=== PATIENT | female | born 1935 | race Two or more races ===

== ENCOUNTER 2016-05-14 | Inpatient (IN) | END 2017-05-13 23:59 | disposition other institution (70) | DRG 189 | DX: J96.10 Chronic respiratory failure, unspecified whether with hypoxia or hypercapnia (principal); I63.412 Cerebral infarction due to embolism of left middle cerebral artery; G93.1 Anoxic brain damage, not elsewhere classified; Z95.1 Presence of aortocoronary bypass graft; I48.2 Chronic atrial fibrillation; G20 Parkinson's disease; Z86.74 Personal history of sudden cardiac arrest; I25.10 Atherosclerotic heart disease of native coronary artery without angina pectoris; I12.9 Hypertensive chronic kidney disease with stage 1 through stage 4 chronic kidney disease, or unspecified chronic kidney disease; N18.9 Chronic kidney disease, unspecified; E78.5 Hyperlipidemia, unspecified ==

== ENCOUNTER 2016-09-16 20:59 | Inpatient (IN) | payer MEDICARE, MEDICAID ==
[~2016-09-16] VITALS: Ht 152.4 cm; Wt 59.0 kg
[~2016-09-16 20:59] MED LIST: ACET160S2 GT; ACID1TAB4 GT; ATOR10TA GT; BIOTENE ORALBAL42 GM MM; BISA10SU12 RC; BLOO-360 IN; CARB-93 GT; CHLO473M3 PO; DOCU100C36 GT; DOCU50LI GT; ENTA200T GT; GLUC10007 MM; HYDR118S4 TP; INSU100V10 SQ; LEVE100S GT; LEVO75TA7 GT; LORA10TA7 GT; MAGN400O6 GT; MODA100T14 GT; MULT240L GT; NA P133E RC; NYST15CR TP; OMEP20TA5 GT; POLY17PO4 GT; RIVA10TA GT; RIVA1PAT3 TD; SIME80TA15 PO; THIA100T8 GT; TRIA15CR2 TP; VITAMIN E OIL; ZINC57OI3 TP; [UNRECOGNIZED DRUG - OTHER]
[2016-09-16] MEDS ORDERED: IV NORMAL SALINE 500 ML BAG IV ONE (21:15)
[2016-09-16 21:34] LABS: BASOPHILS % (AUTO) 0.6 % (0.0-2.0); EOSINOPHILS # (AUTO) 0.3 K/uL (0.0-0.7); EOSINOPHILS % (AUTO) 4.6 % (0.0-7.0); HEMOGLOBIN 11.9 G/DL (12.0-16.0); LYMPHOCYTES # (AUTO) 2.2 K/uL (20.0-40.0); LYMPHOCYTES % (AUTO) 33.3 % (20.5-51.5); MEAN CORPUSCULAR HEMOGLOBIN 29.9 UUG (27.0-31.0); MEAN CORPUSCULAR HGB CONC 34 g/dL (32.0-37.0); MEAN CORPUSCULAR VOLUME 87.9 FL (81.0-99.0); MONOCYTES # (AUTO) 0.8 K/uL (2.0-10.0); MONOCYTES % (AUTO) 12.6 % (0.0-11.0); NEUTROPHILS # (AUTO) 3.2 K/uL (1.8-8.9); NEUTROPHILS % (AUTO) 48.9 % (38.5-71.5); PLATELET COUNT (AUTO) 219 K/UL (150-450); RED BLOOD CELL COUNT(AUTO) 3.98 MIL/UL (4.2-5.4); WHITE BLOOD COUNT (AUTO) 6.5 K/UL (4.0-11.2)
[2016-09-16 21:36] LABS: CREATININE 0.8 mg/dL (0.6-1.3); POTASSIUM 4.2 mmol/L (3.5-5.1)
[2016-09-16 21:49] LABS: BILIRUBIN,DIRECT 0.1 mg/dL (0.0-0.2); BILIRUBIN,TOTAL 0.4 mg/dL (0.2-1.0); TOTAL PROTEIN, SERUM 7.3 g/dL (6.4-8.2)
[2016-09-16] MEDS ORDERED: FAMO-132 GT (22:28)
[2016-09-16] MEDS ORDERED: SODI100010 PO (22:28)
[2016-09-16] MEDS ORDERED: DULO60CA45 PO (22:28)
[2016-09-16] MEDS ORDERED: DEXT50DI8 IV (22:28)
[2016-09-16] MEDS ORDERED: METO25TA6 GT (22:28)
[2016-09-16] MEDS ORDERED: RIVA1PAT2 TD (22:28)
[2016-09-16] MEDS ORDERED: RASA1TAB GT (22:28)
[2016-09-16] MEDS ORDERED: MEMA10TA GT (22:28)
[2016-09-16] MEDS ORDERED: CYAN10006 IM (22:28)
--- NOTE | 2016-09-16 22:51 | NUR ---
Call placed to [facility] for Panel call. Call back pending.
--- NOTE | 2016-09-16 23:08 | NUR ---
Pt. admitted to Telemetry , under care of Dr. Mendoza. Dx: Atrial Fibrilation with RVR. Belongs List completed
[2016-09-16] MEDS ORDERED: DIGOXIN 250 MCG TABLET PO ONE (23:30)
[2016-09-16] MEDS ORDERED: ACETAMINOPHEN 650 MG/20.3 ML LIQUID UDC GT PRN (23:30)
--- NOTE | 2016-09-16 23:30 | NUR ---
Patient arrived from ER via gurney, accompanied by son Toni. Patient is alert, non verbal, responds to name and touch, in no acute distress. Patient is placed on tele under the care of Dr. Mendoza. Dx: Afib w/ rapid ventricular response. Routine admission plan of care done, belonging list done. Will continue to monitor. Addendum: 09/17/16 at 0458 by BAUTISTA SNOWDEN RN Routine admission care done, plan of care initiated.
[2016-09-16] MEDS ORDERED: ONDANSETRON 4 MG/2 ML VIAL IV PRN (23:45)
[2016-09-16] MEDS ORDERED: DEXTROSE 50% 50 ML DISP.SYRIN IV PRN (23:45)
[2016-09-16] MEDS ORDERED: DIGOXIN 125 MCG TABLET ONE (23:56)
[2016-09-17 00:15] VITALS: BP 106/72
[2016-09-17 04:00] VITALS: BP 125/68
[2016-09-17] MEDS: BLOOD SUGAR DIAGNOSTIC 1 EACH STRIP VI SCH ×4 (06:38→20:46)
--- NOTE | 2016-09-17 06:45 | NUR ---
Patient slept intermittently, in no acute distress. All trach/respiratory supplies available at bedside. Patient on tele Afib
[2016-09-17] MEDS ORDERED: DIGOXIN 500 MCG/2 ML AMP IV ONE (07:30)
[2016-09-17 07:57] LABS: BILIRUBIN,TOTAL 0.2 mg/dL (0.2-1.0); CREATININE 0.8 mg/dL (0.6-1.3); MAGNESIUM 1.7 mg/dL (1.8-2.4); PHOSPHOROUS 4.1 mg/dL (2.5-4.9); POTASSIUM 4.1 mmol/L (3.5-5.1); TOTAL PROTEIN, SERUM 7.1 g/dL (6.4-8.2)
[2016-09-17] MEDS: PANTOPRAZOLE ORAL SUSPENSION 40 MG SUSPDR.PKT GT SCH (08:02)
[2016-09-17 08:03] LABS: EOSINOPHILS # (AUTO) 0.3 K/uL (0.0-0.7); EOSINOPHILS % (AUTO) 4.2 % (0.0-7.0); HEMATOCRIT 34.1 % (37-47); HEMOGLOBIN 11.6 G/DL (12.0-16.0); LYMPHOCYTES # (AUTO) 2.3 K/uL (20.0-40.0); LYMPHOCYTES % (AUTO) 31.4 % (20.5-51.5); MEAN CORPUSCULAR HEMOGLOBIN 30.2 UUG (27.0-31.0); MEAN CORPUSCULAR HGB CONC 34 g/dL (32.0-37.0); MONOCYTES # (AUTO) 0.9 K/uL (2.0-10.0); MONOCYTES % (AUTO) 12.7 % (0.0-11.0); NEUTROPHILS # (AUTO) 3.8 K/uL (1.8-8.9); NEUTROPHILS % (AUTO) 51.7 % (38.5-71.5); PLATELET COUNT (AUTO) 216 K/UL (150-450); RED BLOOD CELL COUNT(AUTO) 3.83 MIL/UL (4.2-5.4); WHITE BLOOD COUNT (AUTO) 7.3 K/UL (4.0-11.2)
[2016-09-17] MEDS ORDERED: BETH25TA PO (09:20)
[2016-09-17] MEDS ORDERED: BACL10TA PO (09:20)
[2016-09-17] MEDS ORDERED: BISA10SU8 RC (09:21)
[2016-09-17] MEDS ORDERED: CARB-94 GT (09:22)
[2016-09-17] MEDS ORDERED: LEVO75TA7 GT (09:25)
[2016-09-17] MEDS ORDERED: MODA200T22 PO (09:26)
[2016-09-17] MEDS ORDERED: CRAN500C3 GT (09:27)
[2016-09-17] MEDS ORDERED: HYDR118S4 TP (09:30)
[2016-09-17] MEDS ORDERED: INSU100V28 SQ (09:35)
[2016-09-17] MEDS ORDERED: RIVASTIGMINE 4.6 MG PATCH TD SCH (10:00)
[2016-09-17] MEDS ORDERED: MULTIVITAMINS THERAPEUTIC GT SCH (10:00)
[2016-09-17] MEDS ORDERED: MODAFINIL 200 MG PO SCH (10:00)
[2016-09-17] MEDS ORDERED: BISACODYL 10 MG SUPP.RECT RC PRN (10:00)
[2016-09-17] MEDS ORDERED: SIMETHICONE 80 MG TAB.CHEW GT PRN (10:00)
[2016-09-17] MEDS: MAGNESIUM SULFATE/D5W 100 ML IV SCH ×2 (10:52→11:47)
[2016-09-17] MEDS: LEVETIRACETAM 500 MG/5 ML LIQUID UDC GT SCH ×2 (11:12→20:06)
[2016-09-17] MEDS: MIRALAX 17 GM POWD.PACK GT SCH (11:12)
[2016-09-17] MEDS: MODAFINIL 100 MG TABLET GT SCH (11:13)
[2016-09-17] MEDS: ACIDOPHILUS/BULGARICUS CHEW TAB GT SCH ×2 (11:13→20:06)
[2016-09-17] MEDS: MEMANTINE HCL 10 MG TABLET GT SCH ×2 (11:13→16:50)
[2016-09-17] MEDS: DOCUSATE SODIUM 100 MG/10 ML LIQUID UDC GT SCH ×2 (11:13→20:06)
[2016-09-17] MEDS: BETHANECHOL CHLORIDE 25 MG TABLET GT SCH ×3 (11:13→16:50)
[2016-09-17] MEDS: RIVASTIGMINE 13.3 MG TOP SCH (11:15)
[2016-09-17 11:56] VITALS: BP 132/94
[2016-09-17] MEDS ORDERED: METOPROLOL TARTRATE 5 MG/5 ML VIAL IVP PRN (12:00)
--- NOTE | 2016-09-17 12:00 | NUR ---
HEART RATE SUSTAINING ON 127-130 AFIB LAND ACQUISITION ANALYST NOTIFIED WITH ORDERS. STATUS CHANGE TO JOSE
[2016-09-17] MEDS: CARBIDOPA/LEVODOPA 25-250MG TABLET GT SCH ×3 (13:07→20:06)
[2016-09-17] MEDS: ENTACAPONE 200 MG TABLET GT SCH ×3 (13:07→20:06)
[2016-09-17] MEDS: INSULIN REGULAR, HUMAN 300 UNIT/3 ML VIAL SQ PRN ×3 (13:17→20:49)
--- NOTE | 2016-09-17 14:30 | NUR ---
DR DILLARD CHANGED PATIENT STATUS TO JOSE, REMAINS AFIB, IN AND OUT CONTROLLED/UNCONTROLLED, NO SIGNS OF DISTRESS NOTED.
[2016-09-17 16:34] VITALS: BP 115/69
[2016-09-17] MEDS: METOPROLOL TARTRATE 25 MG TABLET GT SCH ×2 (16:50→21:53)
[2016-09-17 17:34] LABS: *BILIRUBIN,URIN NEGATIVE (NEGATIVE); *BLOOD, URINE Trace-intact (NEGATIVE); *CLARITY,URINE SLIGHTLY CLOUDY (CLEAR); *COLOR,URINE YELLOW (YELLOW); *KETONES,URINE NEGATIVE (NEGATIVE); *PROTEIN,URINE NEGATIVE (NEGATIVE); *UROBILINOGEN,URINE 0.2 E.U./dl (NORMAL); LEUKOCYTE ESTERASE ,URINE 2+ (NEGATIVE); NITRITE, URINE NEGATIVE (NEGATIVE); PH,URINE 5.5 (5.0-8.0); UGLUCOSE NEGATIVE (NEGATIVE)
[2016-09-17 18:00] LABS: BACTERIA,URINE MANY /HPF (NONE SEEN); SQUAMOUS EPITHELIAL CELL,UR FEW /HPF (NONE SEEN); WBC,URINE 50-80 /HPF (0-3)
[2016-09-17 20:00] VITALS: BP 112/82
--- NOTE | 2016-09-17 20:00 | NUR ---
PT RECEIVED IN BED RESTING COMFORTABLY, SON AT BEDSIDE. IV HEP LOCK IN LEFT FOREARM #20 INTACT AND FLUSHED WITH SALINE. PT HAS G-TUBE INTACT AND CHECKED FOR PLACEMENT, RESIDUAL 5CC. BLOOD PRESSURE WNL, SPO2 AT 95%, TRACH COLLAR INTACT AT 6L. PATIENT REMAINS ON TELE MONITOR, A-FIB CONTROLLED/UNCONTROLLED, PT ASYMPTOMATIC. NO ACUTE DISTRESS NOTED. BED IN LOW AND LOCKED POSITION. SAFETY MEASURES MAINTAINED.
[2016-09-17] MEDS ORDERED: METOPROLOL TARTRATE 25 MG TABLET GT SCH (21:00)
[2016-09-17] MEDS ORDERED: DULOXETINE 60 MG CAPSULE.DR PO SCH (21:00)
[2016-09-17] MEDS ORDERED: BACLOFEN 10 MG TABLET GT SCH (21:00)
[2016-09-17] MEDS ORDERED: RIVAROXABAN 15 MG TABLET GT SCH (21:00)
[2016-09-17] MEDS ORDERED: INSULIN DETEMIR 300 UNIT/3 ML CARTRIDGE SQ SCH (21:00)
[2016-09-17] MEDS ORDERED: THIAMINE HCL 100 MG TABLET GT SCH (21:00)
[2016-09-17] MEDS ORDERED: RIVAROXABAN 10 MG TABLET GT SCH (21:00)
[2016-09-17] MEDS ORDERED: RASAGILINE 1 MG GT SCH (21:00)
[2016-09-17] MEDS ORDERED: ATORVASTATIN 10 MG TABLET GT SCH (21:00)
[2016-09-17] MEDS ORDERED: MULTIVITS W-FE,OTHER MIN 15 ML UDC GT SCH (21:00)
[2016-09-17] MEDS ORDERED: CEFTRIAXONE 1 G in IV DEXTROSE 5% 50 ML IV SCH (21:00)
[2016-09-17] MEDS ORDERED: ATORVASTATIN 40 MG TABLET GT SCH (21:00)
--- NOTE | 2016-09-17 22:00 | NUR ---
PT TOLERATED MEDICATIONS AT BEDTIME. BLOOD SUGAR 170MG/DL NO SIGNS AND SYMPTOMS HYPO/HYPERGLYCEMIA. PT GIVEN BOOST VIA G-TUBE, TOLERATED WELL, RESIDUAL 5CC. NO ACUTE DISTRESS NOTED. WILL CONTINUE TO MONITOR FOR SAFETY.
[2016-09-17] MEDS ORDERED: CEFTRIAXONE 500 MG VIAL ONE (22:17)
[2016-09-17 23:25] VITALS: BP 103/65
--- NOTE | 2016-09-17 23:30 | NUR ---
PATIENT REMAINS ON TELE MONITOR, SHOWING SINUS ANISHA BUT UNSUSTAINABLE AND RETURNING TO 70/S, MD ON UNIT AND MADE AWARE, NO INTERVENTIONS ORDERED. WILL CONTINUE TO MONITOR FOR SAFETY.
[2016-09-18] VITALS: BP 106/66
[2016-09-18] MEDS: ENTACAPONE 200 MG TABLET GT SCH ×4 (00:28→12:27)
[2016-09-18] MEDS: CARBIDOPA/LEVODOPA 25-250MG TABLET GT SCH ×4 (00:28→12:27)
--- NOTE | 2016-09-18 03:19 | NUR ---
PATIENT RESTING COMFORTABLY IN BED AT THIS TIME. PT ON TELE MONITOR IN THE 80'S. NO ACUTE DISTRESS NOTED. WILL CONTINUE TO MONITOR FOR SAFETY.
[2016-09-18 04:00] VITALS: BP 123/86
[2016-09-18] MEDS: METOPROLOL TARTRATE 25 MG TABLET GT SCH ×2 (05:28→14:00)
[2016-09-18] MEDS: PANTOPRAZOLE ORAL SUSPENSION 40 MG SUSPDR.PKT GT SCH (05:28)
--- NOTE | 2016-09-18 05:37 | NUR ---
patient tolerated medications well via g-tube, residual 5cc. Pt suctioned prn as ordered. No acute distress noted. safety measures maintained.
[2016-09-18] MEDS ORDERED: LEVOTHYROXINE SODIUM 75 MCG TABLET GT SCH (06:00)
--- NOTE | 2016-09-18 06:21 | NUR ---
PATIENT BLOOD SUGAR THIS AM 130MG/DL, NO S/S HYPO/HYPERGLYCEMIA. PT ASSISTED WITH DIAPER CHANGE BY STAFF. PT SUCTIONED NEEDED. HEP LOCK INTACT. TRACH AT 6L SPO2 AT 95%. NO ACUTE DISTRESS NOTED. SAFETY MEASURES MAINTAINED.
[2016-09-18] MEDS: BLOOD SUGAR DIAGNOSTIC 1 EACH STRIP VI SCH ×2 (06:30→12:28)
[2016-09-18 07:06] LABS: THYROID STIMULATING HORMONE 2.884 mIU/mL (0.358-3.740)
[2016-09-18 07:17] LABS: BASOPHILS % (AUTO) 0.3 % (0.0-2.0); EOSINOPHILS # (AUTO) 0.4 K/uL (0.0-0.7); EOSINOPHILS % (AUTO) 5.4 % (0.0-7.0); HEMATOCRIT 36.3 % (37-47); LYMPHOCYTES # (AUTO) 2.1 K/uL (20.0-40.0); MEAN CORPUSCULAR HEMOGLOBIN 29.4 UUG (27.0-31.0); MEAN CORPUSCULAR HGB CONC 33 g/dL (32.0-37.0); MEAN CORPUSCULAR VOLUME 88.7 FL (81.0-99.0); MONOCYTES # (AUTO) 0.8 K/uL (2.0-10.0); MONOCYTES % (AUTO) 10.8 % (0.0-11.0); NEUTROPHILS # (AUTO) 4.5 K/uL (1.8-8.9); NEUTROPHILS % (AUTO) 56.5 % (38.5-71.5); PLATELET COUNT (AUTO) 231 K/UL (150-450); WHITE BLOOD COUNT (AUTO) 7.8 K/UL (4.0-11.2)
[2016-09-18 07:57] LABS: BILIRUBIN,TOTAL 0.5 mg/dL (0.2-1.0); CREATININE 0.6 mg/dL (0.6-1.3); MAGNESIUM 2.3 mg/dL (1.8-2.4); PHOSPHOROUS 3.5 mg/dL (2.5-4.9); POTASSIUM 4.2 mmol/L (3.5-5.1); TOTAL PROTEIN, SERUM 7.3 g/dL (6.4-8.2)
--- NOTE | 2016-09-18 08:00 | NUR ---
RECEIVED IN BED AWAKE CONFUSED AND DISORIENTED BUT WITH [employer] CONTACT ALL NEEDS ANTICIPATED AND SATISFIED.MAX ASSIST FOR ALL ADL.ORAL FOOD GIVEN HER GT REMAINS INTACT BUT NOT IN USE AT THIS TIME.TRACH INTACT WITH O2 WITH NO SHORTNESS OF BREATH NOT IN DISTRESS NOTED.
[2016-09-18] MEDS: MIRALAX 17 GM POWD.PACK GT SCH (08:49)
[2016-09-18] MEDS: DOCUSATE SODIUM 100 MG/10 ML LIQUID UDC GT SCH (08:49)
[2016-09-18] MEDS: LEVETIRACETAM 500 MG/5 ML LIQUID UDC GT SCH (08:49)
[2016-09-18] MEDS: MEMANTINE HCL 10 MG TABLET GT SCH (08:50)
[2016-09-18] MEDS: BETHANECHOL CHLORIDE 25 MG TABLET GT SCH ×2 (08:50→12:27)
[2016-09-18] MEDS: MODAFINIL 100 MG TABLET GT SCH (08:50)
[2016-09-18] MEDS: RIVASTIGMINE 13.3 MG TOP SCH (08:50)
[2016-09-18] MEDS: ACIDOPHILUS/BULGARICUS CHEW TAB GT SCH (08:50)
[2016-09-18] MEDS ORDERED: DULOXETINE 20 MG CAPSULE.DR PO SCH (09:00)
--- NOTE | 2016-09-18 10:00 | NUR ---
PHYSICAL SCIENCE AIDE AT THE BEDSIDE AND REQUESTING FOR HER DIET TO BE CHANGED TO REGULAR CONSISITENCY DIET SHAHZAD TERRY NOTIFIED WITH NO NEW ORDER AT THIS TIME.
[2016-09-18] MEDS ORDERED: INSU100I19 SQ (11:49)
[2016-09-18] MEDS ORDERED: THIA100T13 GT (11:49)
[2016-09-18] MEDS ORDERED: INSU100V28 SQ (11:49)
[2016-09-18] MEDS ORDERED: DOCU50LI GT (11:49)
[2016-09-18] MEDS ORDERED: ACID1TAB4 GT (11:49)
[2016-09-18] MEDS ORDERED: RIVA15TA GT (11:49)
[2016-09-18] MEDS ORDERED: BISA10SU12 RC (11:49)
[2016-09-18] MEDS ORDERED: LEVO75TA7 GT (11:49)
[2016-09-18] MEDS ORDERED: Patient's Own Med TOP (11:49)
[2016-09-18] MEDS ORDERED: DULO20CA PO (11:49)
[2016-09-18] MEDS ORDERED: SIME80TA45 GT (11:49)
[2016-09-18] MEDS ORDERED: Patient's Own Med GT (11:49)
[2016-09-18] MEDS ORDERED: ATOR40TA GT (11:49)
[2016-09-18] MEDS ORDERED: Blood Sugar Diagnostic VI (11:49)
[2016-09-18] MEDS ORDERED: LEVE100S GT (11:49)
[2016-09-18] MEDS ORDERED: PANT40SU2 GT (11:49)
[2016-09-18] MEDS ORDERED: POLY17PO4 GT (11:49)
[2016-09-18] MEDS ORDERED: MODA100T14 GT (11:49)
[2016-09-18] MEDS ORDERED: Ondansetron Hcl/Pf IV (11:49)
[2016-09-18] MEDS ORDERED: ACET650S26 GT (11:49)
[2016-09-18] MEDS ORDERED: MEMA10TA GT (11:49)
[2016-09-18] MEDS ORDERED: Baclofen GT (11:49)
[2016-09-18] MEDS ORDERED: ENTA200T GT (11:49)
[2016-09-18] MEDS ORDERED: CEFT1PIG2 IV (11:49)
[2016-09-18] MEDS ORDERED: BETH25TA9 GT (11:49)
[2016-09-18] MEDS ORDERED: DEXT50DI8 IV (11:49)
[2016-09-18] MEDS ORDERED: Metoprolol Tartrate GT (11:49)
[2016-09-18] MEDS ORDERED: MULT240L3 GT (11:49)
[2016-09-18] MEDS ORDERED: CARB1TAB24 GT (11:49)
[2016-09-18 11:57] VITALS: BP 130/80
[2016-09-18] MEDS: INSULIN REGULAR, HUMAN 300 UNIT/3 ML VIAL SQ PRN (12:30)
[2016-09-18 14:00] VITALS: BP 129/79
--- NOTE | 2016-09-18 14:10 | NUR ---
PATIENT DISCHARGED BY BED PICKED TO SUB ACUTE 4TH FLOOR ORDERED AND REPORT GIVEN TO THE RN FOR CONTINUING CARE HEPLOCK LEFT FOREARM REMAINS INTACT AT THIS TIME.
== END 2016-09-18 14:10 | DRG 309 ==
LOC: ER 21:01 → TELE 23:12 → TELE-TD 09-17 12:01 → TELE 09-17 16:10
PROVIDERS: ADMIT Internal Medicine; ATTEND Nurse Practitioner Acute Care
PROC: 5A1935Z Respiratory Ventilation, Less than 24 Consecutive Hours (ICD-10-PCS; principal; 2016-09-17)
DX: I48.91 Unspecified atrial fibrillation (principal); G93.1 Anoxic brain damage, not elsewhere classified; E44.0 Moderate protein-calorie malnutrition; J96.10 Chronic respiratory failure, unspecified whether with hypoxia or hypercapnia; N39.0 Urinary tract infection, site not specified; I69.354 Hemiplegia and hemiparesis following cerebral infarction affecting left non-dominant side; I48.92 Unspecified atrial flutter; D64.9 Anemia, unspecified; I25.10 Atherosclerotic heart disease of native coronary artery without angina pectoris; Z95.1 Presence of aortocoronary bypass graft; Z93.0 Tracheostomy status; Z93.1 Gastrostomy status; E03.9 Hypothyroidism, unspecified; R13.10 Dysphagia, unspecified; Z88.8 Allergy status to other drugs, medicaments and biological substances; Z74.01 Bed confinement status; Z86.74 Personal history of sudden cardiac arrest; G20 Parkinson's disease; I50.9 Heart failure, unspecified; E11.65 Type 2 diabetes mellitus with hyperglycemia; E83.42 Hypomagnesemia; E78.5 Hyperlipidemia, unspecified; Z87.01 Personal history of pneumonia (recurrent); Z86.718 Personal history of other venous thrombosis and embolism; G40.909 Epilepsy, unspecified, not intractable, without status epilepticus; I12.9 Hypertensive chronic kidney disease with stage 1 through stage 4 chronic kidney disease, or unspecified chronic kidney disease; E11.22 Type 2 diabetes mellitus with diabetic chronic kidney disease; N18.9 Chronic kidney disease, unspecified
CPT/HCPCS: 36415; 70030-TC; 71010; 83735; 84100; 84443; 85025; 85730; 87077; 87086; 93005; 93307; A4217; A4663; C1758; J0696; J1160; J1815; J3475; J3490; J7040; J7050; J7060

== ENCOUNTER 2017-05-14 | Inpatient (IN) | END 2018-05-13 11:59 | disposition other institution (70) | DRG 189 | DX: J96.11 Chronic respiratory failure with hypoxia (principal); I50.33 Acute on chronic diastolic (congestive) heart failure; J69.0 Pneumonitis due to inhalation of food and vomit; N17.0 Acute kidney failure with tubular necrosis; R53.2 Functional quadriplegia; G93.1 Anoxic brain damage, not elsewhere classified; D68.59 Other primary thrombophilia; I13.0 Hypertensive heart and chronic kidney disease with heart failure and stage 1 through stage 4 chronic kidney disease, or unspecified chronic kidney disease; I48.92 Unspecified atrial flutter; I69.351 Hemiplegia and hemiparesis following cerebral infarction affecting right dominant side; M48.56XA Collapsed vertebra, not elsewhere classified, lumbar region, initial encounter for fracture; N39.0 Urinary tract infection, site not specified; D50.9 Iron deficiency anemia, unspecified; Z95.1 Presence of aortocoronary bypass graft; I48.2 Chronic atrial fibrillation; G20 Parkinson's disease; Z86.74 Personal history of sudden cardiac arrest; I25.10 Atherosclerotic heart disease of native coronary artery without angina pectoris; I12.9 Hypertensive chronic kidney disease with stage 1 through stage 4 chronic kidney disease, or unspecified chronic kidney disease; N18.9 Chronic kidney disease, unspecified; E78.5 Hyperlipidemia, unspecified; B96.1 Klebsiella pneumoniae [K. pneumoniae] as the cause of diseases classified elsewhere; B96.20 Unspecified Escherichia coli [E. coli] as the cause of diseases classified elsewhere; E03.9 Hypothyroidism, unspecified; I69.398 Other sequelae of cerebral infarction; E11.22 Type 2 diabetes mellitus with diabetic chronic kidney disease; E11.649 Type 2 diabetes mellitus with hypoglycemia without coma; F02.80 Dementia in other diseases classified elsewhere, unspecified severity, without behavioral disturbance, psychotic disturbance, mood disturbance, and anxiety; G89.29 Other chronic pain; I48.0 Paroxysmal atrial fibrillation; T80.89XA Other complications following infusion, transfusion and therapeutic injection, initial encounter; Y84.8 Other medical procedures as the cause of abnormal reaction of the patient, or of later complication, without mention of misadventure at the time of the procedure; Y92.230 Patient room in hospital as the place of occurrence of the external cause; Z79.01 Long term (current) use of anticoagulants; I49.5 Sick sinus syndrome; I69.320 Aphasia following cerebral infarction; I70.0 Atherosclerosis of aorta; I70.8 Atherosclerosis of other arteries; J40 Bronchitis, not specified as acute or chronic; K40.90 Unilateral inguinal hernia, without obstruction or gangrene, not specified as recurrent; K59.00 Constipation, unspecified; K80.20 Calculus of gallbladder without cholecystitis without obstruction; K82.8 Other specified diseases of gallbladder; L30.9 Dermatitis, unspecified; M19.90 Unspecified osteoarthritis, unspecified site; M77.31 Calcaneal spur, right foot; N31.9 Neuromuscular dysfunction of bladder, unspecified; R13.10 Dysphagia, unspecified; Z93.0 Tracheostomy status; Z74.01 Bed confinement status; Z87.440 Personal history of urinary (tract) infections; Z93.1 Gastrostomy status ==

== ENCOUNTER 2017-08-15 22:19 | Inpatient (IN) | payer MEDICARE, MEDICAID ==
[~2017-08-15] VITALS: Ht 152.4 cm; Wt 62.7 kg
[~2017-08-15 22:19] MED LIST changes: -ACET160S2 GT; +ACET650S26 GT; -ATOR10TA GT; +ATOR40TA GT; +BETH25TA9 GT; -BLOO-360 IN; +Baclofen GT; +Blood Sugar Diagnostic VI; -CARB-93 GT; +CARB1TAB24 GT; +CEFT1PIG2 IV; -CHLO473M3 PO; +DEXT50DI8 IV; -DOCU100C36 GT; +DULO20CA PO; +INSU100I19 SQ; -INSU100V10 SQ; +INSU100V28 SQ; -LORA10TA7 GT; -MAGN400O6 GT; +MEMA10TA GT; -MULT240L GT; +MULT240L3 GT; +Metoprolol Tartrate GT; -NA P133E RC; -NYST15CR TP; -OMEP20TA5 GT; +Ondansetron Hcl/Pf IV; +PANT40SU2 GT; +Patient's Own Med GT; +Patient's Own Med TOP; -RIVA10TA GT; +RIVA15TA GT; -RIVA1PAT3 TD; -SIME80TA15 PO; +SIME80TA45 GT; +THIA100T13 GT; -THIA100T8 GT; -TRIA15CR2 TP; -VITAMIN E OIL; -[UNRECOGNIZED DRUG - OTHER]
--- NOTE | 2017-08-15 22:25 | NUR ---
PT BROUGHT DOWN FROM SUBACUTE FOR REPORTED BRADYCARDIA IN THE HIGH 30'S-40'S. PT PRESENTS W/ TRACH, FE, AND PRATIBHA. PT PLACED ON MONITOR AND PULSE OX. EKG COMPLETED.
--- NOTE | 2017-08-15 22:42 | NUR ---
DR GLEZ, MUKUND MD AT BEDSIDE FOR MSE.
--- NOTE | 2017-08-15 23:15 | NUR ---
LAB AT BLOOD SIDE FOR BLOOD DRAW. URINE SAMPLE FROM [place] PROVIDED.
[2017-08-15 23:17] LABS: *BILIRUBIN,URIN NEGATIVE (NEGATIVE); *BLOOD, URINE NEGATIVE (NEGATIVE); *CLARITY,URINE CLEAR (CLEAR); *COLOR,URINE YELLOW (YELLOW); *KETONES,URINE NEGATIVE (NEGATIVE); *PROTEIN,URINE NEGATIVE (NEGATIVE); *UROBILINOGEN,URINE 0.2 E.U./dl (NORMAL); LEUKOCYTE ESTERASE ,URINE 2+ (NEGATIVE); NITRITE, URINE NEGATIVE (NEGATIVE); PH,URINE 8.5 (5.0-8.0); UGLUCOSE NEGATIVE (NEGATIVE)
[2017-08-15 23:18] LABS: BASOPHILS % (AUTO) 0.4 % (0.0-2.0); EOSINOPHILS # (AUTO) 0.1 K/uL (0.0-0.7); EOSINOPHILS % (AUTO) 2.1 % (0.0-7.0); HEMATOCRIT 33.3 % (31.2-41.9); HEMOGLOBIN 11.3 g/dL (10.9-14.3); LYMPHOCYTES # (AUTO) 1.7 K/uL (20.0-40.0); LYMPHOCYTES % (AUTO) 24.9 % (20.5-51.5); MEAN CORPUSCULAR HGB CONC 34 g/dL (32.3-35.6); MEAN CORPUSCULAR VOLUME 90.9 fL (75.5-95.3); MONOCYTES % (AUTO) 14.9 % (0.0-11.0); NEUTROPHILS # (AUTO) 3.9 K/uL (1.8-8.9); NEUTROPHILS % (AUTO) 57.7 % (38.5-71.5); PLATELET COUNT (AUTO) 176 K/uL (179-408); RED BLOOD CELL COUNT(AUTO) 3.66 MIL/uL (3.63-4.92); WHITE BLOOD COUNT (AUTO) 6.8 K/uL (3.8-11.8)
[2017-08-15 23:27] LABS: CARBON DIOXIDE 28 mmol/L (21-32); CHLORIDE 102 mmol/L (98-107); CREATININE 0.7 mg/dL (0.6-1.3); GLUCOSE 147 mg/dL (74-106); UREA NITROGEN, BLOOD 23 mg/dL (7-18)
[2017-08-15 23:28] LABS: BACTERIA,URINE FEW /HPF (NONE SEEN); SQUAMOUS EPITHELIAL CELL,UR FEW /HPF (NONE SEEN); YEAST,URINE FEW /HPF (NONE SEEN)
[2017-08-15 23:29] LABS: RENAL EPITHELIAL CELLS,URINE FEW /LPF (NONE SEEN)
--- NOTE | 2017-08-15 23:30 | NUR ---
CALLED FOR BED ASSIGNMENT IN JOSE.
[2017-08-15 23:39] LABS: ALANINE AMINOTRANSFERASE 23 U/L (14-59); ALKALINE PHOSPHATASE 76 U/L (50-136); ASPARTATE AMINOTRANSFERASE 21 U/L (15-37); BILIRUBIN,DIRECT 0.1 mg/dL (0.0-0.2); BILIRUBIN,TOTAL 0.4 mg/dL (0.2-1.0); TOTAL PROTEIN, SERUM 7.9 g/dL (6.4-8.2)
--- NOTE | 2017-08-15 23:57 | NUR ---
Panel call placed for patient admission.
[2017-08-16] VITALS (7 sets, daily range): BP systolic 104–140; BP diastolic 35–74
--- NOTE | 2017-08-16 00:03 | NUR ---
XRAY AT PT BEDSIDE.
[2017-08-16] MEDS ORDERED: CEFTRIAXONE 1 G in IV DEXTROSE 5% 50 ML IV SCH (01:00)
[2017-08-16] MEDS ORDERED: ONDANSETRON 4 MG/2 ML VIAL IV PRN (01:00)
[2017-08-16] MEDS ORDERED: ACETAMINOPHEN 325 MG TABLET PO PRN (01:00)
[2017-08-16] MEDS ORDERED: MAGNESIUM HYDROXIDE 30 ML LIQUID UDC PO PRN (01:00)
[2017-08-16] MEDS ORDERED: DEXTROSE 50% 50 ML DISP.SYRIN IV PRN ×3 (01:15→14:15)
[2017-08-16] MEDS ORDERED: SIMETHICONE 80 MG TAB.CHEW GT PRN (01:15)
[2017-08-16] MEDS ORDERED: INSULIN REGULAR, HUMAN 300 UNIT/3 ML VIAL SQ PRN ×3 (01:15→08:45)
[2017-08-16] MEDS ORDERED: MULTIVITS W-FE,OTHER MIN 15 ML UDC GT SCH ×2 (01:15→07:30)
[2017-08-16] MEDS ORDERED: BISACODYL 10 MG SUPP.RECT RC PRN (01:15)
--- NOTE | 2017-08-16 01:48 | NUR ---
Pt. admitted to JOSE, under care of Dr. SIU Belongs List completed
[2017-08-16] MEDS ORDERED: CEFTRIAXONE 1 G VIAL ONE (01:49)
--- NOTE | 2017-08-16 01:50 | NUR ---
Ad[facility] this [facility] NSTEMI. Patient is non verbal, with trach Shiley #[address], O2Sat 100% in O2 6L/mask. Placed on cook pressure- shows sinus Bradycardia 43. Vital signs shows BP 140/35 HR 43 T= 98.6F/oral. No signs of distress noted. Lab shows patient has elevated WBC in urine. Rocephin 1 gm IVPB supposed to be given but it was D/Cd by MD & switched to Cefepime 1 gm. Family in room, very anxious & wants their mother to be moved to ICU & be seen by the Healthcare Management ADA. Paged MD telephone order supervisor.
--- NOTE | 2017-08-16 02:15 | NUR ---
Patient resting comfortably, sinus Morris on the monitor HR 43. But family remains anxious & now requesting for a hospital ([facility]) transfer. notified.
[2017-08-16] MEDS: CARBIDOPA/LEVODOPA 25-250MG TABLET GT SCH ×6 (02:39→23:21)
[2017-08-16] MEDS: ENTACAPONE 200 MG TABLET GT SCH ×6 (02:39→23:21)
[2017-08-16] MEDS ORDERED: CEFEPIME HCL 1 G VIAL ONE (05:43)
[2017-08-16] MEDS: CEFEPIME HCL 1 G in IV DEXTROSE 5% 50 ML IV SCH ×2 (05:49→14:08)
[2017-08-16] MEDS: LEVOTHYROXINE SODIUM 75 MCG TABLET GT SCH (05:51)
[2017-08-16] MEDS: ACETAMINOPHEN 650 MG/20.3 ML LIQUID UDC GT PRN (05:51)
[2017-08-16] MEDS ORDERED: PANTOPRAZOLE ORAL SUSPENSION 40 MG SUSPDR.PKT GT SCH (06:00)
--- NOTE | 2017-08-16 06:00 | NUR ---
Scheduled Cefepime IV antibiotic not administered. Family (Ali/son) refused. Tele sinus justina HR 44. No signs of distress noted.
--- NOTE | 2017-08-16 07:23 | NUR ---
Patient moved to CCU (bed 3) but JOSE status. Shift report given to KEVIN Moody.
[2017-08-16] MEDS: ACIDOPHILUS/BULGARICUS CHEW TAB GT SCH ×2 (08:58→21:02)
[2017-08-16] MEDS: DOCUSATE SODIUM 100 MG/10 ML LIQUID UDC GT SCH ×2 (08:58→21:01)
[2017-08-16] MEDS: MIRALAX 17 GM POWD.PACK GT SCH (08:58)
[2017-08-16] MEDS: MEMANTINE HCL 10 MG TABLET GT SCH ×2 (08:58→16:28)
[2017-08-16] MEDS ORDERED: [UNRECOGNIZED DRUG - OTHER] TOP SCH (09:00)
[2017-08-16] MEDS ORDERED: PATIENT MAY USE OWN MED- MD OK TOP SCH (09:00)
[2017-08-16] MEDS ORDERED: DULOXETINE 20 MG CAPSULE.DR PO SCH (09:00)
[2017-08-16] MEDS: LEVETIRACETAM 500 MG/5 ML LIQUID UDC GT SCH ×2 (09:15→21:01)
[2017-08-16] MEDS: BETHANECHOL CHLORIDE 25 MG TABLET GT SCH ×3 (09:15→16:28)
[2017-08-16] MEDS: MODAFINIL 100 MG TABLET GT SCH (09:24)
--- NOTE | 2017-08-16 10:27 | NUR ---
US tech here to see pt for 2D Echocardiogram.
[2017-08-16] MEDS ORDERED: FAMO20TA8 GT (12:22)
[2017-08-16] MEDS ORDERED: MAGN400T30 PO ×2 (12:22→12:24)
[2017-08-16] MEDS ORDERED: FAMO-130 GT (12:23)
[2017-08-16] MEDS ORDERED: AMAN100T GT (12:25)
[2017-08-16] MEDS ORDERED: CALC-245 PO (12:25)
[2017-08-16] MEDS ORDERED: CHOL10002 PO (12:25)
[2017-08-16] MEDS ORDERED: NUT.237L70 PO (12:26)
[2017-08-16] MEDS: [UNRECOGNIZED DRUG - OTHER] TOP SCH (13:19)
[2017-08-16] MEDS: RIVASTIGMINE TOP SCH (13:19)
[2017-08-16] MEDS ORDERED: METOPROLOL TARTRATE 25 MG TABLET GT SCH (14:00)
[2017-08-16] MEDS ORDERED: CRAN450T9 GT (14:50)
[2017-08-16] MEDS: BLOOD SUGAR DIAGNOSTIC 1 EACH STRIP VI SCH ×3 (15:08→23:26)
--- NOTE | 2017-08-16 15:34 | NUR ---
Dr. Briones here to see pt. Full report given. New orders received.
[2017-08-16] MEDS ORDERED: BLOOD SUGAR DIAGNOSTIC 1 EACH STRIP VI SCH (18:00)
--- NOTE | 2017-08-16 19:30 | NUR ---
mathew BROWNoptical engineering manager tel # [phone],transfer is denied not a candidate for transfer not a candidate for intervention .
--- NOTE | 2017-08-16 20:00 | NUR ---
patient in bed JOSE status . awake ,non verbal ,with trach Shiley #4 with oxygen at 4liters/ min hob up saturation 96 to 98 % rr 20 to 25.hob up ,Cortés catheter to bedside drain and peg clamp . patient now with diet mechanical soft . patient daughter and son at bedside ,spoked to patients son about patient condition and medications .continue nursing care .
--- NOTE | 2017-08-16 20:34 | NUR ---
dr:dolly ALVAREZ came and explained to patient, daughter and son at bedside not a candidate for pace maker at this time and will check TSH and T4 low . PER MD bp is wnl.HR 48 sinus bradycardia ,will continue to observed.
[2017-08-16] MEDS: AMOXICILLIN-CLAVUL 875-125MG TABLET GT SCH (21:00)
[2017-08-16] MEDS ORDERED: [UNRECOGNIZED DRUG - OTHER] GT SCH (21:00)
[2017-08-16] MEDS ORDERED: INSULIN DETEMIR 300 UNIT/3 ML CARTRIDGE SQ SCH (21:00)
[2017-08-16] MEDS: BACLOFEN 10 MG TABLET GT SCH (21:01)
[2017-08-16] MEDS: ATORVASTATIN 40 MG TABLET GT SCH (21:01)
[2017-08-16] MEDS: DULOXETINE 20 MG CAPSULE.DR PO SCH (21:02)
[2017-08-16] MEDS: THIAMINE HCL 100 MG TABLET GT SCH (21:02)
[2017-08-16] MEDS: RIVAROXABAN 15 MG TABLET GT SCH (21:03)
[2017-08-16] MEDS: [UNRECOGNIZED DRUG - OTHER] PO SCH (21:05)
[2017-08-16] MEDS: RASAGILINE PO SCH (21:05)
[2017-08-16] MEDS: INSULIN GLARGINE,HUM 300 UNITS/3 ML CARTRIDGE SQ SCH (21:47)
[2017-08-16] MEDS ORDERED: MISCELLANEOUS MED SQ SCH (22:45)
[2017-08-16] MEDS ORDERED: MISCELLANEOUS MED XX PRN (23:00)
--- NOTE | 2017-08-16 23:00 | NUR ---
domingoeo medication subcutaneous requested by son and claimed she gets every night new medication order ,provided by family not given after pharmacy hours . it has to be checked by a pharmacist called after hours pharmacy cannot be given needs pharmacist to checked on the medication . .
[2017-08-16] MEDS: BOOST GLUCOSE CONTROL 237 ML LIQUID (VANILLA) PO SCH (23:19)
--- NOTE | 2017-08-17 00:15 | NUR ---
noted patient moaning and very restless /agitated kicking/waving left leg all around and shaking/waving the left arm hand ,given prn Tylenol via the peg .
[2017-08-17] MEDS: ACETAMINOPHEN 650 MG/20.3 ML LIQUID UDC GT PRN ×2 (00:25→08:51)
[2017-08-17 01:40] VITALS: BP 93/65
[2017-08-17] MEDS: CEFEPIME HCL 1 G in IV DEXTROSE 5% 50 ML IV SCH ×2 (02:19→13:44)
[2017-08-17 03:16] VITALS: BP 159/57
[2017-08-17] MEDS: ENTACAPONE 200 MG TABLET GT SCH ×5 (03:25→20:28)
[2017-08-17] MEDS: CARBIDOPA/LEVODOPA 25-250MG TABLET GT SCH ×5 (03:25→20:28)
[2017-08-17] MEDS: LEVOTHYROXINE SODIUM 75 MCG TABLET GT SCH (05:05)
[2017-08-17] MEDS: BLOOD SUGAR DIAGNOSTIC 1 EACH STRIP VI SCH ×3 (05:42→17:38)
[2017-08-17 05:55] LABS: BASOPHILS % (AUTO) 0.6 % (0.0-2.0); EOSINOPHILS % (AUTO) 0.7 % (0.0-7.0); HEMOGLOBIN 11.1 g/dL (10.9-14.3); LYMPHOCYTES # (AUTO) 1.3 K/uL (20.0-40.0); LYMPHOCYTES % (AUTO) 17.9 % (20.5-51.5); MEAN CORPUSCULAR HGB CONC 34 g/dL (32.3-35.6); MEAN CORPUSCULAR VOLUME 91.8 fL (75.5-95.3); MONOCYTES # (AUTO) 0.9 K/uL (2.0-10.0); MONOCYTES % (AUTO) 12.2 % (0.0-11.0); NEUTROPHILS % (AUTO) 68.6 % (38.5-71.5); PLATELET COUNT (AUTO) 174 K/uL (179-408); RED BLOOD CELL COUNT(AUTO) 3.59 MIL/uL (3.63-4.92); WHITE BLOOD COUNT (AUTO) 7.3 K/uL (3.8-11.8)
[2017-08-17 06:36] LABS: THYROID STIMULATING HORMONE 1.665 mIU/mL (0.358-3.740)
[2017-08-17 06:40] LABS: ALANINE AMINOTRANSFERASE 17 U/L (14-59); ALKALINE PHOSPHATASE 77 U/L (50-136); ASPARTATE AMINOTRANSFERASE 18 U/L (15-37); BILIRUBIN,TOTAL 0.5 mg/dL (0.2-1.0); CARBON DIOXIDE 22 mmol/L (21-32); CHLORIDE 107 mmol/L (98-107); CHOLESTEROL 109 mg/dL (<200); CREATININE 0.8 mg/dL (0.6-1.3); GLUCOSE 140 mg/dL (74-106); HDL CHOLESTEROL 44 mg/dL (40-60); PHOSPHOROUS 4.2 mg/dL (2.5-4.9); POTASSIUM 4.1 mmol/L (3.5-5.1); TRIGLYCERIDES 90 MG/DL (30-150); UREA NITROGEN, BLOOD 27 mg/dL (7-18)
[2017-08-17] MEDS: MORPHINE SULFATE 2 MG/1 ML DISP.SYRIN IV PRN (07:00)
--- NOTE | 2017-08-17 07:04 | NUR ---
patient very restless and very agitated moans and groans ,kicking using left leg and hitting using the left hand given prn morphine continue to monitor levels of comfort .
[2017-08-17] MEDS ORDERED: PANTOPRAZOLE ORAL SUSPENSION 40 MG SUSPDR.PKT GT SCH (07:30)
[2017-08-17 08:00] VITALS: BP 127/86
[2017-08-17] MEDS: MODAFINIL 100 MG TABLET GT SCH (08:14)
[2017-08-17] MEDS: MIRALAX 17 GM POWD.PACK GT SCH (08:14)
[2017-08-17] MEDS: HYDROCODONE/APAP 5-325MG TABLET PO PRN (08:15)
[2017-08-17] MEDS: ACIDOPHILUS/BULGARICUS CHEW TAB GT SCH ×2 (08:15→20:39)
[2017-08-17] MEDS: DOCUSATE SODIUM 100 MG/10 ML LIQUID UDC GT SCH ×2 (08:15→20:38)
[2017-08-17] MEDS: LEVETIRACETAM 500 MG/5 ML LIQUID UDC GT SCH ×2 (08:15→20:30)
[2017-08-17] MEDS: MEMANTINE HCL 10 MG TABLET GT SCH ×2 (08:15→16:10)
[2017-08-17] MEDS: [UNRECOGNIZED DRUG - OTHER] TOP SCH (08:16)
[2017-08-17] MEDS: RIVASTIGMINE TOP SCH (08:16)
[2017-08-17] MEDS: AMOXICILLIN-CLAVUL 875-125MG TABLET GT SCH ×2 (08:16→20:29)
[2017-08-17] MEDS: BOOST GLUCOSE CONTROL 237 ML LIQUID (VANILLA) PO SCH ×3 (08:17→20:41)
[2017-08-17] MEDS: BETHANECHOL CHLORIDE 25 MG TABLET GT SCH ×3 (08:17→16:09)
--- NOTE | 2017-08-17 10:09 | NUR ---
Call made to imaging aide regarding elevated troponin levels. Awaiting return call.
[2017-08-17 12:00] VITALS: BP 143/68
[2017-08-17] MEDS: INSULIN REGULAR, HUMAN 300 UNIT/3 ML VIAL SQ PRN ×2 (12:34→17:41)
--- NOTE | 2017-08-17 15:34 | NUR ---
Dr. Briones here to see pt. Full report given. aware of pt's high blood pressure. New orders received.
[2017-08-17 16:00] VITALS: BP 118/61
[2017-08-17] MEDS: LOSARTAN POTASSIUM 25 MG TABLET PO SCH (16:05)
--- NOTE | 2017-08-17 16:20 | NUR ---
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 NO SIGNIFICANT WT CHANGES WITHIN 30, 90, AND 180 DAYS. Current Diet Order/Nutrition Support [facility] SOFT/CCHO 60 GM Patient /S.O Not Indicated Pertinent Medications MAGNESIUM OXIDE, VITAMIN D, CALCIUM CITRATE, PEPCID, SSI, MVI, MIRALAX, SYNTHROID, LOPRESSOR, FLORANEX, COLACE, LIPITOR, INSULIN, VITAMIN B1 DNI- SYNTHROID - ADMINISTER 1 HR BEFORE OR AFTER MEALS Pertinent Labs 07/31 poc 138(H) Height (Feet) 5 feet Patient Height 60 in Current Weight 139 lbs Body Mass Index (BMI) 27.2 Recent Weight Change Yes Weight Status Appropriate Gastrointestinal Symptoms None Difficult in: Chewing Swallowing Food Allergies No Cultural/Ethnic/Oriental Orthodox Belief MORMONISM Usual diet at home tf Skin Integrity/Comment: left groin excoriation Current %PO Good (75-100%) BEE in Kcals: Using Current wt Calories/Kcals/Kg 25-30 Kcals Calculated 0658-1827 Protein: Using Current wt: Protein g/k.9-1.1 Protein Calculated 50-62 Fluid: ml [id number] Nutrition Problem #1 ALTERED NUTRITION RELATED LABS Signs/Symptoms #1 REFER TO LAB Etiology #1 MODERATE TO POOR BLOOD GLUCOSE Comments TOLERATING DIET Expected Outcomes/Goals 1)MAINTAIN 75-100% OF PO INTAKE DURING HOSPITAL STAY 2)NO SIGNIFICANT WT CHANGES DURING HOSPITAL STAY 3)IMPROVED BG CONTROL Addendum: 08/17/17 at [address] Amended: Links added.
[2017-08-17 20:00] VITALS: BP 159/76
[2017-08-17] MEDS: BACLOFEN 10 MG TABLET GT SCH (20:33)
[2017-08-17] MEDS: RIVAROXABAN 15 MG TABLET GT SCH (20:34)
[2017-08-17] MEDS: [UNRECOGNIZED DRUG - OTHER] PO SCH (20:35)
[2017-08-17] MEDS: RASAGILINE PO SCH (20:35)
[2017-08-17] MEDS: ATORVASTATIN 40 MG TABLET GT SCH (20:39)
[2017-08-17] MEDS: THIAMINE HCL 100 MG TABLET GT SCH (20:39)
[2017-08-17] MEDS: DULOXETINE 20 MG CAPSULE.DR PO SCH (20:41)
[2017-08-17] MEDS: MULTIVIT, IRON, MIN NO. 8, FA TABLET PO SCH (20:42)
[2017-08-17] MEDS: FORTEO 20 MCG SQ SCH (20:42)
[2017-08-17] MEDS: INSULIN GLARGINE,HUM 300 UNITS/3 ML CARTRIDGE SQ SCH (20:43)
[2017-08-18 00:01] VITALS: BP 126/72
[2017-08-18] MEDS: BLOOD SUGAR DIAGNOSTIC 1 EACH STRIP VI SCH ×5 (00:20→23:35)
[2017-08-18] MEDS: INSULIN REGULAR, HUMAN 300 UNIT/3 ML VIAL SQ PRN ×5 (00:36→23:36)
[2017-08-18] MEDS: CARBIDOPA/LEVODOPA 25-250MG TABLET GT SCH ×7 (00:37→23:35)
[2017-08-18] MEDS: ENTACAPONE 200 MG TABLET GT SCH ×7 (00:37→23:35)
[2017-08-18] MEDS: CEFEPIME HCL 1 G in IV DEXTROSE 5% 50 ML IV SCH ×2 (01:53→14:40)
[2017-08-18 04:00] VITALS: BP 118/90
[2017-08-18] MEDS: LEVOTHYROXINE SODIUM 75 MCG TABLET GT SCH (05:09)
[2017-08-18 05:19] LABS: BASOPHILS % (AUTO) 0.4 % (0.0-2.0); EOSINOPHILS # (AUTO) 0.1 K/uL (0.0-0.7); EOSINOPHILS % (AUTO) 1.2 % (0.0-7.0); HEMATOCRIT 32.1 % (31.2-41.9); HEMOGLOBIN 10.7 g/dL (10.9-14.3); LYMPHOCYTES # (AUTO) 1.3 K/uL (20.0-40.0); LYMPHOCYTES % (AUTO) 15.9 % (20.5-51.5); MEAN CORPUSCULAR HEMOGLOBIN 30.4 uug (24.7-32.8); MEAN CORPUSCULAR HGB CONC 34 g/dL (32.3-35.6); MEAN CORPUSCULAR VOLUME 90.7 fL (75.5-95.3); MONOCYTES # (AUTO) 1.2 K/uL (2.0-10.0); MONOCYTES % (AUTO) 15.5 % (0.0-11.0); NEUTROPHILS # (AUTO) 5.3 K/uL (1.8-8.9); PLATELET COUNT (AUTO) 177 K/uL (179-408); RED BLOOD CELL COUNT(AUTO) 3.54 MIL/uL (3.63-4.92); WHITE BLOOD COUNT (AUTO) 7.9 K/uL (3.8-11.8)
[2017-08-18 05:38] LABS: ALANINE AMINOTRANSFERASE 17 U/L (14-59); ALKALINE PHOSPHATASE 72 U/L (50-136); ASPARTATE AMINOTRANSFERASE 18 U/L (15-37); BILIRUBIN,TOTAL 0.6 mg/dL (0.2-1.0); CARBON DIOXIDE 27 mmol/L (21-32); CHLORIDE 107 mmol/L (98-107); CREATININE 0.8 mg/dL (0.6-1.3); GLUCOSE 179 mg/dL (74-106); PHOSPHOROUS 3.4 mg/dL (2.5-4.9); POTASSIUM 4.2 mmol/L (3.5-5.1); TOTAL PROTEIN, SERUM 7.9 g/dL (6.4-8.2); UREA NITROGEN, BLOOD 33 mg/dL (7-18)
[2017-08-18 06:20] LABS: EOSINOPHILS % (MANUAL) 2 % (0-8); LYMPHOCYTES % (MANUAL) 17 % (20-40); MONOCYTES % (MANUAL) 11 % (2-10); NEUTROPHILS % (MANUAL) 70 % (42-75)
[2017-08-18] MEDS: HYDROCODONE/APAP 5-325MG TABLET PO PRN (07:48)
[2017-08-18] MEDS: Z GUARD REMEDY PASTE 57 GM TUBE TOP PRN (07:49)
[2017-08-18 08:00] VITALS: BP 90/52
--- NOTE | 2017-08-18 08:00 | NUR ---
Pt.in bed A/O none verbal,no s/s of distress or pain noted.
[2017-08-18] MEDS: DOCUSATE SODIUM 100 MG/10 ML LIQUID UDC GT SCH ×2 (08:04→20:36)
[2017-08-18] MEDS: MIRALAX 17 GM POWD.PACK GT SCH (08:04)
[2017-08-18] MEDS: AMOXICILLIN-CLAVUL 875-125MG TABLET GT SCH ×2 (08:05→20:36)
[2017-08-18] MEDS: BETHANECHOL CHLORIDE 25 MG TABLET GT SCH ×3 (08:05→16:40)
[2017-08-18] MEDS: LEVETIRACETAM 500 MG/5 ML LIQUID UDC GT SCH ×2 (08:05→20:36)
[2017-08-18] MEDS: MEMANTINE HCL 10 MG TABLET GT SCH ×2 (08:05→16:40)
[2017-08-18] MEDS: ACIDOPHILUS/BULGARICUS CHEW TAB GT SCH ×2 (08:05→20:37)
[2017-08-18] MEDS: MODAFINIL 100 MG TABLET GT SCH (08:05)
[2017-08-18] MEDS: RIVASTIGMINE TOP SCH (08:06)
[2017-08-18] MEDS: LOSARTAN POTASSIUM 25 MG TABLET PO SCH (08:06)
[2017-08-18] MEDS: [UNRECOGNIZED DRUG - OTHER] TOP SCH (08:06)
[2017-08-18] MEDS: BOOST GLUCOSE CONTROL 237 ML LIQUID (VANILLA) PO SCH ×3 (08:08→21:00)
--- NOTE | 2017-08-18 11:40 | NUR ---
Pt.son at bedside,updated with pt.condition and plan of care.
[2017-08-18 12:00] VITALS: BP 113/83
[2017-08-18] MEDS: ACETAMINOPHEN 650 MG/20.3 ML LIQUID UDC GT PRN (12:09)
[2017-08-18] MEDS: MORPHINE SULFATE 2 MG/1 ML DISP.SYRIN IV PRN (13:19)
--- NOTE | 2017-08-18 13:20 | NUR ---
Pt. very restless and kicking using left arm & leg and hitting prn morphine given continue to monitor levels of comfort .
--- NOTE | 2017-08-18 14:45 | NUR ---
Pt.was seen by JUAN DE LEON.
[2017-08-18 16:00] VITALS: BP 120/74
--- NOTE | 2017-08-18 17:40 | NUR ---
Pt.was seen by ,no orders .
--- NOTE | 2017-08-18 19:40 | NUR ---
PT TRANSFERRED WITH YESSY RN FROM CCU-3 TO ROOM 209 ON 6LPM VIA TRACH MASK, WITHOUT INCIDENT. PT O2 SAT 96%, NO RESP. DISTRESS NOTED. PT PLACED BACK ON COOL AEROSOL 6LPM 28% FIO2 VIA TRACH MASK.
[2017-08-18 20:00] VITALS: BP 128/53
[2017-08-18] MEDS: FORTEO 20 MCG SQ SCH (20:36)
[2017-08-18] MEDS: ATORVASTATIN 40 MG TABLET GT SCH (20:36)
[2017-08-18] MEDS: BACLOFEN 10 MG TABLET GT SCH (20:36)
[2017-08-18] MEDS: DULOXETINE 20 MG CAPSULE.DR PO SCH (20:37)
[2017-08-18] MEDS: THIAMINE HCL 100 MG TABLET GT SCH (20:37)
[2017-08-18] MEDS: INSULIN GLARGINE,HUM 300 UNITS/3 ML CARTRIDGE SQ SCH (20:58)
[2017-08-18] MEDS: [UNRECOGNIZED DRUG - OTHER] PO SCH (21:01)
[2017-08-18] MEDS: RASAGILINE PO SCH (21:01)
[2017-08-18] MEDS: RIVAROXABAN 15 MG TABLET GT SCH (21:02)
[2017-08-19] VITALS: BP 103/52
[2017-08-19] MEDS: CEFEPIME HCL 1 G in IV DEXTROSE 5% 50 ML IV SCH ×2 (02:00→14:00)
[2017-08-19] MEDS: CARBIDOPA/LEVODOPA 25-250MG TABLET GT SCH ×6 (03:36→23:34)
[2017-08-19] MEDS: ENTACAPONE 200 MG TABLET GT SCH ×6 (03:36→23:34)
[2017-08-19 04:00] VITALS: BP 151/61
[2017-08-19] MEDS: LEVOTHYROXINE SODIUM 75 MCG TABLET GT SCH (05:27)
[2017-08-19] MEDS: BLOOD SUGAR DIAGNOSTIC 1 EACH STRIP VI SCH ×4 (06:00→23:42)
[2017-08-19] MEDS: INSULIN REGULAR, HUMAN 300 UNIT/3 ML VIAL SQ PRN ×4 (06:07→23:43)
[2017-08-19 08:00] VITALS: BP 160/72
--- NOTE | 2017-08-19 08:00 | NUR ---
SR ON MONITOR, AWAKE ALERT AND FOLLOWS SIMPLE COMMAND, ON AEROSOL AT 6L NC SATURATING 97% NO SS OF DISTRESS. CONTINUE JOSE OBSERVATION
[2017-08-19] MEDS: BETHANECHOL CHLORIDE 25 MG TABLET GT SCH ×3 (08:06→16:20)
[2017-08-19] MEDS: DOCUSATE SODIUM 100 MG/10 ML LIQUID UDC GT SCH ×2 (08:07→20:34)
[2017-08-19] MEDS: LOSARTAN POTASSIUM 25 MG TABLET PO SCH (08:07)
[2017-08-19] MEDS: LEVETIRACETAM 500 MG/5 ML LIQUID UDC GT SCH ×2 (08:07→20:34)
[2017-08-19] MEDS: MEMANTINE HCL 10 MG TABLET GT SCH ×2 (08:07→16:20)
[2017-08-19] MEDS: MODAFINIL 100 MG TABLET GT SCH (08:07)
[2017-08-19] MEDS: ACIDOPHILUS/BULGARICUS CHEW TAB GT SCH ×2 (08:07→20:33)
[2017-08-19] MEDS: MIRALAX 17 GM POWD.PACK GT SCH (08:08)
[2017-08-19] MEDS: BOOST GLUCOSE CONTROL 237 ML LIQUID (VANILLA) PO SCH ×3 (08:08→21:15)
[2017-08-19] MEDS: ACETAMINOPHEN 650 MG/20.3 ML LIQUID UDC GT PRN (08:08)
[2017-08-19] MEDS: [UNRECOGNIZED DRUG - OTHER] TOP SCH (08:09)
[2017-08-19] MEDS: RIVASTIGMINE TOP SCH (08:09)
[2017-08-19] MEDS: Z GUARD REMEDY PASTE 57 GM TUBE TOP PRN (08:10)
--- NOTE | 2017-08-19 11:20 | NUR ---
SEEN BY ACNP SAID OK FOR DC BACK TO SA AND CONTINUE [facility] FOR FEW MORE DAYS. PATIENT AFEBRILE, NO SS OF DISTRESS OR SOB
[2017-08-19] MEDS ORDERED: MORPHINE SULFATE 4 MG/1 ML DISP.SYRIN IV PRN (11:45)
[2017-08-19 11:48] VITALS: BP 116/76
--- NOTE | 2017-08-19 13:30 | NUR ---
NO ACUTE CHANGE, SON AT BEDSIDE VERY SUPPORTIVE WITH CARE
[2017-08-19 15:21] VITALS: BP 103/47
--- NOTE | 2017-08-19 16:30 | NUR ---
SEEN BY DR SIU SPOKE WITH SON REGARDING DC PLANNING SEE NOTES
[2017-08-19 19:30] VITALS: BP 121/42
--- NOTE | 2017-08-19 19:30 | NUR ---
nsg: pt received awake, non verbal, trached. no acute distress noted. Tele, SB with HR of 55. GT clamped. f/c draining karina colored urine via gravity. dvt pumps in place. HOB elevated 35 degrees. son at the bedside.
[2017-08-19] MEDS: DULOXETINE 20 MG CAPSULE.DR PO SCH (20:32)
[2017-08-19] MEDS: ATORVASTATIN 40 MG TABLET GT SCH (20:32)
[2017-08-19] MEDS: MULTIVIT, IRON, MIN NO. 8, FA TABLET PO SCH (20:32)
[2017-08-19] MEDS: BACLOFEN 10 MG TABLET GT SCH (20:33)
[2017-08-19] MEDS: RIVAROXABAN 15 MG TABLET GT SCH (20:33)
[2017-08-19] MEDS: THIAMINE HCL 100 MG TABLET GT SCH (20:33)
[2017-08-19] MEDS: [UNRECOGNIZED DRUG - OTHER] PO SCH (20:34)
[2017-08-19] MEDS: RASAGILINE PO SCH (20:34)
[2017-08-19] MEDS: FORTEO 20 MCG SQ SCH (20:34)
[2017-08-19] MEDS: INSULIN GLARGINE,HUM 300 UNITS/3 ML CARTRIDGE SQ SCH (21:17)
[2017-08-20 00:35] VITALS: BP 130/40
[2017-08-20] MEDS: CEFEPIME HCL 1 G in IV DEXTROSE 5% 50 ML IV SCH ×2 (02:24→13:54)
[2017-08-20 04:00] VITALS: BP 134/52
[2017-08-20] MEDS: ENTACAPONE 200 MG TABLET GT SCH ×4 (05:23→16:19)
[2017-08-20] MEDS: LEVOTHYROXINE SODIUM 75 MCG TABLET GT SCH (05:24)
[2017-08-20] MEDS: CARBIDOPA/LEVODOPA 25-250MG TABLET GT SCH ×4 (05:24→16:19)
[2017-08-20] MEDS: INSULIN REGULAR, HUMAN 300 UNIT/3 ML VIAL SQ PRN ×2 (05:44→11:48)
[2017-08-20] MEDS: BLOOD SUGAR DIAGNOSTIC 1 EACH STRIP VI SCH ×2 (05:44→11:46)
--- NOTE | 2017-08-20 05:49 | NUR ---
nsg: all needs attended. no acute distress noted. tele, SB with hr
--- NOTE | 2017-08-20 05:50 | NUR ---
nsg: all needs attended. no acute distress noted. tele, SB with HR of 48. kept clean and dry. gave all meds via gtube. cont with treatment plan.
[2017-08-20 06:28] LABS: CARBON DIOXIDE 26 mmol/L (21-32); CHLORIDE 111 mmol/L (98-107); GLUCOSE 184 mg/dL (74-106); MAGNESIUM 2.1 mg/dL (1.8-2.4); PHOSPHOROUS 3.6 mg/dL (2.5-4.9); POTASSIUM 4.4 mmol/L (3.5-5.1); UREA NITROGEN, BLOOD 48 mg/dL (7-18)
[2017-08-20 06:46] LABS: BASOPHILS % (AUTO) 0.3 % (0.0-2.0); EOSINOPHILS # (AUTO) 0.1 K/uL (0.0-0.7); EOSINOPHILS % (AUTO) 1.8 % (0.0-7.0); LYMPHOCYTES # (AUTO) 1.8 K/uL (20.0-40.0); LYMPHOCYTES % (AUTO) 22.1 % (20.5-51.5); MEAN CORPUSCULAR HEMOGLOBIN 30.7 uug (24.7-32.8); MEAN CORPUSCULAR HGB CONC 33 g/dL (32.3-35.6); MEAN CORPUSCULAR VOLUME 91.8 fL (75.5-95.3); MONOCYTES # (AUTO) 1.1 K/uL (2.0-10.0); MONOCYTES % (AUTO) 13.8 % (0.0-11.0); PLATELET COUNT (AUTO) 194 K/uL (179-408); RED BLOOD CELL COUNT(AUTO) 3.59 MIL/uL (3.63-4.92)
[2017-08-20 07:57] VITALS: BP 112/53
--- NOTE | 2017-08-20 08:00 | NUR ---
PATIENT RESTLESS TRYING TO PULL OUT HEART MONITOR AND C/O PAIN GENERALIZED WILL MEDICATE WITH PRN MEDS
[2017-08-20] MEDS: MIRALAX 17 GM POWD.PACK GT SCH (08:15)
[2017-08-20] MEDS: LEVETIRACETAM 500 MG/5 ML LIQUID UDC GT SCH (08:16)
[2017-08-20] MEDS: LOSARTAN POTASSIUM 25 MG TABLET PO SCH (08:16)
[2017-08-20] MEDS: DOCUSATE SODIUM 100 MG/10 ML LIQUID UDC GT SCH (08:16)
[2017-08-20] MEDS: HYDROCODONE/APAP 5-325MG TABLET PO PRN (08:18)
[2017-08-20] MEDS: BETHANECHOL CHLORIDE 25 MG TABLET GT SCH ×3 (08:18→16:21)
[2017-08-20] MEDS: ACIDOPHILUS/BULGARICUS CHEW TAB GT SCH (08:19)
[2017-08-20] MEDS: MODAFINIL 100 MG TABLET GT SCH (08:19)
[2017-08-20] MEDS: MEMANTINE HCL 10 MG TABLET GT SCH ×2 (08:19→16:21)
[2017-08-20] MEDS: BOOST GLUCOSE CONTROL 237 ML LIQUID (VANILLA) PO SCH ×2 (08:20→16:22)
[2017-08-20] MEDS: RIVASTIGMINE TOP SCH (08:22)
[2017-08-20] MEDS: [UNRECOGNIZED DRUG - OTHER] TOP SCH (08:22)
[2017-08-20] MEDS: Z GUARD REMEDY PASTE 57 GM TUBE TOP PRN (08:23)
[2017-08-20] MEDS: AMANTADINE HCL 100 MG CAPSULE GT SCH ×2 (08:54→16:21)
[2017-08-20 11:50] VITALS: BP 136/56
--- NOTE | 2017-08-20 12:33 | NUR ---
CONTINUE JOSE OBSERVATION SB ON MONITOR, NO ACUTE CHANGE
--- NOTE | 2017-08-20 15:00 | NUR ---
SEEN BY DR SIU WITH ORDER FOR TRANSFER BACK TO SA UNIT, SET OFF BLOCKER AWARE AND NOTIFIED SON ALI
[2017-08-20] MEDS ORDERED: CEFE1FRO IV (15:08)
[2017-08-20 15:43] VITALS: BP 151/61
--- NOTE | 2017-08-20 17:10 | NUR ---
DISCHARGED TO SA UNIT VIA BED WITH RESPIRATORY STABLE.
== END 2017-08-20 17:00 | DRG 308 ==
LOC: ER 22:20 → TELE-TD 08-16 01:00 → CCU 08-16 06:55 → TELE-TD 08-18 19:45
PROVIDERS: ADMIT Internal Medicine; ATTEND Internal Medicine
DX: I49.5 Sick sinus syndrome (principal); I50.33 Acute on chronic diastolic (congestive) heart failure; G93.1 Anoxic brain damage, not elsewhere classified; Z93.0 Tracheostomy status; J96.11 Chronic respiratory failure with hypoxia; I69.351 Hemiplegia and hemiparesis following cerebral infarction affecting right dominant side; I48.92 Unspecified atrial flutter; D68.59 Other primary thrombophilia; N39.0 Urinary tract infection, site not specified; I13.0 Hypertensive heart and chronic kidney disease with heart failure and stage 1 through stage 4 chronic kidney disease, or unspecified chronic kidney disease; E11.22 Type 2 diabetes mellitus with diabetic chronic kidney disease; I48.0 Paroxysmal atrial fibrillation; N31.9 Neuromuscular dysfunction of bladder, unspecified; Z86.74 Personal history of sudden cardiac arrest; R00.1 Bradycardia, unspecified; I12.9 Hypertensive chronic kidney disease with stage 1 through stage 4 chronic kidney disease, or unspecified chronic kidney disease; Z74.01 Bed confinement status; Z79.01 Long term (current) use of anticoagulants; Z79.4 Long term (current) use of insulin; Z93.1 Gastrostomy status; I25.10 Atherosclerotic heart disease of native coronary artery without angina pectoris; Z95.1 Presence of aortocoronary bypass graft; Z86.718 Personal history of other venous thrombosis and embolism; L30.9 Dermatitis, unspecified; B96.5 Pseudomonas (aeruginosa) (mallei) (pseudomallei) as the cause of diseases classified elsewhere; Z16.24 Resistance to multiple antibiotics; Z22.39 Carrier of other specified bacterial diseases; M81.0 Age-related osteoporosis without current pathological fracture; I69.320 Aphasia following cerebral infarction; I69.919 Unspecified symptoms and signs involving cognitive functions following unspecified cerebrovascular disease; F01.50 Vascular dementia, unspecified severity, without behavioral disturbance, psychotic disturbance, mood disturbance, and anxiety; G31.83 Neurocognitive disorder with Lewy bodies; F02.80 Dementia in other diseases classified elsewhere, unspecified severity, without behavioral disturbance, psychotic disturbance, mood disturbance, and anxiety; N18.9 Chronic kidney disease, unspecified; G89.29 Other chronic pain; M84.68XS Pathological fracture in other disease, other site, sequela; I08.3 Combined rheumatic disorders of mitral, aortic and tricuspid valves; I27.20 Pulmonary hypertension, unspecified; M19.90 Unspecified osteoarthritis, unspecified site; R13.10 Dysphagia, unspecified; Z79.899 Other long term (current) drug therapy; Z87.01 Personal history of pneumonia (recurrent); Z87.440 Personal history of urinary (tract) infections; I25.2 Old myocardial infarction; E78.5 Hyperlipidemia, unspecified; E03.9 Hypothyroidism, unspecified; I45.10 Unspecified right bundle-branch block; I44.0 Atrioventricular block, first degree; I48.2 Chronic atrial fibrillation; R94.8 Abnormal results of function studies of other organs and systems
CPT/HCPCS: 36415; 70030-TC; 71045; 83605; 83735; 84100; 84443; 85025; 85730; 87040; 87077; 87086; 93005; 93307; A4217; A4663; J0692; J0696; J1815; J2270; J7050; J7060

== ENCOUNTER 2017-10-21 14:04 | Inpatient (IN) | payer MEDICARE, MEDICAID ==
[~2017-10-21] VITALS: Ht 152.4 cm; Wt 51.3 kg
[~2017-10-21 14:04] MED LIST changes: +AMAN100T GT; +CALC-245 PO; +CEFE1FRO IV; +CHOL10002 PO; +CRAN450T9 GT; +FAMO20TA8 GT; +MAGN400T30 PO; -Metoprolol Tartrate GT; +NUT.237L70 PO; -Ondansetron Hcl/Pf IV; -PANT40SU2 GT
--- NOTE | 2017-10-21 14:05 | NUR ---
Dr. Mandujano at bedside to examine patient. Pt's son at bedside.
--- NOTE | 2017-10-21 14:05 | NUR ---
Pt. received from [place] [facility]-acute, wilma #4 uncuff to SM. 7 liters. PEG clamped. vitals within normal limits. HR. sinus rhythm in the 90's. SBP 129/72 saturation of 97.99%. RR. 21. Addendum: 10/21/17 at 1546 by GMATEOS HL LFA G-20 as reported.
--- NOTE | 2017-10-21 14:10 | NUR ---
Patient on antibiotics already per md. pt. not a sepsis protocol candidate, patient fluid overload.
[2017-10-21] MEDS ORDERED: FUROSEMIDE 20 MG/2 ML VIAL IV ONE (14:45)
[2017-10-21] MEDS ORDERED: FUROSEMIDE 40 MG/4 ML VIAL ONE (14:49)
[2017-10-21] MEDS ORDERED: DULO20CA GT (15:21)
[2017-10-21] MEDS ORDERED: CHOL20004 GT (15:21)
[2017-10-21] MEDS ORDERED: NUT.237L30 GT (15:21)
[2017-10-21] MEDS ORDERED: IPRA0.2S6 NEB (15:21)
[2017-10-21] MEDS ORDERED: BISA10SU8 RC (15:21)
[2017-10-21] MEDS ORDERED: ACET160S2 GT ×2 (15:21)
[2017-10-21] MEDS ORDERED: ACID1TAB12 GT (15:21)
[2017-10-21] MEDS ORDERED: ENTA200T GT (15:21)
[2017-10-21] MEDS ORDERED: BETH25TA GT (15:21)
[2017-10-21] MEDS ORDERED: FAMO-132 GT (15:21)
[2017-10-21] MEDS ORDERED: INSU100V10 SQ (15:21)
[2017-10-21] MEDS ORDERED: CARB1TAB24 GT (15:21)
[2017-10-21] MEDS ORDERED: LEVE500S9 GT (15:21)
[2017-10-21] MEDS ORDERED: DOCU100C36 GT (15:21)
[2017-10-21] MEDS ORDERED: ALBU2.5V13 IH (15:21)
[2017-10-21] MEDS ORDERED: ASCO-375 GT (15:21)
[2017-10-21] MEDS ORDERED: BLOO-360 IN (15:21)
[2017-10-21] MEDS ORDERED: DEXT50DI8 IV (15:21)
[2017-10-21] MEDS ORDERED: ZINC57OI3 TP ×2 (15:21)
[2017-10-21] MEDS ORDERED: CALC-245 PO (15:21)
[2017-10-21] MEDS ORDERED: BACL10TA GT (15:21)
[2017-10-21] MEDS ORDERED: TERI2.4P SUBCUT (15:22)
[2017-10-21] MEDS ORDERED: POLY17PO4 GT (15:22)
[2017-10-21] MEDS ORDERED: BIOTINE MM ×2 (15:22)
[2017-10-21] MEDS ORDERED: LEVO75TA7 GT (15:22)
[2017-10-21] MEDS ORDERED: MEMA10TA GT (15:22)
[2017-10-21] MEDS ORDERED: CRAN450T3 GT (15:22)
[2017-10-21] MEDS ORDERED: SIME80TA45 GT (15:22)
[2017-10-21] MEDS ORDERED: VANC750P8 IV (15:22)
[2017-10-21] MEDS ORDERED: THIA100T13 GT (15:22)
[2017-10-21] MEDS ORDERED: RIVA15TA2 PO (15:22)
[2017-10-21] MEDS ORDERED: MERO1PIG IV (15:22)
[2017-10-21] MEDS ORDERED: RASA1TAB PO (15:22)
[2017-10-21] MEDS ORDERED: MODA200T22 GT (15:22)
[2017-10-21] MEDS ORDERED: MAGN250T37 GT (15:22)
[2017-10-21] MEDS ORDERED: MULT1TAB73 GT (15:22)
[2017-10-21] MEDS ORDERED: RIVA1PAT11 TD (15:22)
--- NOTE | 2017-10-21 15:51 | NUR ---
Patient resting comfortably, son at bedside. HR, of 104 A-fib, SBP 129/84, sat of 99% trache mask. 6 liters. Addendum: 10/21/17 at 1600 by RAJWINDER Remains afebrile.
--- NOTE | 2017-10-21 16:08 | NUR ---
Report given to Buddy Del Castillo. all systems covers. all questions answered. patient will be going via own bed. wilma [address] in [address] and clamped.
[2017-10-21 16:39] LABS: BASOPHILS % (AUTO) 0.3 % (0.0-2.0); EOSINOPHILS # (AUTO) 0.1 K/uL (0.0-0.7); EOSINOPHILS % (AUTO) 0.6 % (0.0-7.0); LYMPHOCYTES # (AUTO) 1.5 K/uL (20.0-40.0); LYMPHOCYTES % (AUTO) 18.8 % (20.5-51.5); MEAN CORPUSCULAR HEMOGLOBIN 30.7 uug (24.7-32.8); MEAN CORPUSCULAR HGB CONC 35 g/dL (32.3-35.6); MEAN CORPUSCULAR VOLUME 88.8 fL (75.5-95.3); MONOCYTES # (AUTO) 1.3 K/uL (2.0-10.0); MONOCYTES % (AUTO) 15.7 % (0.0-11.0); NEUTROPHILS # (AUTO) 5.2 K/uL (1.8-8.9); NEUTROPHILS % (AUTO) 64.6 % (38.5-71.5); PLATELET COUNT (AUTO) 278 K/uL (179-408); RED BLOOD CELL COUNT(AUTO) 3.27 MIL/uL (3.63-4.92)
[2017-10-21 16:44] LABS: CARBON DIOXIDE 29 mmol/L (21-32); CHLORIDE 103 mmol/L (98-107); CREATININE 0.7 mg/dL (0.6-1.3); GLUCOSE 123 mg/dL (74-106); POTASSIUM 3.7 mmol/L (3.5-5.1); UREA NITROGEN, BLOOD 20 mg/dL (7-18)
--- NOTE | 2017-10-21 16:45 | NUR ---
Received patient from ER. Patient is admitted to tele under the care of Dr. York. Dx: AFIB RVR, Pulmonary edema. Admission process and care plan initiated. Son at bedside. No belonging list to account for. MD notified for new admission orders.
[2017-10-21 16:53] LABS: ALANINE AMINOTRANSFERASE 24 U/L (14-59); ALKALINE PHOSPHATASE 208 U/L (50-136); ASPARTATE AMINOTRANSFERASE 36 U/L (15-37); BILIRUBIN,TOTAL 0.5 mg/dL (0.2-1.0); MAGNESIUM 2.2 mg/dL (1.8-2.4); PHOSPHOROUS 3.6 mg/dL (2.5-4.9); TOTAL PROTEIN, SERUM 7.8 g/dL (6.4-8.2)
[2017-10-21 16:59] VITALS: BP 142/85
[2017-10-21 17:34] LABS: LYMPHOCYTES % (MANUAL) 19 % (20-40); MONOCYTES % (MANUAL) 12 % (2-10); NEUTROPHILS % (MANUAL) 69 % (42-75)
[2017-10-21] MEDS ORDERED: IPRATROPIUM BROMIDE 0.5 MG/2.5 ML NEBU IH PRN (18:30)
[2017-10-21] MEDS ORDERED: DEXTROSE 50% 50 ML DISP.SYRIN IV PRN (18:30)
[2017-10-21] MEDS ORDERED: SIMETHICONE 80 MG TAB.CHEW GT PRN (18:30)
[2017-10-21] MEDS ORDERED: GLUCERNA SHAKE VANILLA 237 ML CAN GT SCH (18:30)
[2017-10-21] MEDS ORDERED: BISACODYL 10 MG SUPP.RECT RC PRN (18:30)
[2017-10-21] MEDS ORDERED: ALBUTEROL SULFATE 2.5 MG/ 0.5 ML NEBU IH PRN (18:30)
[2017-10-21] MEDS: MEROPENEM 1 G in IV NORMAL SALINE 100 ML IV SCH ×2 (18:40→21:24)
--- NOTE | 2017-10-21 18:55 | NUR ---
Meropenem IV running, no adverse reaction noted. Vanco IV scheduled for 1800 to be given, will endorse to oncoming shift RN.
--- NOTE | 2017-10-21 19:08 | NUR ---
PHARMACY NOTES (VANCOMYCIN DOSING) S: 82 yo female, resident of Sub-acute unit ; ID ordered Vancomycin and Merrem for pneumonia; meds were started in subacute yesterday and now to continue in acute care. O: BUN/SCR 20/0.7 (rounded to scr 1.0); WBC 8.0; TEMP 97.9; DOSING WT 49 .5 KG A/P:will continue vancomycin at 1gm ivpb q32 hr (starting now dose #1); estimated peak of 46 and trough of 17 plan to order level prior to 4th dose of vanco . RX will continue to monitor renal fxn and levels and adjust the dose as necessary.
[2017-10-21] MEDS: VANCOMYCIN IV 1 G in PREMIXED 0 EACH IV SCH (19:23)
--- NOTE | 2017-10-21 20:00 | NUR ---
Received patient awake, anxious, left hand tremors noted. No sign of resp distress, O2 Sat 100% via trach mask 6 L. Clamped G-tube noted, continuos feeding to start in AM per MD order. Son in room & made aware about the feeding schedule. Patient's vital signs WNL.
[2017-10-21 20:05] VITALS: BP 160/79
[2017-10-21] MEDS: ENTACAPONE 200 MG TABLET GT SCH (20:18)
[2017-10-21] MEDS: FUROSEMIDE 20 MG/2 ML VIAL IV SCH (20:18)
[2017-10-21] MEDS: DULOXETINE 20 MG CAPSULE.DR PO SCH (20:18)
[2017-10-21] MEDS: CARBIDOPA/LEVODOPA 25-250MG TABLET GT SCH (20:18)
[2017-10-21] MEDS: BACLOFEN 10 MG TABLET GT SCH (20:18)
[2017-10-21] MEDS: FAMOTIDINE 20 MG TABLET GT SCH (20:19)
[2017-10-21] MEDS: ASCORBIC ACID 500 MG TABLET GT SCH (20:19)
[2017-10-21] MEDS: RIVAROXABAN 15 MG TABLET GT SCH (20:20)
[2017-10-21] MEDS: THIAMINE HCL 100 MG TABLET GT SCH (20:23)
[2017-10-21] MEDS: HYDROGEN PEROXIDE 3% 118 ML BOTTLE TP SCH (20:27)
[2017-10-21] MEDS ORDERED: LEVETIRACETAM GT SCH (21:00)
[2017-10-21] MEDS: DOCUSATE SODIUM 100 MG/10 ML LIQUID UDC GT SCH (21:22)
[2017-10-21] MEDS: ACIDOPHILUS/BULGARICUS CHEW TAB GT SCH (21:22)
[2017-10-21] MEDS: LEVETIRACETAM 500 MG/5 ML LIQUID UDC GT SCH (21:23)
[2017-10-21] MEDS: AMANTADINE HCL 100 MG CAPSULE PO SCH (21:44)
[2017-10-21] MEDS ORDERED: AMANTADINE HCL 100 MG CAPSULE ONE (21:44)
[2017-10-22] VITALS (7 sets, daily range): BP systolic 90–155; BP diastolic 60–90
--- NOTE | 2017-10-22 | NUR ---
Excessive sweating noted, sponge bath & oral care provided. Turned & repositioned kept comfortable. Infiltrated IV noted. Inserted new IV line on her left hand w/ [id number]. Sinus rhythm but still w/ underlying A-fib on the monitor.
[2017-10-22] MEDS: CARBIDOPA/LEVODOPA 25-250MG TABLET GT SCH ×7 (00:36→23:42)
[2017-10-22] MEDS: ENTACAPONE 200 MG TABLET GT SCH ×7 (00:36→23:42)
[2017-10-22] MEDS: CALCIUM CITRA-VITAMIN D 315 MG-250 UNITS TABLET GT SCH ×2 (05:02→16:12)
[2017-10-22] MEDS: MEROPENEM 1 G in IV NORMAL SALINE 100 ML IV SCH ×3 (05:03→21:12)
--- NOTE | 2017-10-22 06:03 | NUR ---
No significant change. HR 89 bpm sinus rhythm on the monitor. Sensitive to touch easily get agitated. No acute resp. distress, kept comfortable.
[2017-10-22 06:21] LABS: BASOPHILS # (AUTO) 0.1 K/uL (0.0-8.0); BASOPHILS % (AUTO) 0.7 % (0.0-2.0); EOSINOPHILS # (AUTO) 0.1 K/uL (0.0-0.7); HEMATOCRIT 32.3 % (31.2-41.9); LYMPHOCYTES # (AUTO) 1.5 K/uL (20.0-40.0); LYMPHOCYTES % (AUTO) 19.5 % (20.5-51.5); MEAN CORPUSCULAR HEMOGLOBIN 30.7 uug (24.7-32.8); MEAN CORPUSCULAR HGB CONC 34 g/dL (32.3-35.6); MEAN CORPUSCULAR VOLUME 89.8 fL (75.5-95.3); MONOCYTES # (AUTO) 1.3 K/uL (2.0-10.0); MONOCYTES % (AUTO) 16.6 % (0.0-11.0); NEUTROPHILS # (AUTO) 4.9 K/uL (1.8-8.9); NEUTROPHILS % (AUTO) 62.2 % (38.5-71.5); PLATELET COUNT (AUTO) 292 K/uL (179-408); WHITE BLOOD COUNT (AUTO) 7.9 K/uL (3.8-11.8)
[2017-10-22] MEDS: GLUCERNA 1.2 1000ML LIQUID GT SCH ×2 (06:21→22:34)
[2017-10-22 06:35] LABS: ALANINE AMINOTRANSFERASE 12 U/L (14-59); ALKALINE PHOSPHATASE 200 U/L (50-136); ASPARTATE AMINOTRANSFERASE 36 U/L (15-37); BILIRUBIN,TOTAL 0.6 mg/dL (0.2-1.0); CARBON DIOXIDE 30 mmol/L (21-32); CHLORIDE 101 mmol/L (98-107); CREATININE 0.8 mg/dL (0.6-1.3); GLUCOSE 153 mg/dL (74-106); MAGNESIUM 1.8 mg/dL (1.8-2.4); PHOSPHOROUS 3.9 mg/dL (2.5-4.9); POTASSIUM 4.1 mmol/L (3.5-5.1); TOTAL PROTEIN, SERUM 8.6 g/dL (6.4-8.2); UREA NITROGEN, BLOOD 20 mg/dL (7-18)
--- NOTE | 2017-10-22 06:50 | NUR ---
Turned & repositioned. Oral care & linen change done. Patient very agitated Tachycardic at this time. Glucerna Tube feeding at 30 ml/hr started. Will continue to monitor.
--- NOTE | 2017-10-22 07:15 | NUR ---
Patient remains tachycardic 160s-[address] Mendoza notified for possible new orders.
--- NOTE | 2017-10-22 07:43 | NUR ---
Patient remains tachycardic HR 170- 180s. Current temp 101.0 F/rectally. Called rapid response for further evaluation. Received orders from Dr. Mendoza. STAT EKG, STAT blood culture was done & D-Dimer was ordered.
[2017-10-22] MEDS: METOPROLOL TARTRATE 5 MG/5 ML VIAL IVP PRN (07:52)
--- NOTE | 2017-10-22 08:00 | NUR ---
Tylenol 650 supp & ice pack applied. Patient calmer at this time. Report given to Mariah BROWN.
[2017-10-22 08:59] LABS: EOSINOPHILS % (MANUAL) 1 % (0-8); MONOCYTES % (MANUAL) 14 % (2-10); NEUTROPHILS % (MANUAL) 64 % (42-75)
[2017-10-22 09:00] LABS: LYMPHOCYTES % (MANUAL) 21 % (20-40)
[2017-10-22] MEDS ORDERED: MULTIVITAMINS 5 ML LIQUID UDC GT SCH (09:00)
[2017-10-22] MEDS ORDERED: Medication Not On Formulary EA (Cholecalciferol (Vitamin D3) (Vitamin D CAPSULE) 2,000 U GT SCH (09:00)
[2017-10-22] MEDS ORDERED: MODAFINIL 200 MG GT SCH (09:00)
[2017-10-22] MEDS ORDERED: DOCUSATE SODIUM 100 MG CAPSULE PO SCH (09:00)
[2017-10-22] MEDS ORDERED: Medication Not On Formulary EA (Acidophilus/Bulgaricus (Floranex Tablet) 1 EACH) GT SCH (09:00)
[2017-10-22] MEDS ORDERED: RIVASTIGMINE 4.6 MG PATCH TD SCH ×2 (09:00→09:21)
[2017-10-22] MEDS: MAGNESIUM OXIDE 250 MG TABLET GT SCH (09:10)
[2017-10-22] MEDS: AMANTADINE HCL 100 MG CAPSULE PO SCH ×2 (09:10→20:35)
[2017-10-22] MEDS: DOCUSATE SODIUM 100 MG/10 ML LIQUID UDC GT SCH ×2 (09:10→20:37)
[2017-10-22] MEDS: LEVETIRACETAM 500 MG/5 ML LIQUID UDC GT SCH ×2 (09:11→20:31)
[2017-10-22] MEDS: MODAFINIL 100 MG TABLET PO SCH (09:11)
[2017-10-22] MEDS: CHOLECALCIFEROL 1,000 UNIT TABLET GT SCH (09:12)
[2017-10-22] MEDS: BETHANECHOL CHLORIDE 25 MG TABLET GT SCH ×3 (09:12→16:09)
[2017-10-22] MEDS: MEMANTINE HCL 10 MG TABLET GT SCH ×2 (09:12→16:10)
[2017-10-22] MEDS: ACIDOPHILUS/BULGARICUS CHEW TAB GT SCH ×2 (09:12→20:37)
[2017-10-22] MEDS: FAMOTIDINE 20 MG TABLET GT SCH ×2 (09:12→20:31)
[2017-10-22] MEDS: MIRALAX 17 GM POWD.PACK GT SCH (09:13)
[2017-10-22] MEDS: FUROSEMIDE 20 MG/2 ML VIAL IV SCH (09:13)
[2017-10-22] MEDS: LEVOTHYROXINE SODIUM 75 MCG TABLET GT SCH (09:20)
[2017-10-22] MEDS: HYDROGEN PEROXIDE 3% 118 ML BOTTLE TP SCH ×2 (09:38→20:37)
--- NOTE | 2017-10-22 12:00 | NUR ---
NO SIGNS AND SYMPTOMS OF DISTRESS. TEMPERATURE 98.4 SEEN BY PROPOSAL ENGINEER. PATIENT TO START ON AMIODARONE VIA GT AND SEE NOTES.
[2017-10-22 12:13] LABS: *BILIRUBIN,URIN NEGATIVE (NEGATIVE); *BLOOD, URINE NEGATIVE (NEGATIVE); *CLARITY,URINE CLEAR (CLEAR); *COLOR,URINE YELLOW (YELLOW); *KETONES,URINE TRACE (NEGATIVE); *PROTEIN,URINE 1+ (NEGATIVE); *UROBILINOGEN,URINE 0.2 E.U./dl (NORMAL); LEUKOCYTE ESTERASE ,URINE NEGATIVE (NEGATIVE); NITRITE, URINE NEGATIVE (NEGATIVE); PH,URINE 6.5 (5.0-8.0); UGLUCOSE NEGATIVE (NEGATIVE)
[2017-10-22 12:20] LABS: BACTERIA,URINE FEW /HPF (NONE SEEN); RBC,URINE 0-3 /HPF (0-3); SQUAMOUS EPITHELIAL CELL,UR FEW /HPF (NONE SEEN)
[2017-10-22] MEDS: RIVASTIGMINE TOP SCH (12:28)
[2017-10-22] MEDS: AMIODARONE HCL 200 MG TABLET PO SCH ×2 (12:46→20:31)
[2017-10-22] MEDS ORDERED: IV NORMAL SALINE 100 ML ONE (12:51)
[2017-10-22] MEDS ORDERED: SWABABLE VALVE TRANSFER SET EA MC ONE (12:51)
[2017-10-22] MEDS ORDERED: BARIUM SULFATE 450 ML ORAL.SUSP ONE (12:51)
[2017-10-22] MEDS ORDERED: IOHEXOL 300MG/ML 100 ML INFUS..BTL ONE (12:51)
--- NOTE | 2017-10-22 14:44 | NUR ---
PHARMACY NOTES (VANCOMYCIN DOSING) S: 82 yo female, resident of Sub-acute unit ; ID ordered Vancomycin and Merrem for pneumonia and UTI; meds were started in subacute and now to continue in acute care. O: BUN/SCR 20/0.7 (rounded to scr 1.0); WBC 8.0; TEMP 97.9; DOSING WT 49 .5 KG A/P:will continue vancomycin at 1gm ivpb q32 hr (second dose tomorrow at 0200); estimated peak of 46 and trough of 17 plan to order level prior to 4th dose of vanco(not ordered yet) . RX will continue to monitor renal fxn and levels and adjust the dose as necessary.
--- NOTE | 2017-10-22 16:34 | NUR ---
PATIENT REMAINS AFEBRILE AND HR SUSTAINING IN AND OUT AFIB SINUS 80-95. SEEN BY ID SEE NOTES. CT ABDOMEN AND PELVIS WITH CONTRAST
[2017-10-22] MEDS ORDERED: LORAZEPAM 2 MG/1 ML VIAL IV STA (17:28)
--- NOTE | 2017-10-22 18:40 | NUR ---
IV LEFT FOREARM DISCONNECTED AND ROUTINE NS FLUSHING DONE FOR CT SCAN ABDOMEN/PELVIS WITH IV CONTRAST. HEPLOCK LEFT ARM PATENT WITH NO SIGNS OF INFILTRATE. TAKEN DOWN TO CT SCAN VIA BED.
--- NOTE | 2017-10-22 19:00 | NUR ---
1854 NOTED LEFT ARM IV SITE GOT INFILTRATED AFTER INFUSING IV CONTRAST IN NUCLEAR MED. LEFT FOREARM ELEVATED AND CLOSELY MONITORED. ENDORSED TO ASSEMBLY MEMBER.
--- NOTE | 2017-10-22 19:15 | NUR ---
SBAR REPORT FROM AM SHIFT,PT'S BACK FROM CT ABD/PELVIS W/CONTRAST IN THE EVENING TODAY,PER AM SHIFT'S REPORT THAT IV SITE'S INFILTRATION AT THAT TIME;ELEVATED LEFT HAND W/2 PILLOWS.NO IV ACCESS AT THIS TIME.STARTED THE NEW IV ACCESS AT LEFT FOREARM FOR IV ANTIBIOTIC MD'S ORDER. PER ASSESSMENT:LEFT ARM AND HAND WAS SWOLLEN,WARM TO TOUCH REDNESS , RADIAL PULSE PRESENT.CONTINUED ELEVATED LEFT ARM W/2 PILLOWS AND APPLIED WARM PACK TO THE SITE .CALLED TO NOTIFY HIM,MD'S AWARE.MARIAH/GRAPHICS INTERN AND PSYCHOLOGICAL EXAMINER ALSO WERE NOTIFIED . PT'S ON BED REST COMFORTABLY.ON O2 VIA COLLAR TRACH @ 9LPM.SUCTION VIA TRAC GOT SMALL AMOUNT OF PRODUCTIVE.MAINTAINED ADEQUATE O2 SATURATION.CLOSELY MONITORING TO PT. GTUBE FEED WAS HELD SINCE 18;00 AND WILL RESUME AT 22:00(PT'S ON FEEDING FOR 20 HOURS/DAY.
[2017-10-22] MEDS: ASCORBIC ACID 500 MG TABLET GT SCH (20:30)
[2017-10-22] MEDS: RIVAROXABAN 15 MG TABLET GT SCH (20:30)
[2017-10-22] MEDS: ACETAMINOPHEN 650 MG/20.3 ML LIQUID UDC GT PRN (20:30)
[2017-10-22] MEDS: AZILECT 1MG TABLET GT SCH (20:31)
[2017-10-22] MEDS: THIAMINE HCL 100 MG TABLET GT SCH (20:31)
[2017-10-22] MEDS: DULOXETINE 20 MG CAPSULE.DR PO SCH (20:31)
[2017-10-22] MEDS: BACLOFEN 10 MG TABLET GT SCH (20:31)
[2017-10-22] MEDS: COD LIVER OIL/ZINC OXIDE OINT 113 GM TUBE TOP SCH (20:37)
--- NOTE | 2017-10-22 22:00 | NUR ---
ASSISTED PT TO REPOSITION,F/C TO GRAVITY.RESUME GTUBE FEEDING AT THIS TIME,CLOSELY MONITORING TO PT.PER RECEPTION AGENT:TELEMETRY'S SR 98/MIN.
[2017-10-23] VITALS: BP 119/71
[2017-10-23] MEDS: VANCOMYCIN IV 1 G in PREMIXED 0 EACH IV SCH (01:54)
--- NOTE | 2017-10-23 02:00 | NUR ---
ASSISTED PT TO REPOSITION ON BED;ORAL CARE,SUCTION AT THIS TIME.VANCOMYCIN 1 GM IVPB TO PT ORDER;PT TOLERATED WELL.
[2017-10-23] MEDS: CARBIDOPA/LEVODOPA 25-250MG TABLET GT SCH ×5 (03:40→19:57)
[2017-10-23] MEDS: ENTACAPONE 200 MG TABLET GT SCH ×5 (03:40→19:55)
[2017-10-23 04:00] VITALS: BP 122/71
[2017-10-23] MEDS: MEROPENEM 1 G in IV NORMAL SALINE 100 ML IV SCH ×3 (05:14→21:53)
[2017-10-23] MEDS: CALCIUM CITRA-VITAMIN D 315 MG-250 UNITS TABLET GT SCH ×2 (05:14→17:04)
[2017-10-23] MEDS: LEVOTHYROXINE SODIUM 75 MCG TABLET GT SCH (05:14)
--- NOTE | 2017-10-23 06:00 | NUR ---
ASSISTED PT FOR ORAL AND AM CARE ON BED;PT'S NOT COOPERATIVE W/ASSISTANCE,MOVING HER LEFT ARM WHILE GETTING CARE.FOUND HAD SOME BLISTERS AT THE LEFT FOREARM;STILL ELEVATED LEFT ARM W/ 2 PILLOWS,SKIN'S WARM TO TOUCH,3+ EDEMA;RADIAL PULSE'S PRESENT.PT TOLERATED WELL WITH G-TUBE FEEDING;D/S CHANGE AT THIS TIME.TRACH CARE:CLEAN AND DRY AT THE SITE.F/C TO GRAVITY.
--- NOTE | 2017-10-23 07:30 | NUR ---
AWAKE FORGETFUL /CONFUSED ORTX1 NO ACUTE DISTRESS CONTINUEO2 VIA COLLAR TO TRACH P MIST 9L/MIN O2 SAT WNL 96% HOB UP AT ALL TIME AND CONTINUE GT FEEDING WITH 1.2 GLUCERNA AT 30ML/H KIM WELL NO N/V CHECK RESIDUAL Q4 HR ONLY 5ML THIS AM SUCTION PRN GIVEN SMALL AMT SECRETION OUT IV SITE LEFT AC INPLACE AND LEFT HAND/ARM STILL SWELLING WITH MULTIPLE BLISTER NOTED FROM IV INFILTRATE YESTERDAY KEEP UP ON PILLOW CLOSED OBSERVATION ON ASPIRATION AND FALL PRECAUTION BED ALARM ON
--- NOTE | 2017-10-23 08:00 | NUR ---
WOUND CARE CONSULT TO SEE PATIENT TODAY WAS ORDERED
[2017-10-23 08:24] LABS: BASOPHILS % (AUTO) 0.4 % (0.0-2.0); EOSINOPHILS # (AUTO) 0.2 K/uL (0.0-0.7); EOSINOPHILS % (AUTO) 2.9 % (0.0-7.0); HEMATOCRIT 30.9 % (31.2-41.9); HEMOGLOBIN 10.6 g/dL (10.9-14.3); LYMPHOCYTES # (AUTO) 1.6 K/uL (20.0-40.0); LYMPHOCYTES % (AUTO) 23.6 % (20.5-51.5); MEAN CORPUSCULAR HEMOGLOBIN 30.4 uug (24.7-32.8); MEAN CORPUSCULAR HGB CONC 34 g/dL (32.3-35.6); MEAN CORPUSCULAR VOLUME 88.5 fL (75.5-95.3); MONOCYTES # (AUTO) 1.1 K/uL (2.0-10.0); MONOCYTES % (AUTO) 16.5 % (0.0-11.0); NEUTROPHILS # (AUTO) 3.8 K/uL (1.8-8.9); NEUTROPHILS % (AUTO) 56.6 % (38.5-71.5); PLATELET COUNT (AUTO) 326 K/uL (179-408); RED BLOOD CELL COUNT(AUTO) 3.49 MIL/uL (3.63-4.92); WHITE BLOOD COUNT (AUTO) 6.7 K/uL (3.8-11.8)
[2017-10-23] MEDS: ACETAMINOPHEN 650 MG/20.3 ML LIQUID UDC GT PRN ×3 (08:26→21:50)
[2017-10-23] MEDS: BETHANECHOL CHLORIDE 25 MG TABLET GT SCH ×3 (08:26→16:27)
[2017-10-23] MEDS: MIRALAX 17 GM POWD.PACK GT SCH (08:26)
[2017-10-23] MEDS: DOCUSATE SODIUM 100 MG/10 ML LIQUID UDC GT SCH ×2 (08:26→19:53)
[2017-10-23] MEDS: ACIDOPHILUS/BULGARICUS CHEW TAB GT SCH ×2 (08:27→20:10)
[2017-10-23] MEDS: CHOLECALCIFEROL 1,000 UNIT TABLET GT SCH (08:27)
[2017-10-23] MEDS: AMIODARONE HCL 200 MG TABLET PO SCH ×2 (08:27→20:10)
[2017-10-23] MEDS: FAMOTIDINE 20 MG TABLET GT SCH ×2 (08:28→20:10)
[2017-10-23] MEDS: MEMANTINE HCL 10 MG TABLET GT SCH ×2 (08:28→16:27)
[2017-10-23] MEDS: MODAFINIL 100 MG TABLET PO SCH (08:28)
[2017-10-23] MEDS: MAGNESIUM OXIDE 250 MG TABLET GT SCH (08:31)
[2017-10-23] MEDS: AMANTADINE HCL 100 MG CAPSULE PO SCH ×2 (08:31→08:54)
[2017-10-23] MEDS: LEVETIRACETAM 500 MG/5 ML LIQUID UDC GT SCH ×2 (08:32→19:54)
[2017-10-23] MEDS: RIVASTIGMINE TOP SCH (08:34)
[2017-10-23] MEDS: COD LIVER OIL/ZINC OXIDE OINT 113 GM TUBE TOP SCH ×2 (08:34→20:11)
[2017-10-23] MEDS: HYDROGEN PEROXIDE 3% 118 ML BOTTLE TP SCH ×2 (08:35→20:11)
[2017-10-23 08:41] LABS: ALANINE AMINOTRANSFERASE 11 U/L (14-59); ALKALINE PHOSPHATASE 158 U/L (50-136); ASPARTATE AMINOTRANSFERASE 27 U/L (15-37); BILIRUBIN,TOTAL 0.4 mg/dL (0.2-1.0); CARBON DIOXIDE 32 mmol/L (21-32); CHLORIDE 101 mmol/L (98-107); CREATININE 0.8 mg/dL (0.6-1.3); GLUCOSE 200 mg/dL (74-106); MAGNESIUM 1.9 mg/dL (1.8-2.4); PHOSPHOROUS 2.8 mg/dL (2.5-4.9); POTASSIUM 3.5 mmol/L (3.5-5.1); TOTAL PROTEIN, SERUM 7.5 g/dL (6.4-8.2); UREA NITROGEN, BLOOD 24 mg/dL (7-18)
[2017-10-23] MEDS ORDERED: Medication Not On Formulary EA (Multivitamins (Multivitamin) 1 EACH) GT SCH (09:00)
[2017-10-23] MEDS ORDERED: MULTIVIT, IRON, MIN NO. 8, FA TABLET PO SCH (09:00)
[2017-10-23 09:55] LABS: NEUTROPHILS % (MANUAL) 61 % (42-75)
[2017-10-23 09:56] LABS: EOSINOPHILS % (MANUAL) 2 % (0-8); LYMPHOCYTES % (MANUAL) 26 % (20-40); MONOCYTES % (MANUAL) 11 % (2-10)
--- NOTE | 2017-10-23 10:30 | NUR ---
Jose Maria LICONA WAS INFORM OF BLISTER NOTED ON LEFT HAND PREVIOUS IV SITE AND DR ORTIZ WAS SEEN PATIENT TODAY ,ICEPK COMPRESS ORDER AND CONTINUE KEEP UP ON PILLOW
--- NOTE | 2017-10-23 11:00 | NUR ---
PATIENT SON ROSS REY WAS HERE AND ,INFORM OF PT HAVE BLISTER ON LEFT HAND ,SPEAK WITH MECHANICAL RELIABILITY ENGINEER Jose Maria PATTERSON , HE SEEM TO BE UN HAPPY /UPSET AND REQUEST TO SPEAK WITH MELLY /ZHANE BECKHAM WAS HERE AND SPEAK WITH HIM AT BEDSIDE,BUT HE WOULD LIKE TO SPEAK WITH ADM AND WENT TO SEE EM AT THIS TIME
[2017-10-23] MEDS: METOPROLOL TARTRATE 5 MG/5 ML VIAL IVP PRN (11:02)
[2017-10-23 11:35] VITALS: BP 141/116
--- NOTE | 2017-10-23 12:29 | NUR ---
WOUND CARE CONSULT: PT SEEN FOR LEFT HAND AND WRIST BLISTERS WHICH ARE INTACT. LEFT ARM NOTED TO BE EDEMATOUS. PER MILLICENT PATTERSON N.P. CONSULT WAS CALLED TO DR VASQUEZ. DEFER TO . CURRENT AIDA SCORE IS 12. PT ON FIRST STEP MATTRESS. ALL SKIN PROTECTION MEASURES IN PLACE AND DISCUSSED WITH NURSING STAFF. WILL SEE PRN. MD/EMPLOYEE WELFARE MANAGER IN AGREEMENT WITH PLAN OF CARE. Addendum: 10/23/17 at 1231 by JESSICA ULRICH RN Amended: Links added.
[2017-10-23] MEDS ORDERED: Z GUARD REMEDY PASTE 57 GM TUBE TOP PRN (12:30)
--- NOTE | 2017-10-23 13:30 | NUR ---
COMPOUNDING TECHNICIAN RAY SAMUEL FOR DR VASQUEZ PLASTIS SURGEON WAS HERE SEEN PATIENT THIS PM NO NEW ORDER
--- NOTE | 2017-10-23 13:37 | NUR ---
PHARMACY NOTES (VANCOMYCIN DOSING) S: 82 yo female, resident of Sub-acute unit ; ID ordered Vancomycin and Merrem for pneumonia and UTI; meds were started in subacute and now to continue in acute care. O: BUN/SCR 24/0.8 (rounded to scr 1.0); WBC 6.7; TEMP 98.6; DOSING WT 49 .5 KG A/P:will continue vancomycin at 1gm ivpb q32 hr (third dose tomorrow at 1000); estimated peak of 46 and trough of 17 plan to order level prior to 4th dose of vanco(not ordered yet) . RX will continue to monitor renal fxn and levels and adjust the dose as necessary.
--- NOTE | 2017-10-23 14:00 | NUR ---
REPOSITION Q2 HR KIM WELL DVT PUMP ON LEFT HAND BLISTER INTACT KEEP HAND UP ON 2 PILLOW AND ICE PK ON
[2017-10-23] MEDS: Z GUARD REMEDY PASTE 57 GM TUBE TOP SCH (14:29)
[2017-10-23 15:30] VITALS: BP 113/28
--- NOTE | 2017-10-23 16:00 | NUR ---
SWELLING SEEM TO BE A LITTLE DOWN BUT BLISTER STILL INTACT AND LARGE /MULTIPLE TAKE PICTURE THIS AFTERNOON
--- NOTE | 2017-10-23 17:30 | NUR ---
RESTING STABLE HEMODYNAMIC STATUS NO ACUTE DISTRESS AND PAIN UNDER CONTROL NO FEVER VS STABLE SAFETY MEASURE PROVIDED AND CALL LIGHT IN REACH FAMILY AT BEDSIDE
[2017-10-23] MEDS ORDERED: MISCELLANEOUS MED XX PRN (19:45)
[2017-10-23 20:00] VITALS: BP 110/71
--- NOTE | 2017-10-23 20:00 | NUR ---
Condition unchanged, remains confused no SOB noted O2Sat 99% on 6L trach collar in place. G-tube intact & patent no residual noted. Left forearm IV line intact. Left hand/arm swelling slightly subsided, blisters on hand is getting bigger. Seen & examined by Infectious Disease WIRING MECHANIC, Yesika Rosado. New orders received.
[2017-10-23] MEDS: DULOXETINE 20 MG CAPSULE.DR PO SCH (20:09)
[2017-10-23] MEDS: THIAMINE HCL 100 MG TABLET GT SCH (20:10)
[2017-10-23] MEDS: ASCORBIC ACID 500 MG TABLET GT SCH (20:10)
[2017-10-23] MEDS: BACLOFEN 10 MG TABLET GT SCH (20:10)
[2017-10-23] MEDS: AZILECT 1MG TABLET GT SCH (20:13)
[2017-10-23] MEDS: RIVAROXABAN 15 MG TABLET GT SCH (20:14)
[2017-10-23] MEDS ORDERED: TERIPARATIDE SQ SCH (21:00)
--- NOTE | 2017-10-23 21:00 | NUR ---
Son in room. Stated he will send a personal financial advisor for his mother in AM
[2017-10-24] VITALS: BP 151/80
[2017-10-24] MEDS: ENTACAPONE 200 MG TABLET GT SCH ×4 (00:20→12:16)
[2017-10-24] MEDS: CARBIDOPA/LEVODOPA 25-250MG TABLET GT SCH ×4 (00:20→12:16)
--- NOTE | 2017-10-24 01:00 | NUR ---
Suctioned trach & oral care provided. Tolerating g-tube feeding 30 ml/hr. G-tube site care done. Turned & repositioned.
[2017-10-24 04:00] VITALS: BP 157/71
[2017-10-24] MEDS: ACETAMINOPHEN 650 MG/20.3 ML LIQUID UDC GT PRN (04:22)
--- NOTE | 2017-10-24 05:00 | NUR ---
Had a small BM today. Incontinence care & sponge bath provided, kept trach site clean & dry. Complete linen change done. Left hand blister wound care/treatment started as ordered Xeroform gauze& dry gauze applied & wrapped with Kerlix. Kept comfortable. Sinus rhythm on the monitor.
[2017-10-24] MEDS: MEROPENEM 1 G in IV NORMAL SALINE 100 ML IV SCH ×2 (06:07→14:06)
[2017-10-24] MEDS: CALCIUM CITRA-VITAMIN D 315 MG-250 UNITS TABLET GT SCH (06:07)
[2017-10-24] MEDS: LEVOTHYROXINE SODIUM 75 MCG TABLET GT SCH (06:08)
[2017-10-24] MEDS: GLUCERNA 1.2 1000ML LIQUID GT SCH (06:51)
--- NOTE | 2017-10-24 07:00 | NUR ---
Glucerna 1.2 G-tube continuos feeding started. Aspiration precaution observed. No acute resp distress. Vital signs stable.
[2017-10-24 07:02] LABS: CARBON DIOXIDE 33 mmol/L (21-32); CHLORIDE 101 mmol/L (98-107); CREATININE 0.7 mg/dL (0.6-1.3); GLUCOSE 187 mg/dL (74-106); MAGNESIUM 1.9 mg/dL (1.8-2.4); PHOSPHOROUS 2.8 mg/dL (2.5-4.9); POTASSIUM 3.5 mmol/L (3.5-5.1); UREA NITROGEN, BLOOD 18 mg/dL (7-18)
[2017-10-24 07:04] LABS: BASOPHILS % (AUTO) 0.3 % (0.0-2.0); EOSINOPHILS # (AUTO) 0.2 K/uL (0.0-0.7); EOSINOPHILS % (AUTO) 2.4 % (0.0-7.0); HEMATOCRIT 31.7 % (31.2-41.9); HEMOGLOBIN 10.8 g/dL (10.9-14.3); LYMPHOCYTES # (AUTO) 1.4 K/uL (20.0-40.0); LYMPHOCYTES % (AUTO) 17.5 % (20.5-51.5); MEAN CORPUSCULAR HEMOGLOBIN 30.1 uug (24.7-32.8); MEAN CORPUSCULAR HGB CONC 34 g/dL (32.3-35.6); MEAN CORPUSCULAR VOLUME 88.8 fL (75.5-95.3); MONOCYTES # (AUTO) 0.9 K/uL (2.0-10.0); MONOCYTES % (AUTO) 11.5 % (0.0-11.0); NEUTROPHILS # (AUTO) 5.6 K/uL (1.8-8.9); NEUTROPHILS % (AUTO) 68.3 % (38.5-71.5); PLATELET COUNT (AUTO) 343 K/uL (179-408); RED BLOOD CELL COUNT(AUTO) 3.57 MIL/uL (3.63-4.92); WHITE BLOOD COUNT (AUTO) 8.2 K/uL (3.8-11.8)
--- NOTE | 2017-10-24 07:30 | NUR ---
SBAR REPORT RECEIVED ,NO S/S OF DISTRESS OR PAIN NOTED.
[2017-10-24] MEDS: MEMANTINE HCL 10 MG TABLET GT SCH (08:53)
[2017-10-24] MEDS: FAMOTIDINE 20 MG TABLET GT SCH (08:53)
[2017-10-24] MEDS: MODAFINIL 100 MG TABLET PO SCH (08:54)
[2017-10-24] MEDS: CHOLECALCIFEROL 1,000 UNIT TABLET GT SCH (08:54)
[2017-10-24] MEDS: ACIDOPHILUS/BULGARICUS CHEW TAB GT SCH (08:54)
[2017-10-24] MEDS: AMIODARONE HCL 200 MG TABLET PO SCH (08:54)
[2017-10-24] MEDS: DOCUSATE SODIUM 100 MG/10 ML LIQUID UDC GT SCH (08:54)
[2017-10-24] MEDS: MIRALAX 17 GM POWD.PACK GT SCH (08:54)
[2017-10-24] MEDS: COD LIVER OIL/ZINC OXIDE OINT 113 GM TUBE TOP SCH (08:56)
[2017-10-24] MEDS: HYDROGEN PEROXIDE 3% 118 ML BOTTLE TP SCH (08:56)
[2017-10-24] MEDS: Z GUARD REMEDY PASTE 57 GM TUBE TOP SCH (08:56)
[2017-10-24] MEDS: LEVETIRACETAM 500 MG/5 ML LIQUID UDC GT SCH (08:57)
[2017-10-24] MEDS: AMANTADINE HCL 100 MG CAPSULE PO SCH (08:58)
[2017-10-24] MEDS: RIVASTIGMINE TOP SCH (08:59)
[2017-10-24] MEDS: MAGNESIUM OXIDE 250 MG TABLET GT SCH (08:59)
[2017-10-24] MEDS: BETHANECHOL CHLORIDE 25 MG TABLET GT SCH ×2 (09:40→12:16)
[2017-10-24] MEDS: VANCOMYCIN IV 1 G in PREMIXED 0 EACH IV SCH (09:40)
--- NOTE | 2017-10-24 10:00 | NUR ---
CAREGIVER AT BEDSIDE,UPDATED WITH PT CONDITION AND PLAN OF CARE.
--- NOTE | 2017-10-24 10:31 | NUR ---
PHARMACY NOTES (VANCOMYCIN DOSING) S: 82 yo female, resident of Sub-acute unit ; ID ordered Vancomycin and Merrem for pneumonia and UTI; meds were started in subacute and now to continue in acute care. O: BUN/SCR 18/0.7 (rounded to scr 1.0); WBC 8.2; TEMP 97.9; DOSING WT 49.5 KG A/P:will continue vancomycin at 1gm ivpb q32 hr (third dose today at 1000); estimated peak of 46 and trough of 17 plan to order level prior to 4th dose of vanco(due tomorrow 10/25 @2130) . RX will continue to monitor renal fxn and levels and adjust the dose as necessary.
[2017-10-24] MEDS ORDERED: MERO1VIA IV (11:26)
[2017-10-24] MEDS ORDERED: AMIO200T6 PO (11:26)
[2017-10-24] MEDS ORDERED: ALBU2.5V13 NEB (11:26)
--- NOTE | 2017-10-24 11:30 | NUR ---
Pt.was seen by WASHHOUSE HANDEmmanuel with new orders.
[2017-10-24 11:36] VITALS: BP 142/38
--- NOTE | 2017-10-24 14:30 | NUR ---
WOUND PICTURE WAS TAKEN PRIOR D/C TO SUB.ACUTE.
--- NOTE | 2017-10-24 15:00 | NUR ---
PT.WILL BE TX BACK TO SUB.ACUTE,FAMILY AND CAREGIVER AWARE.
[2017-10-24 15:22] VITALS: BP 138/74
--- NOTE | 2017-10-24 15:55 | NUR ---
SBAR REPORT GIVEN TO CHARGE /RN SUB.ACUTE ZEN,PT.TX TO ROOM #422,NO S/S OF DISTRESS.
== END 2017-10-24 15:55 | DRG 871 ==
LOC: ER 14:09 → TELE 16:13
PROVIDERS: ADMIT Internal Medicine; ATTEND Internal Medicine
DX: A41.9 Sepsis, unspecified organism (principal); J15.1 Pneumonia due to Pseudomonas; I50.33 Acute on chronic diastolic (congestive) heart failure; R53.2 Functional quadriplegia; J96.11 Chronic respiratory failure with hypoxia; I48.92 Unspecified atrial flutter; I69.351 Hemiplegia and hemiparesis following cerebral infarction affecting right dominant side; I13.0 Hypertensive heart and chronic kidney disease with heart failure and stage 1 through stage 4 chronic kidney disease, or unspecified chronic kidney disease; D68.59 Other primary thrombophilia; G93.1 Anoxic brain damage, not elsewhere classified; N39.0 Urinary tract infection, site not specified; Z93.0 Tracheostomy status; Z93.1 Gastrostomy status; I25.10 Atherosclerotic heart disease of native coronary artery without angina pectoris; Z95.1 Presence of aortocoronary bypass graft; Y95 Nosocomial condition; Z74.01 Bed confinement status; I48.2 Chronic atrial fibrillation; Z86.74 Personal history of sudden cardiac arrest; Z86.718 Personal history of other venous thrombosis and embolism; Z87.440 Personal history of urinary (tract) infections; G31.83 Neurocognitive disorder with Lewy bodies; F02.80 Dementia in other diseases classified elsewhere, unspecified severity, without behavioral disturbance, psychotic disturbance, mood disturbance, and anxiety; I69.319 Unspecified symptoms and signs involving cognitive functions following cerebral infarction; F01.50 Vascular dementia, unspecified severity, without behavioral disturbance, psychotic disturbance, mood disturbance, and anxiety; I69.391 Dysphagia following cerebral infarction; I69.398 Other sequelae of cerebral infarction; R13.10 Dysphagia, unspecified; N31.9 Neuromuscular dysfunction of bladder, unspecified; Z79.01 Long term (current) use of anticoagulants; E11.22 Type 2 diabetes mellitus with diabetic chronic kidney disease; N18.2 Chronic kidney disease, stage 2 (mild); Z79.4 Long term (current) use of insulin; E03.9 Hypothyroidism, unspecified; G89.29 Other chronic pain; I49.5 Sick sinus syndrome; Z83.3 Family history of diabetes mellitus; L30.9 Dermatitis, unspecified; Z86.19 Personal history of other infectious and parasitic diseases; I48.0 Paroxysmal atrial fibrillation; I69.320 Aphasia following cerebral infarction; T80.89XA Other complications following infusion, transfusion and therapeutic injection, initial encounter; S60.522A Blister (nonthermal) of left hand, initial encounter; Y84.8 Other medical procedures as the cause of abnormal reaction of the patient, or of later complication, without mention of misadventure at the time of the procedure; Y78.0 Diagnostic and monitoring radiological devices associated with adverse incidents; Y92.238 Other place in hospital as the place of occurrence of the external cause; E78.5 Hyperlipidemia, unspecified; M81.0 Age-related osteoporosis without current pathological fracture; Z79.899 Other long term (current) drug therapy; D64.9 Anemia, unspecified; R74.8 Abnormal levels of other serum enzymes
CPT/HCPCS: 36415; 70030-TC; 71045; 73200; 83605; 83735; 84100; 85025; 87040; 87070; 87086; 93005; 94640; A4217; A4663; J1940; J2060; J2185; J3370; J3490; Q9951; Q9967

== ENCOUNTER 2018-05-14 | Inpatient (IN) | END 2019-05-13 23:59 | disposition still patient (30) | DRG 189 | DX: J96.11 Chronic respiratory failure with hypoxia (principal); R53.2 Functional quadriplegia; G93.1 Anoxic brain damage, not elsewhere classified; D68.59 Other primary thrombophilia; I13.0 Hypertensive heart and chronic kidney disease with heart failure and stage 1 through stage 4 chronic kidney disease, or unspecified chronic kidney disease; I48.92 Unspecified atrial flutter; I69.351 Hemiplegia and hemiparesis following cerebral infarction affecting right dominant side; N39.0 Urinary tract infection, site not specified; I48.20 Chronic atrial fibrillation, unspecified; Z86.74 Personal history of sudden cardiac arrest; Z95.1 Presence of aortocoronary bypass graft; G20 Parkinson's disease; I25.10 Atherosclerotic heart disease of native coronary artery without angina pectoris; I12.9 Hypertensive chronic kidney disease with stage 1 through stage 4 chronic kidney disease, or unspecified chronic kidney disease; N18.9 Chronic kidney disease, unspecified; E78.5 Hyperlipidemia, unspecified; E03.9 Hypothyroidism, unspecified; I69.398 Other sequelae of cerebral infarction; E11.22 Type 2 diabetes mellitus with diabetic chronic kidney disease; F02.80 Dementia in other diseases classified elsewhere, unspecified severity, without behavioral disturbance, psychotic disturbance, mood disturbance, and anxiety; G89.29 Other chronic pain; I48.0 Paroxysmal atrial fibrillation; Z79.01 Long term (current) use of anticoagulants; I49.5 Sick sinus syndrome; I69.320 Aphasia following cerebral infarction; I70.0 Atherosclerosis of aorta; I70.8 Atherosclerosis of other arteries; J40 Bronchitis, not specified as acute or chronic; K40.90 Unilateral inguinal hernia, without obstruction or gangrene, not specified as recurrent; M19.90 Unspecified osteoarthritis, unspecified site; M77.31 Calcaneal spur, right foot; N31.9 Neuromuscular dysfunction of bladder, unspecified; R13.10 Dysphagia, unspecified; Z93.0 Tracheostomy status; Z74.01 Bed confinement status; Z87.440 Personal history of urinary (tract) infections; Z93.1 Gastrostomy status; I25.2 Old myocardial infarction; B96.1 Klebsiella pneumoniae [K. pneumoniae] as the cause of diseases classified elsewhere; M79.18 Myalgia, other site; Z79.4 Long term (current) use of insulin; M48.56XD Collapsed vertebra, not elsewhere classified, lumbar region, subsequent encounter for fracture with routine healing ==

== ENCOUNTER 2019-05-14 | Inpatient (IN) | payer MEDICARE, MEDICAID ==
[~2019-05-14] VITALS: Ht 152.4 cm; Wt 54.9 kg
[2019-05-15] MEDS ORDERED: BISACODYL 10 MG SUPP.RECT RC PRN (12:30)
[2019-05-15] MEDS ORDERED: DEXTROSE 50% 50 ML DISP.SYRIN IV PRN (12:45)
[2019-05-15] MEDS ORDERED: VITAMINS A AND D OINT TP PRN (12:45)
[2019-05-15] MEDS ORDERED: DILTIAZEM HCL 30 MG TABLET GT PRN (12:45)
[2019-05-15] MEDS ORDERED: COD LIVER OIL/ZINC OXIDE OINT 113 GM TUBE TP PRN (12:45)
[2019-05-15] MEDS ORDERED: [UNRECOGNIZED DRUG - OTHER] XX PRN (12:45)
[2019-05-15] MEDS ORDERED: [UNRECOGNIZED DRUG - OTHER] XX PRN (12:45)
[2019-05-15] MEDS ORDERED: HYDROGEN PEROXIDE 3% 118 ML BOTTLE TP PRN (12:45)
[2019-05-15] MEDS: BLOOD SUGAR DIAGNOSTIC 1 EACH STRIP VI SCH (16:01)
[2019-05-15] MEDS: CARBIDOPA/LEVODOPA 25-250MG TABLET GT SCH ×3 (16:01→23:30)
[2019-05-15] MEDS: MEMANTINE HCL 10 MG TABLET GT SCH (16:02)
[2019-05-15] MEDS: GLUCERNA SHAKE 237 ML CAN GT SCH ×2 (17:22→21:51)
[2019-05-15] MEDS: ENTACAPONE 200 MG TABLET GT SCH ×2 (17:22→21:50)
[2019-05-15 20:35] VITALS: BP 117/72
[2019-05-15] MEDS: HYDROGEN PEROXIDE 3% 118 ML BOTTLE TP SCH (20:42)
[2019-05-15] MEDS: THIAMINE HCL 100 MG TABLET GT SCH (21:49)
[2019-05-15] MEDS: BACLOFEN 10 MG TABLET GT SCH (21:49)
[2019-05-15] MEDS: DOCUSATE SODIUM 100 MG/10 ML LIQUID UDC GT SCH (21:49)
[2019-05-15] MEDS: AZILECT 1 MG TAB GT SCH (21:49)
[2019-05-15] MEDS: FAMOTIDINE 20 MG TABLET GT SCH (21:49)
[2019-05-15] MEDS: ATORVASTATIN 40 MG TABLET GT SCH (21:49)
[2019-05-15] MEDS: LEVETIRACETAM 500 MG/5 ML LIQUID UDC GT SCH (21:49)
[2019-05-15] MEDS: RIVAROXABAN 15 MG TABLET GT SCH (21:49)
[2019-05-15] MEDS: ASCORBIC ACID 500 MG TABLET GT SCH (21:49)
[2019-05-15] MEDS: TERIPARATIDE SQ SCH (21:50)
[2019-05-15] MEDS: COD LIVER OIL/ZINC OXIDE OINT 113 GM TUBE TP SCH (21:50)
[2019-05-15] MEDS: ACIDOPHILUS/BULGARICUS CHEW TAB PO SCH (21:50)
[2019-05-15] MEDS: BETHANECHOL CHLORIDE 25 MG TABLET GT SCH (21:51)
[2019-05-16] MEDS: INSULIN REGULAR, HUMAN 300 UNIT/3 ML VIAL SQ PRN ×4 (00:50→23:08)
[2019-05-16] MEDS: ENTACAPONE 200 MG TABLET GT SCH ×6 (01:30→21:02)
[2019-05-16] MEDS: GLUCERNA SHAKE 237 ML CAN GT SCH ×6 (02:00→21:02)
[2019-05-16] MEDS: CARBIDOPA/LEVODOPA 25-250MG TABLET GT SCH ×6 (03:30→23:08)
[2019-05-16] MEDS: MULTIVIT, IRON, MIN NO. 8, FA TABLET GT SCH (05:11)
[2019-05-16] MEDS: BETHANECHOL CHLORIDE 25 MG TABLET GT SCH ×3 (05:11→21:02)
[2019-05-16] MEDS: CALCIUM CITRA-VITAMIN D 315 MG-250 UNITS TABLET GT SCH (05:11)
[2019-05-16] MEDS: CHOLECALCIFEROL 1,000 UNIT TABLET GT SCH (05:11)
[2019-05-16] MEDS: MAGNESIUM OXIDE 250 MG TABLET GT SCH (05:11)
[2019-05-16] MEDS: PROTEIN SUPPLEMENT (PROSTAT) 30 ML LIQUID GT SCH (05:11)
[2019-05-16] MEDS: LEVOTHYROXINE SODIUM 100 MCG TABLET GT SCH (05:11)
[2019-05-16] MEDS: GLIMEPIRIDE 1 MG GT SCH (07:47)
[2019-05-16] MEDS: BLOOD SUGAR DIAGNOSTIC 1 EACH STRIP VI SCH ×5 (07:47→23:07)
[2019-05-16] MEDS: COD LIVER OIL/ZINC OXIDE OINT 113 GM TUBE TP SCH ×2 (08:32→20:06)
[2019-05-16] MEDS: FAMOTIDINE 20 MG TABLET GT SCH ×2 (08:32→20:04)
[2019-05-16] MEDS: AMANTADINE HCL 100 MG TABLET GT SCH (08:32)
[2019-05-16] MEDS: ACIDOPHILUS/BULGARICUS CHEW TAB PO SCH ×2 (08:32→20:06)
[2019-05-16] MEDS: RIVASTIGMINE 13.3 MG TOP SCH (08:32)
[2019-05-16] MEDS: MEMANTINE HCL 10 MG TABLET GT SCH ×2 (08:32→16:16)
[2019-05-16] MEDS: ASCORBIC ACID 500 MG TABLET GT SCH ×2 (08:32→20:04)
[2019-05-16] MEDS: CRANBERRY 450 MG GT SCH (08:32)
[2019-05-16] MEDS: MODAFINIL 100 MG TABLET GT SCH (08:32)
[2019-05-16] MEDS: MIRALAX 17 GM POWD.PACK GT SCH (08:32)
[2019-05-16] MEDS: DOCUSATE SODIUM 100 MG/10 ML LIQUID UDC GT SCH ×2 (08:32→20:04)
[2019-05-16] MEDS: AMIODARONE 100 MG GT SCH (08:32)
[2019-05-16] MEDS: LEVETIRACETAM 500 MG/5 ML LIQUID UDC GT SCH ×2 (08:32→20:04)
[2019-05-16] MEDS: HYDROGEN PEROXIDE 3% 118 ML BOTTLE TP SCH ×2 (09:57→21:36)
[2019-05-16 11:30] VITALS: BP 117/79
[2019-05-16] MEDS: ATORVASTATIN 40 MG TABLET GT SCH (20:04)
[2019-05-16] MEDS: BACLOFEN 10 MG TABLET GT SCH (20:04)
[2019-05-16] MEDS: THIAMINE HCL 100 MG TABLET GT SCH (20:04)
[2019-05-16] MEDS: AZILECT 1 MG TAB GT SCH (20:04)
[2019-05-16] MEDS: RIVAROXABAN 15 MG TABLET GT SCH (20:06)
[2019-05-16] MEDS: TERIPARATIDE SQ SCH (20:06)
[2019-05-16 20:45] VITALS: BP 108/62
[2019-05-17] MEDS: ENTACAPONE 200 MG TABLET GT SCH ×6 (01:33→21:12)
[2019-05-17] MEDS: GLUCERNA SHAKE 237 ML CAN GT SCH ×6 (01:33→21:12)
[2019-05-17] MEDS: CARBIDOPA/LEVODOPA 25-250MG TABLET GT SCH ×6 (03:39→23:26)
[2019-05-17] MEDS: BETHANECHOL CHLORIDE 25 MG TABLET GT SCH ×3 (05:23→21:12)
[2019-05-17] MEDS: MAGNESIUM OXIDE 250 MG TABLET GT SCH (05:23)
[2019-05-17] MEDS: CHOLECALCIFEROL 1,000 UNIT TABLET GT SCH (05:23)
[2019-05-17] MEDS: PROTEIN SUPPLEMENT (PROSTAT) 30 ML LIQUID GT SCH (05:23)
[2019-05-17] MEDS: CALCIUM CITRA-VITAMIN D 315 MG-250 UNITS TABLET GT SCH (05:23)
[2019-05-17] MEDS: LEVOTHYROXINE SODIUM 100 MCG TABLET GT SCH (05:23)
[2019-05-17 07:49] VITALS: BP 132/77
[2019-05-17] MEDS: BLOOD SUGAR DIAGNOSTIC 1 EACH STRIP VI SCH ×4 (08:14→23:26)
[2019-05-17] MEDS: INSULIN REGULAR, HUMAN 300 UNIT/3 ML VIAL SQ PRN ×3 (08:18→23:27)
[2019-05-17] MEDS: DOCUSATE SODIUM 100 MG/10 ML LIQUID UDC GT SCH ×2 (08:19→20:19)
[2019-05-17] MEDS: GLIMEPIRIDE 1 MG GT SCH (08:19)
[2019-05-17] MEDS: LEVETIRACETAM 500 MG/5 ML LIQUID UDC GT SCH ×2 (08:20→20:19)
[2019-05-17] MEDS: FAMOTIDINE 20 MG TABLET GT SCH ×2 (08:21→20:19)
[2019-05-17] MEDS: MIRALAX 17 GM POWD.PACK GT SCH (08:21)
[2019-05-17] MEDS: AMIODARONE 100 MG GT SCH (08:21)
[2019-05-17] MEDS: CRANBERRY 450 MG GT SCH (08:21)
[2019-05-17] MEDS: MEMANTINE HCL 10 MG TABLET GT SCH ×2 (08:21→16:02)
[2019-05-17] MEDS: ASCORBIC ACID 500 MG TABLET GT SCH ×2 (08:24→20:19)
[2019-05-17] MEDS: AMANTADINE HCL 100 MG TABLET GT SCH (08:24)
[2019-05-17] MEDS: MODAFINIL 100 MG TABLET GT SCH (08:24)
[2019-05-17] MEDS: ACIDOPHILUS/BULGARICUS CHEW TAB PO SCH ×2 (08:24→20:20)
[2019-05-17] MEDS: COD LIVER OIL/ZINC OXIDE OINT 113 GM TUBE TP SCH ×2 (08:25→20:20)
[2019-05-17] MEDS: RIVASTIGMINE 13.3 MG TOP SCH (08:25)
[2019-05-17] MEDS: HYDROGEN PEROXIDE 3% 118 ML BOTTLE TP SCH ×2 (10:40→21:58)
[2019-05-17] MEDS: THIAMINE HCL 100 MG TABLET GT SCH (20:19)
[2019-05-17] MEDS: AZILECT 1 MG TAB GT SCH (20:19)
[2019-05-17] MEDS: ATORVASTATIN 40 MG TABLET GT SCH (20:19)
[2019-05-17] MEDS: BACLOFEN 10 MG TABLET GT SCH (20:19)
[2019-05-17] MEDS: TERIPARATIDE SQ SCH (20:20)
[2019-05-17] MEDS: RIVAROXABAN 15 MG TABLET GT SCH (20:20)
[2019-05-17 21:18] VITALS: BP 120/46
[2019-05-18] MEDS: ENTACAPONE 200 MG TABLET GT SCH ×6 (01:29→21:16)
[2019-05-18] MEDS: GLUCERNA SHAKE 237 ML CAN GT SCH ×6 (01:29→21:16)
[2019-05-18] MEDS: CARBIDOPA/LEVODOPA 25-250MG TABLET GT SCH ×6 (04:17→22:44)
[2019-05-18] MEDS: PROTEIN SUPPLEMENT (PROSTAT) 30 ML LIQUID GT SCH (05:13)
[2019-05-18] MEDS: CALCIUM CITRA-VITAMIN D 315 MG-250 UNITS TABLET GT SCH (05:13)
[2019-05-18] MEDS: MAGNESIUM OXIDE 250 MG TABLET GT SCH (05:13)
[2019-05-18] MEDS: LEVOTHYROXINE SODIUM 100 MCG TABLET GT SCH (05:13)
[2019-05-18] MEDS: CHOLECALCIFEROL 1,000 UNIT TABLET GT SCH (05:13)
[2019-05-18] MEDS: BETHANECHOL CHLORIDE 25 MG TABLET GT SCH ×3 (05:13→21:16)
[2019-05-18] MEDS: MULTIVIT, IRON, MIN NO. 8, FA TABLET GT SCH (05:13)
[2019-05-18] MEDS: BLOOD SUGAR DIAGNOSTIC 1 EACH STRIP VI SCH ×4 (07:30→23:13)
[2019-05-18] MEDS: HYDROGEN PEROXIDE 3% 118 ML BOTTLE TP SCH ×2 (07:52→20:41)
[2019-05-18 08:04] VITALS: BP 129/71
[2019-05-18] MEDS: AMIODARONE 100 MG GT SCH (08:41)
[2019-05-18] MEDS: LEVETIRACETAM 500 MG/5 ML LIQUID UDC GT SCH ×2 (08:41→20:02)
[2019-05-18] MEDS: DOCUSATE SODIUM 100 MG/10 ML LIQUID UDC GT SCH ×2 (08:41→20:02)
[2019-05-18] MEDS: MEMANTINE HCL 10 MG TABLET GT SCH ×2 (08:41→17:23)
[2019-05-18] MEDS: MIRALAX 17 GM POWD.PACK GT SCH (08:41)
[2019-05-18] MEDS: CRANBERRY 450 MG GT SCH (08:41)
[2019-05-18] MEDS: GLIMEPIRIDE 1 MG GT SCH (08:41)
[2019-05-18] MEDS: FAMOTIDINE 20 MG TABLET GT SCH ×2 (08:42→20:02)
[2019-05-18] MEDS: MODAFINIL 100 MG TABLET GT SCH (08:42)
[2019-05-18] MEDS: ACIDOPHILUS/BULGARICUS CHEW TAB PO SCH ×2 (08:42→20:02)
[2019-05-18] MEDS: ASCORBIC ACID 500 MG TABLET GT SCH ×2 (08:42→20:02)
[2019-05-18] MEDS: AMANTADINE HCL 100 MG TABLET GT SCH (08:42)
[2019-05-18] MEDS: COD LIVER OIL/ZINC OXIDE OINT 113 GM TUBE TP SCH ×2 (08:42→20:02)
[2019-05-18] MEDS: RIVASTIGMINE 13.3 MG TOP SCH (08:42)
[2019-05-18] MEDS: INSULIN REGULAR, HUMAN 300 UNIT/3 ML VIAL SQ PRN ×3 (11:45→23:15)
[2019-05-18] MEDS: ATORVASTATIN 40 MG TABLET GT SCH (20:02)
[2019-05-18] MEDS: BACLOFEN 10 MG TABLET GT SCH (20:02)
[2019-05-18] MEDS: THIAMINE HCL 100 MG TABLET GT SCH (20:02)
[2019-05-18] MEDS: AZILECT 1 MG TAB GT SCH (20:02)
[2019-05-18] MEDS: TERIPARATIDE SQ SCH (20:02)
[2019-05-18] MEDS: RIVAROXABAN 15 MG TABLET GT SCH (20:06)
[2019-05-18 20:27] VITALS: BP 98/60
[2019-05-19] MEDS: ENTACAPONE 200 MG TABLET GT SCH ×6 (01:31→21:46)
[2019-05-19] MEDS: GLUCERNA SHAKE 237 ML CAN GT SCH ×6 (01:31→22:09)
[2019-05-19] MEDS: CARBIDOPA/LEVODOPA 25-250MG TABLET GT SCH ×6 (03:27→20:00)
[2019-05-19] MEDS: CALCIUM CITRA-VITAMIN D 315 MG-250 UNITS TABLET GT SCH (05:31)
[2019-05-19] MEDS: BETHANECHOL CHLORIDE 25 MG TABLET GT SCH ×3 (05:31→22:09)
[2019-05-19] MEDS: PROTEIN SUPPLEMENT (PROSTAT) 30 ML LIQUID GT SCH (05:31)
[2019-05-19] MEDS: LEVOTHYROXINE SODIUM 100 MCG TABLET GT SCH (05:31)
[2019-05-19] MEDS: CHOLECALCIFEROL 1,000 UNIT TABLET GT SCH (05:31)
[2019-05-19] MEDS: MAGNESIUM OXIDE 250 MG TABLET GT SCH (05:31)
[2019-05-19 08:00] VITALS: BP 135/80
[2019-05-19] MEDS: AMIODARONE 100 MG GT SCH (08:16)
[2019-05-19] MEDS: RIVASTIGMINE 13.3 MG TOP SCH (08:16)
[2019-05-19] MEDS: MIRALAX 17 GM POWD.PACK GT SCH (08:16)
[2019-05-19] MEDS: FAMOTIDINE 20 MG TABLET GT SCH ×2 (08:16→21:05)
[2019-05-19] MEDS: ACIDOPHILUS/BULGARICUS CHEW TAB PO SCH ×2 (08:16→21:06)
[2019-05-19] MEDS: LEVETIRACETAM 500 MG/5 ML LIQUID UDC GT SCH ×2 (08:16→21:05)
[2019-05-19] MEDS: BLOOD SUGAR DIAGNOSTIC 1 EACH STRIP VI SCH ×3 (08:16→16:00)
[2019-05-19] MEDS: AMANTADINE HCL 100 MG TABLET GT SCH (08:16)
[2019-05-19] MEDS: CRANBERRY 450 MG GT SCH (08:16)
[2019-05-19] MEDS: MODAFINIL 100 MG TABLET GT SCH (08:16)
[2019-05-19] MEDS: DOCUSATE SODIUM 100 MG/10 ML LIQUID UDC GT SCH ×2 (08:16→21:05)
[2019-05-19] MEDS: GLIMEPIRIDE 1 MG GT SCH (08:16)
[2019-05-19] MEDS: ASCORBIC ACID 500 MG TABLET GT SCH ×2 (08:16→21:06)
[2019-05-19] MEDS: COD LIVER OIL/ZINC OXIDE OINT 113 GM TUBE TP SCH ×2 (08:16→21:06)
[2019-05-19] MEDS: MEMANTINE HCL 10 MG TABLET GT SCH ×2 (08:16→17:50)
[2019-05-19] MEDS: HYDROGEN PEROXIDE 3% 118 ML BOTTLE TP SCH ×2 (09:00→21:20)
[2019-05-19] MEDS: INSULIN REGULAR, HUMAN 300 UNIT/3 ML VIAL SQ PRN ×2 (11:22→17:50)
[2019-05-19] MEDS: AZILECT 1 MG TAB GT SCH (21:05)
[2019-05-19] MEDS: ATORVASTATIN 40 MG TABLET GT SCH (21:05)
[2019-05-19] MEDS: BACLOFEN 10 MG TABLET GT SCH (21:05)
[2019-05-19] MEDS: THIAMINE HCL 100 MG TABLET GT SCH (21:06)
[2019-05-19] MEDS: TERIPARATIDE SQ SCH (21:08)
[2019-05-19] MEDS: RIVAROXABAN 15 MG TABLET GT SCH (21:50)
[2019-05-19 22:08] VITALS: BP 99/57
[2019-05-20] MEDS: BLOOD SUGAR DIAGNOSTIC 1 EACH STRIP VI SCH ×5 (00:55→23:15)
[2019-05-20] MEDS: INSULIN REGULAR, HUMAN 300 UNIT/3 ML VIAL SQ PRN ×4 (01:02→23:31)
[2019-05-20] MEDS: GLUCERNA SHAKE 237 ML CAN GT SCH ×6 (02:03→21:37)
[2019-05-20] MEDS: ENTACAPONE 200 MG TABLET GT SCH ×6 (02:03→21:37)
[2019-05-20] MEDS: CARBIDOPA/LEVODOPA 25-250MG TABLET GT SCH ×6 (04:12→23:14)
[2019-05-20] MEDS: CALCIUM CITRA-VITAMIN D 315 MG-250 UNITS TABLET GT SCH (05:49)
[2019-05-20] MEDS: MAGNESIUM OXIDE 250 MG TABLET GT SCH (05:49)
[2019-05-20] MEDS: PROTEIN SUPPLEMENT (PROSTAT) 30 ML LIQUID GT SCH (05:50)
[2019-05-20] MEDS: BETHANECHOL CHLORIDE 25 MG TABLET GT SCH ×3 (05:50→21:37)
[2019-05-20] MEDS: CHOLECALCIFEROL 1,000 UNIT TABLET GT SCH (05:50)
[2019-05-20] MEDS: LEVOTHYROXINE SODIUM 100 MCG TABLET GT SCH (05:50)
[2019-05-20] MEDS: MULTIVIT, IRON, MIN NO. 8, FA TABLET GT SCH (05:50)
[2019-05-20 08:00] VITALS: BP 147/89
[2019-05-20] MEDS: GLIMEPIRIDE 1 MG GT SCH (08:00)
[2019-05-20] MEDS: HYDROGEN PEROXIDE 3% 118 ML BOTTLE TP SCH ×2 (09:00→21:28)
[2019-05-20] MEDS: MEMANTINE HCL 10 MG TABLET GT SCH ×2 (09:00→17:00)
[2019-05-20] MEDS: CRANBERRY 450 MG GT SCH (09:00)
[2019-05-20] MEDS: AMANTADINE HCL 100 MG TABLET GT SCH (09:00)
[2019-05-20] MEDS: AMIODARONE 100 MG GT SCH (09:00)
[2019-05-20] MEDS: LEVETIRACETAM 500 MG/5 ML LIQUID UDC GT SCH ×2 (09:00→21:32)
[2019-05-20] MEDS: ASCORBIC ACID 500 MG TABLET GT SCH ×2 (09:00→21:34)
[2019-05-20] MEDS: MIRALAX 17 GM POWD.PACK GT SCH (09:00)
[2019-05-20] MEDS: FAMOTIDINE 20 MG TABLET GT SCH ×2 (09:00→21:33)
[2019-05-20] MEDS: MODAFINIL 100 MG TABLET GT SCH (09:00)
[2019-05-20] MEDS: COD LIVER OIL/ZINC OXIDE OINT 113 GM TUBE TP SCH ×2 (09:00→21:36)
[2019-05-20] MEDS: DOCUSATE SODIUM 100 MG/10 ML LIQUID UDC GT SCH ×2 (09:00→21:28)
[2019-05-20] MEDS: RIVASTIGMINE 13.3 MG TOP SCH (09:00)
[2019-05-20] MEDS: ACIDOPHILUS/BULGARICUS CHEW TAB PO SCH ×2 (09:00→21:34)
[2019-05-20] MEDS: RIVAROXABAN 15 MG TABLET GT SCH (21:00)
[2019-05-20 21:26] VITALS: BP 128/70
[2019-05-20] MEDS: ATORVASTATIN 40 MG TABLET GT SCH (21:33)
[2019-05-20] MEDS: AZILECT 1 MG TAB GT SCH (21:33)
[2019-05-20] MEDS: BACLOFEN 10 MG TABLET GT SCH (21:33)
[2019-05-20] MEDS: THIAMINE HCL 100 MG TABLET GT SCH (21:34)
[2019-05-20] MEDS: TERIPARATIDE SQ SCH (21:36)
[2019-05-21] MEDS: GLUCERNA SHAKE 237 ML CAN GT SCH ×6 (01:34→21:37)
[2019-05-21] MEDS: ENTACAPONE 200 MG TABLET GT SCH ×6 (01:34→21:37)
[2019-05-21] MEDS: CARBIDOPA/LEVODOPA 25-250MG TABLET GT SCH ×6 (03:30→23:11)
--- NOTE | 2019-05-21 06:00 | NUR ---
mod amt of blood noted in pt's mouth while doing oral care.charge nurse informed and in coming nurse.cont. to monitor.
[2019-05-21] MEDS: LEVOTHYROXINE SODIUM 100 MCG TABLET GT SCH (06:15)
[2019-05-21] MEDS: CALCIUM CITRA-VITAMIN D 315 MG-250 UNITS TABLET GT SCH (06:15)
[2019-05-21] MEDS: PROTEIN SUPPLEMENT (PROSTAT) 30 ML LIQUID GT SCH (06:15)
[2019-05-21] MEDS: BETHANECHOL CHLORIDE 25 MG TABLET GT SCH ×3 (06:15→21:37)
[2019-05-21] MEDS: MAGNESIUM OXIDE 250 MG TABLET GT SCH (06:15)
[2019-05-21] MEDS: CHOLECALCIFEROL 1,000 UNIT TABLET GT SCH (06:15)
[2019-05-21] MEDS: BLOOD SUGAR DIAGNOSTIC 1 EACH STRIP VI SCH ×4 (07:24→23:11)
[2019-05-21] MEDS: INSULIN REGULAR, HUMAN 300 UNIT/3 ML VIAL SQ PRN ×4 (07:26→23:11)
[2019-05-21] MEDS: GLIMEPIRIDE 1 MG GT SCH (07:31)
[2019-05-21 08:00] VITALS: BP 144/62
[2019-05-21] MEDS: AMIODARONE 100 MG GT SCH (08:36)
[2019-05-21] MEDS: FAMOTIDINE 20 MG TABLET GT SCH ×2 (08:36→21:32)
[2019-05-21] MEDS: CRANBERRY 450 MG GT SCH (08:36)
[2019-05-21] MEDS: AMANTADINE HCL 100 MG TABLET GT SCH (08:36)
[2019-05-21] MEDS: MODAFINIL 100 MG TABLET GT SCH (08:36)
[2019-05-21] MEDS: COD LIVER OIL/ZINC OXIDE OINT 113 GM TUBE TP SCH ×2 (08:36→21:37)
[2019-05-21] MEDS: RIVASTIGMINE 13.3 MG TOP SCH (08:36)
[2019-05-21] MEDS: ASCORBIC ACID 500 MG TABLET GT SCH ×2 (08:36→21:32)
[2019-05-21] MEDS: MEMANTINE HCL 10 MG TABLET GT SCH ×2 (08:36→17:14)
[2019-05-21] MEDS: MIRALAX 17 GM POWD.PACK GT SCH (08:36)
[2019-05-21] MEDS: LEVETIRACETAM 500 MG/5 ML LIQUID UDC GT SCH ×2 (08:36→21:30)
[2019-05-21] MEDS: ACIDOPHILUS/BULGARICUS CHEW TAB PO SCH ×2 (08:36→21:33)
[2019-05-21] MEDS: DOCUSATE SODIUM 100 MG/10 ML LIQUID UDC GT SCH ×2 (08:36→21:30)
[2019-05-21] MEDS: HYDROGEN PEROXIDE 3% 118 ML BOTTLE TP SCH ×2 (09:25→20:53)
--- NOTE | 2019-05-21 11:03 | NUR ---
SW contacted patient's son Alen (ADELA) via email to set up a time to meet with him in order to review and obtain signatures on patient's annual admission paperwork.
--- NOTE | 2019-05-21 14:00 | NUR ---
No blood noted from mouth, oral cage given, seen by Dr. Zuluaga. son Ali at bedside.
--- NOTE | 2019-05-21 15:07 | NUR ---
2:00pm: SPENCER met with patient's son Alen today and obtained signatures on all annual admission paperwork for patient's new chart. The paperwork included: Conditions of Admission, Patient Rights Acknowledgement, An Important Message from Medicare about your Rights, Documentation of Preferred Intensity of Care, Voluntary Prior Express Consent Form, Race and Ethnicity Patient Self-Identification, and the [facility] Agreement. SPENCER offered Alen a copy of the signed forms, and Alen agreed. SPENCER provided Alen with copies of the signed forms. For assessment/quarterly information, see patient's previous chart #[id number].
--- NOTE | 2019-05-21 15:27 | NUR ---
Patient seen today by Dr. Zuluaga, per MD orders for a dental consult and for her annual dental exam. See dental notes in chart for details. Patient's son Alen was present during the exam and consulted with Dr. Zuluaga. Patient's son Alen then met with this SW to inquire about the possibility of taking the patient to the dentist's office for a more thorough cleaning. SPENCER consulted with Dr. Zuluaga, who stated that he would be fine with that. SPENCER informed Alen that Dr. Zuluaga was ok with bringing patient to the dentist's office, and SPENCER also informed Alen that Alen would have to pay [id number]. Alen asked SPENCER to find out what the cleaning fee would be. SW to inquire and report back to Alen.
[2019-05-21] MEDS: IPRATROPIUM BROMIDE 0.5 MG/2.5 ML NEBU NEB PRN (15:45)
[2019-05-21] MEDS: ALBUTEROL SULFATE 2.5 MG/3 ML NEBU NEB PRN (15:45)
[2019-05-21 20:23] VITALS: BP 127/82
[2019-05-21] MEDS: BACLOFEN 10 MG TABLET GT SCH (21:31)
[2019-05-21] MEDS: THIAMINE HCL 100 MG TABLET GT SCH (21:32)
[2019-05-21] MEDS: ATORVASTATIN 40 MG TABLET GT SCH (21:32)
[2019-05-21] MEDS: AZILECT 1 MG TAB GT SCH (21:32)
[2019-05-21] MEDS: RIVAROXABAN 15 MG TABLET GT SCH (21:33)
[2019-05-21] MEDS: TERIPARATIDE SQ SCH (21:33)
[2019-05-22] MEDS: GLUCERNA SHAKE 237 ML CAN GT SCH ×6 (01:23→21:10)
[2019-05-22] MEDS: ENTACAPONE 200 MG TABLET GT SCH ×6 (01:23→21:10)
[2019-05-22] MEDS: CARBIDOPA/LEVODOPA 25-250MG TABLET GT SCH ×6 (03:30→23:30)
[2019-05-22] MEDS: CHOLECALCIFEROL 1,000 UNIT TABLET GT SCH (05:36)
[2019-05-22] MEDS: PROTEIN SUPPLEMENT (PROSTAT) 30 ML LIQUID GT SCH (05:36)
[2019-05-22] MEDS: MAGNESIUM OXIDE 250 MG TABLET GT SCH (05:36)
[2019-05-22] MEDS: CALCIUM CITRA-VITAMIN D 315 MG-250 UNITS TABLET GT SCH (05:36)
[2019-05-22] MEDS: BETHANECHOL CHLORIDE 25 MG TABLET GT SCH ×3 (05:36→21:10)
[2019-05-22] MEDS: LEVOTHYROXINE SODIUM 100 MCG TABLET GT SCH (05:36)
[2019-05-22] MEDS: MULTIVIT, IRON, MIN NO. 8, FA TABLET GT SCH (05:36)
[2019-05-22 08:05] VITALS: BP 150/40
[2019-05-22] MEDS: BLOOD SUGAR DIAGNOSTIC 1 EACH STRIP VI SCH ×3 (08:08→16:29)
[2019-05-22] MEDS: INSULIN REGULAR, HUMAN 300 UNIT/3 ML VIAL SQ PRN ×2 (08:09→16:31)
[2019-05-22] MEDS: LEVETIRACETAM 500 MG/5 ML LIQUID UDC GT SCH ×2 (08:10→21:06)
[2019-05-22] MEDS: GLIMEPIRIDE 1 MG GT SCH (08:10)
[2019-05-22] MEDS: DOCUSATE SODIUM 100 MG/10 ML LIQUID UDC GT SCH ×2 (08:10→21:06)
[2019-05-22] MEDS: CRANBERRY 450 MG GT SCH (08:11)
[2019-05-22] MEDS: MODAFINIL 100 MG TABLET GT SCH (08:12)
[2019-05-22] MEDS: MEMANTINE HCL 10 MG TABLET GT SCH ×2 (08:12→16:30)
[2019-05-22] MEDS: AMIODARONE 100 MG GT SCH (08:12)
[2019-05-22] MEDS: MIRALAX 17 GM POWD.PACK GT SCH (08:12)
[2019-05-22] MEDS: FAMOTIDINE 20 MG TABLET GT SCH ×2 (08:12→21:09)
[2019-05-22] MEDS: AMANTADINE HCL 100 MG TABLET GT SCH (08:12)
[2019-05-22] MEDS: RIVASTIGMINE 13.3 MG TOP SCH (08:13)
[2019-05-22] MEDS: COD LIVER OIL/ZINC OXIDE OINT 113 GM TUBE TP SCH ×2 (08:13→21:10)
[2019-05-22] MEDS: ASCORBIC ACID 500 MG TABLET GT SCH ×2 (08:13→21:10)
[2019-05-22] MEDS: ACIDOPHILUS/BULGARICUS CHEW TAB PO SCH ×2 (08:13→21:10)
[2019-05-22] MEDS: HYDROGEN PEROXIDE 3% 118 ML BOTTLE TP SCH ×2 (09:00→21:00)
--- NOTE | 2019-05-22 15:20 | NUR ---
SPENCER called Bonnie at Dr. Zuluaga's office and scheduled patient's annual cleaning for 06/25/2019. Per patient's son Alen's request to take patient into the dentist's office for a deep cleaning, SPENCER inquired about the cost of a cleaning. Bonnie stated that the cleaning in the office will cost $200 and would take about 1 hour. SPENCER stated that SPENCER will let patient's son Alen know about the cost, and will then let Bonnie know if Alen would like to schedule an appointment. Bonnie agreed. SPENCER then email patient's son Alen and informed him that patient's annual dental cleaning is scheduled for 06/25/2019. In the same email, SPENCER also notified Alen about the cost for an in-office deep cleaning, which is $200. SPENCER will wait to hear back from Alen regarding his decision of whether or not he would like to schedule an additional in-office dental cleaning for the patient.
[2019-05-22] MEDS: IPRATROPIUM BROMIDE 0.5 MG/2.5 ML NEBU NEB PRN (15:41)
[2019-05-22] MEDS: ALBUTEROL SULFATE 2.5 MG/3 ML NEBU NEB PRN (15:41)
--- NOTE | 2019-05-22 17:01 | NUR ---
SPENCER called Dr. Zuluaga's office [phone] and spoke with Bonnie. Patient's annual dental cleaning is scheduled for 06/25/2019. SPENCER informed patient's son Alen via email about this appointment. SPENCER then received an email back from Alen stated that he would like to wait to see how this cleaning goes first before scheduling an additional cleaning appointment at the dentist's office. SPENCER responded back via email acknowledging son's request.
[2019-05-22 20:36] VITALS: BP 122/38
[2019-05-22] MEDS: BACLOFEN 10 MG TABLET GT SCH (21:07)
[2019-05-22] MEDS: ATORVASTATIN 40 MG TABLET GT SCH (21:09)
[2019-05-22] MEDS: AZILECT 1 MG TAB GT SCH (21:09)
[2019-05-22] MEDS: THIAMINE HCL 100 MG TABLET GT SCH (21:09)
[2019-05-22] MEDS: RIVAROXABAN 15 MG TABLET GT SCH (21:10)
[2019-05-22] MEDS: TERIPARATIDE SQ SCH (21:10)
[2019-05-23] MEDS: INSULIN REGULAR, HUMAN 300 UNIT/3 ML VIAL SQ PRN ×3 (00:15→16:06)
[2019-05-23] MEDS: ENTACAPONE 200 MG TABLET GT SCH ×6 (01:30→20:38)
[2019-05-23] MEDS: GLUCERNA SHAKE 237 ML CAN GT SCH ×6 (02:00→21:38)
[2019-05-23] MEDS: CARBIDOPA/LEVODOPA 25-250MG TABLET GT SCH ×6 (03:30→23:58)
[2019-05-23] MEDS: MAGNESIUM OXIDE 250 MG TABLET GT SCH (05:34)
[2019-05-23] MEDS: CALCIUM CITRA-VITAMIN D 315 MG-250 UNITS TABLET GT SCH (05:34)
[2019-05-23] MEDS: PROTEIN SUPPLEMENT (PROSTAT) 30 ML LIQUID GT SCH (05:34)
[2019-05-23] MEDS: LEVOTHYROXINE SODIUM 100 MCG TABLET GT SCH (05:36)
[2019-05-23] MEDS: BETHANECHOL CHLORIDE 25 MG TABLET GT SCH ×3 (05:36→21:38)
[2019-05-23] MEDS: CHOLECALCIFEROL 1,000 UNIT TABLET GT SCH (05:36)
[2019-05-23] MEDS: BLOOD SUGAR DIAGNOSTIC 1 EACH STRIP VI SCH ×5 (07:51→23:58)
[2019-05-23] MEDS: GLIMEPIRIDE 1 MG GT SCH (07:54)
[2019-05-23 08:07] VITALS: BP 98/61
[2019-05-23] MEDS: CRANBERRY 450 MG GT SCH (08:16)
[2019-05-23] MEDS: LEVETIRACETAM 500 MG/5 ML LIQUID UDC GT SCH ×2 (08:16→20:35)
[2019-05-23] MEDS: FAMOTIDINE 20 MG TABLET GT SCH ×2 (08:16→20:35)
[2019-05-23] MEDS: AMANTADINE HCL 100 MG TABLET GT SCH (08:16)
[2019-05-23] MEDS: ASCORBIC ACID 500 MG TABLET GT SCH ×2 (08:16→20:36)
[2019-05-23] MEDS: COD LIVER OIL/ZINC OXIDE OINT 113 GM TUBE TP SCH ×2 (08:16→20:38)
[2019-05-23] MEDS: DOCUSATE SODIUM 100 MG/10 ML LIQUID UDC GT SCH ×2 (08:16→20:56)
[2019-05-23] MEDS: MIRALAX 17 GM POWD.PACK GT SCH (08:16)
[2019-05-23] MEDS: RIVASTIGMINE 13.3 MG TOP SCH (08:16)
[2019-05-23] MEDS: MODAFINIL 100 MG TABLET GT SCH (08:16)
[2019-05-23] MEDS: MEMANTINE HCL 10 MG TABLET GT SCH ×2 (08:16→16:43)
[2019-05-23] MEDS: ACIDOPHILUS/BULGARICUS CHEW TAB PO SCH ×2 (08:16→20:36)
[2019-05-23] MEDS: AMIODARONE 100 MG GT SCH (08:16)
[2019-05-23] MEDS: HYDROGEN PEROXIDE 3% 118 ML BOTTLE TP SCH ×2 (09:00→20:53)
[2019-05-23] MEDS: ATORVASTATIN 40 MG TABLET GT SCH (20:35)
[2019-05-23] MEDS: BACLOFEN 10 MG TABLET GT SCH (20:35)
[2019-05-23] MEDS: AZILECT 1 MG TAB GT SCH (20:35)
[2019-05-23] MEDS: THIAMINE HCL 100 MG TABLET GT SCH (20:36)
[2019-05-23] MEDS: TERIPARATIDE SQ SCH (20:38)
[2019-05-23] MEDS: RIVAROXABAN 15 MG TABLET GT SCH (20:40)
[2019-05-23 20:44] VITALS: BP 122/52
[2019-05-24] MEDS: INSULIN REGULAR, HUMAN 300 UNIT/3 ML VIAL SQ PRN ×3 (00:04→11:13)
[2019-05-24] MEDS: ENTACAPONE 200 MG TABLET GT SCH ×6 (01:35→21:37)
[2019-05-24] MEDS: GLUCERNA SHAKE 237 ML CAN GT SCH ×6 (02:27→22:03)
[2019-05-24] MEDS: CARBIDOPA/LEVODOPA 25-250MG TABLET GT SCH ×6 (04:11→23:58)
[2019-05-24] MEDS: LEVOTHYROXINE SODIUM 100 MCG TABLET GT SCH (05:14)
[2019-05-24] MEDS: BETHANECHOL CHLORIDE 25 MG TABLET GT SCH ×3 (05:14→22:03)
[2019-05-24] MEDS: CHOLECALCIFEROL 1,000 UNIT TABLET GT SCH (05:14)
[2019-05-24] MEDS: MAGNESIUM OXIDE 250 MG TABLET GT SCH (05:14)
[2019-05-24] MEDS: CALCIUM CITRA-VITAMIN D 315 MG-250 UNITS TABLET GT SCH (05:14)
[2019-05-24] MEDS: MULTIVIT, IRON, MIN NO. 8, FA TABLET GT SCH (05:14)
[2019-05-24] MEDS: PROTEIN SUPPLEMENT (PROSTAT) 30 ML LIQUID GT SCH (05:14)
[2019-05-24] MEDS: BLOOD SUGAR DIAGNOSTIC 1 EACH STRIP VI SCH ×3 (07:22→16:05)
[2019-05-24 08:00] VITALS: BP 129/80
[2019-05-24] MEDS: COD LIVER OIL/ZINC OXIDE OINT 113 GM TUBE TP SCH ×2 (08:11→21:37)
[2019-05-24] MEDS: MEMANTINE HCL 10 MG TABLET GT SCH ×2 (08:11→16:06)
[2019-05-24] MEDS: MIRALAX 17 GM POWD.PACK GT SCH (08:11)
[2019-05-24] MEDS: CRANBERRY 450 MG GT SCH (08:11)
[2019-05-24] MEDS: LEVETIRACETAM 500 MG/5 ML LIQUID UDC GT SCH ×2 (08:11→21:35)
[2019-05-24] MEDS: DOCUSATE SODIUM 100 MG/10 ML LIQUID UDC GT SCH ×2 (08:11→21:33)
[2019-05-24] MEDS: GLIMEPIRIDE 1 MG GT SCH (08:11)
[2019-05-24] MEDS: FAMOTIDINE 20 MG TABLET GT SCH ×2 (08:11→21:36)
[2019-05-24] MEDS: MODAFINIL 100 MG TABLET GT SCH (08:11)
[2019-05-24] MEDS: ASCORBIC ACID 500 MG TABLET GT SCH ×2 (08:11→21:36)
[2019-05-24] MEDS: AMIODARONE 100 MG GT SCH (08:11)
[2019-05-24] MEDS: RIVASTIGMINE 13.3 MG TOP SCH (08:11)
[2019-05-24] MEDS: AMANTADINE HCL 100 MG TABLET GT SCH (08:11)
[2019-05-24] MEDS: ACIDOPHILUS/BULGARICUS CHEW TAB PO SCH ×2 (08:11→21:36)
[2019-05-24] MEDS: HYDROGEN PEROXIDE 3% 118 ML BOTTLE TP SCH ×2 (10:50→20:55)
[2019-05-24] MEDS: IPRATROPIUM BROMIDE 0.5 MG/2.5 ML NEBU NEB PRN (15:46)
[2019-05-24] MEDS: ALBUTEROL SULFATE 2.5 MG/3 ML NEBU NEB PRN (15:46)
[2019-05-24 20:42] VITALS: BP 114/65
[2019-05-24] MEDS: RIVAROXABAN 15 MG TABLET GT SCH (21:00)
[2019-05-24] MEDS: BACLOFEN 10 MG TABLET GT SCH (21:35)
[2019-05-24] MEDS: ATORVASTATIN 40 MG TABLET GT SCH (21:35)
[2019-05-24] MEDS: AZILECT 1 MG TAB GT SCH (21:36)
[2019-05-24] MEDS: THIAMINE HCL 100 MG TABLET GT SCH (21:36)
[2019-05-24] MEDS: TERIPARATIDE SQ SCH (21:37)
[2019-05-25] MEDS: BLOOD SUGAR DIAGNOSTIC 1 EACH STRIP VI SCH ×4 (00:05→15:57)
[2019-05-25] MEDS: INSULIN REGULAR, HUMAN 300 UNIT/3 ML VIAL SQ PRN ×4 (00:13→15:57)
[2019-05-25] MEDS: ENTACAPONE 200 MG TABLET GT SCH ×6 (01:30→20:33)
[2019-05-25] MEDS: GLUCERNA SHAKE 237 ML CAN GT SCH ×6 (02:00→22:43)
[2019-05-25] MEDS: CARBIDOPA/LEVODOPA 25-250MG TABLET GT SCH ×6 (03:30→22:43)
[2019-05-25] MEDS: MAGNESIUM OXIDE 250 MG TABLET GT SCH (06:08)
[2019-05-25] MEDS: CALCIUM CITRA-VITAMIN D 315 MG-250 UNITS TABLET GT SCH (06:08)
[2019-05-25] MEDS: BETHANECHOL CHLORIDE 25 MG TABLET GT SCH ×3 (06:08→22:43)
[2019-05-25] MEDS: LEVOTHYROXINE SODIUM 100 MCG TABLET GT SCH (06:08)
[2019-05-25] MEDS: PROTEIN SUPPLEMENT (PROSTAT) 30 ML LIQUID GT SCH (06:08)
[2019-05-25] MEDS: CHOLECALCIFEROL 1,000 UNIT TABLET GT SCH (06:08)
[2019-05-25] MEDS: GLIMEPIRIDE 1 MG GT SCH (07:49)
[2019-05-25 08:00] VITALS: BP 99/64
[2019-05-25] MEDS: COD LIVER OIL/ZINC OXIDE OINT 113 GM TUBE TP SCH ×2 (08:28→20:33)
[2019-05-25] MEDS: ASCORBIC ACID 500 MG TABLET GT SCH ×2 (08:28→20:33)
[2019-05-25] MEDS: AMIODARONE 100 MG GT SCH (08:28)
[2019-05-25] MEDS: MEMANTINE HCL 10 MG TABLET GT SCH ×2 (08:28→16:57)
[2019-05-25] MEDS: MIRALAX 17 GM POWD.PACK GT SCH (08:28)
[2019-05-25] MEDS: CRANBERRY 450 MG GT SCH (08:28)
[2019-05-25] MEDS: MODAFINIL 100 MG TABLET GT SCH (08:28)
[2019-05-25] MEDS: FAMOTIDINE 20 MG TABLET GT SCH ×2 (08:28→20:32)
[2019-05-25] MEDS: DOCUSATE SODIUM 100 MG/10 ML LIQUID UDC GT SCH ×2 (08:28→20:30)
[2019-05-25] MEDS: AMANTADINE HCL 100 MG TABLET GT SCH (08:28)
[2019-05-25] MEDS: RIVASTIGMINE 13.3 MG TOP SCH (08:28)
[2019-05-25] MEDS: LEVETIRACETAM 500 MG/5 ML LIQUID UDC GT SCH ×2 (08:28→20:30)
[2019-05-25] MEDS: ACIDOPHILUS/BULGARICUS CHEW TAB PO SCH ×2 (08:28→20:33)
[2019-05-25] MEDS: HYDROGEN PEROXIDE 3% 118 ML BOTTLE TP SCH ×2 (09:10→20:52)
[2019-05-25 20:26] VITALS: BP 140/79
[2019-05-25] MEDS: RIVAROXABAN 15 MG TABLET GT SCH (20:28)
[2019-05-25] MEDS: BACLOFEN 10 MG TABLET GT SCH (20:30)
[2019-05-25] MEDS: ATORVASTATIN 40 MG TABLET GT SCH (20:32)
[2019-05-25] MEDS: AZILECT 1 MG TAB GT SCH (20:32)
[2019-05-25] MEDS: THIAMINE HCL 100 MG TABLET GT SCH (20:32)
[2019-05-25] MEDS: TERIPARATIDE SQ SCH (20:33)
[2019-05-26] MEDS: BLOOD SUGAR DIAGNOSTIC 1 EACH STRIP VI SCH ×5 (00:12→23:25)
[2019-05-26] MEDS: INSULIN REGULAR, HUMAN 300 UNIT/3 ML VIAL SQ PRN ×4 (00:14→23:27)
[2019-05-26] MEDS: GLUCERNA SHAKE 237 ML CAN GT SCH ×6 (01:45→22:12)
[2019-05-26] MEDS: ENTACAPONE 200 MG TABLET GT SCH ×6 (01:45→20:42)
[2019-05-26] MEDS: CARBIDOPA/LEVODOPA 25-250MG TABLET GT SCH ×6 (04:02→23:25)
[2019-05-26] MEDS: CALCIUM CITRA-VITAMIN D 315 MG-250 UNITS TABLET GT SCH (05:08)
[2019-05-26] MEDS: CHOLECALCIFEROL 1,000 UNIT TABLET GT SCH (05:08)
[2019-05-26] MEDS: LEVOTHYROXINE SODIUM 100 MCG TABLET GT SCH (05:08)
[2019-05-26] MEDS: PROTEIN SUPPLEMENT (PROSTAT) 30 ML LIQUID GT SCH (05:08)
[2019-05-26] MEDS: MAGNESIUM OXIDE 250 MG TABLET GT SCH (05:08)
[2019-05-26] MEDS: BETHANECHOL CHLORIDE 25 MG TABLET GT SCH ×3 (05:08→22:12)
[2019-05-26] MEDS: MULTIVIT, IRON, MIN NO. 8, FA TABLET GT SCH (05:08)
[2019-05-26 08:00] VITALS: BP 154/84
[2019-05-26] MEDS: LEVETIRACETAM 500 MG/5 ML LIQUID UDC GT SCH ×2 (08:28→20:40)
[2019-05-26] MEDS: GLIMEPIRIDE 1 MG GT SCH (08:28)
[2019-05-26] MEDS: DOCUSATE SODIUM 100 MG/10 ML LIQUID UDC GT SCH ×2 (08:28→20:40)
[2019-05-26] MEDS: MIRALAX 17 GM POWD.PACK GT SCH (08:29)
[2019-05-26] MEDS: FAMOTIDINE 20 MG TABLET GT SCH ×2 (08:29→20:40)
[2019-05-26] MEDS: AMIODARONE 100 MG GT SCH (08:29)
[2019-05-26] MEDS: MEMANTINE HCL 10 MG TABLET GT SCH ×2 (08:29→17:30)
[2019-05-26] MEDS: CRANBERRY 450 MG GT SCH (08:29)
[2019-05-26] MEDS: MODAFINIL 100 MG TABLET GT SCH (08:30)
[2019-05-26] MEDS: ASCORBIC ACID 500 MG TABLET GT SCH ×2 (08:30→20:40)
[2019-05-26] MEDS: ACIDOPHILUS/BULGARICUS CHEW TAB PO SCH ×2 (08:30→20:41)
[2019-05-26] MEDS: AMANTADINE HCL 100 MG TABLET GT SCH (08:30)
[2019-05-26] MEDS: COD LIVER OIL/ZINC OXIDE OINT 113 GM TUBE TP SCH ×2 (08:31→20:42)
[2019-05-26] MEDS: RIVASTIGMINE 13.3 MG TOP SCH (08:31)
[2019-05-26] MEDS: HYDROGEN PEROXIDE 3% 118 ML BOTTLE TP SCH ×2 (09:00→20:17)
--- NOTE | 2019-05-26 15:46 | NUR ---
SPENCER notified patient's son Alen via email that the next IDT meeting for the patient has been scheduled for 06/03/2019 at 11am.
[2019-05-26] MEDS: AZILECT 1 MG TAB GT SCH (20:40)
[2019-05-26] MEDS: ATORVASTATIN 40 MG TABLET GT SCH (20:40)
[2019-05-26] MEDS: THIAMINE HCL 100 MG TABLET GT SCH (20:40)
[2019-05-26] MEDS: BACLOFEN 10 MG TABLET GT SCH (20:40)
[2019-05-26] MEDS: RIVAROXABAN 15 MG TABLET GT SCH (20:40)
[2019-05-26] MEDS: TERIPARATIDE SQ SCH (20:41)
[2019-05-26 20:59] VITALS: BP 99/49
[2019-05-27] MEDS: ENTACAPONE 200 MG TABLET GT SCH ×6 (01:09→20:43)
[2019-05-27] MEDS: CARBIDOPA/LEVODOPA 25-250MG TABLET GT SCH ×6 (02:30→23:40)
[2019-05-27] MEDS: GLUCERNA SHAKE 237 ML CAN GT SCH ×6 (02:30→22:12)
[2019-05-27] MEDS: LEVOTHYROXINE SODIUM 100 MCG TABLET GT SCH (05:07)
[2019-05-27] MEDS: CALCIUM CITRA-VITAMIN D 315 MG-250 UNITS TABLET GT SCH (05:07)
[2019-05-27] MEDS: CHOLECALCIFEROL 1,000 UNIT TABLET GT SCH (05:07)
[2019-05-27] MEDS: PROTEIN SUPPLEMENT (PROSTAT) 30 ML LIQUID GT SCH (05:07)
[2019-05-27] MEDS: BETHANECHOL CHLORIDE 25 MG TABLET GT SCH ×3 (05:07→22:12)
[2019-05-27] MEDS: MAGNESIUM OXIDE 250 MG TABLET GT SCH (05:07)
[2019-05-27] MEDS: BLOOD SUGAR DIAGNOSTIC 1 EACH STRIP VI SCH ×3 (07:31→16:10)
[2019-05-27] MEDS: INSULIN REGULAR, HUMAN 300 UNIT/3 ML VIAL SQ PRN ×2 (07:32→11:42)
[2019-05-27 08:00] VITALS: BP 124/84
[2019-05-27] MEDS: LEVETIRACETAM 500 MG/5 ML LIQUID UDC GT SCH ×2 (08:11→20:42)
[2019-05-27] MEDS: GLIMEPIRIDE 1 MG GT SCH (08:11)
[2019-05-27] MEDS: DOCUSATE SODIUM 100 MG/10 ML LIQUID UDC GT SCH ×2 (08:11→20:42)
[2019-05-27] MEDS: CRANBERRY 450 MG GT SCH (08:13)
[2019-05-27] MEDS: ASCORBIC ACID 500 MG TABLET GT SCH ×2 (08:13→20:43)
[2019-05-27] MEDS: AMIODARONE 100 MG GT SCH (08:13)
[2019-05-27] MEDS: ACIDOPHILUS/BULGARICUS CHEW TAB PO SCH ×2 (08:13→20:43)
[2019-05-27] MEDS: MIRALAX 17 GM POWD.PACK GT SCH (08:13)
[2019-05-27] MEDS: RIVASTIGMINE 13.3 MG TOP SCH (08:13)
[2019-05-27] MEDS: MODAFINIL 100 MG TABLET GT SCH (08:13)
[2019-05-27] MEDS: MEMANTINE HCL 10 MG TABLET GT SCH ×2 (08:13→16:10)
[2019-05-27] MEDS: FAMOTIDINE 20 MG TABLET GT SCH ×2 (08:13→20:42)
[2019-05-27] MEDS: COD LIVER OIL/ZINC OXIDE OINT 113 GM TUBE TP SCH ×2 (08:13→20:43)
[2019-05-27] MEDS: AMANTADINE HCL 100 MG TABLET GT SCH (08:13)
[2019-05-27] MEDS: HYDROGEN PEROXIDE 3% 118 ML BOTTLE TP SCH ×2 (09:00→20:56)
[2019-05-27] MEDS: ALBUTEROL SULFATE 2.5 MG/3 ML NEBU NEB PRN (15:07)
[2019-05-27] MEDS: IPRATROPIUM BROMIDE 0.5 MG/2.5 ML NEBU NEB PRN (15:07)
[2019-05-27 20:21] VITALS: BP 114/49
[2019-05-27] MEDS: RIVAROXABAN 15 MG TABLET GT SCH (20:36)
[2019-05-27] MEDS: ATORVASTATIN 40 MG TABLET GT SCH (20:42)
[2019-05-27] MEDS: THIAMINE HCL 100 MG TABLET GT SCH (20:42)
[2019-05-27] MEDS: AZILECT 1 MG TAB GT SCH (20:42)
[2019-05-27] MEDS: BACLOFEN 10 MG TABLET GT SCH (20:42)
[2019-05-27] MEDS: TERIPARATIDE SQ SCH (20:43)
[2019-05-28] MEDS: BLOOD SUGAR DIAGNOSTIC 1 EACH STRIP VI SCH ×4 (00:06→16:19)
[2019-05-28] MEDS: INSULIN REGULAR, HUMAN 300 UNIT/3 ML VIAL SQ PRN ×4 (00:26→16:22)
[2019-05-28] MEDS: ENTACAPONE 200 MG TABLET GT SCH ×6 (01:43→21:49)
[2019-05-28] MEDS: GLUCERNA SHAKE 237 ML CAN GT SCH ×6 (02:07→21:49)
[2019-05-28] MEDS: CARBIDOPA/LEVODOPA 25-250MG TABLET GT SCH ×5 (03:57→19:30)
[2019-05-28] MEDS: LEVOTHYROXINE SODIUM 100 MCG TABLET GT SCH (05:30)
[2019-05-28] MEDS: MAGNESIUM OXIDE 250 MG TABLET GT SCH (05:30)
[2019-05-28] MEDS: PROTEIN SUPPLEMENT (PROSTAT) 30 ML LIQUID GT SCH (05:30)
[2019-05-28] MEDS: CALCIUM CITRA-VITAMIN D 315 MG-250 UNITS TABLET GT SCH (05:30)
[2019-05-28] MEDS: MULTIVIT, IRON, MIN NO. 8, FA TABLET GT SCH (05:31)
[2019-05-28] MEDS: BETHANECHOL CHLORIDE 25 MG TABLET GT SCH ×3 (05:31→21:50)
[2019-05-28] MEDS: CHOLECALCIFEROL 1,000 UNIT TABLET GT SCH (05:31)
[2019-05-28 07:58] VITALS: BP 116/49
[2019-05-28] MEDS: GLIMEPIRIDE 1 MG GT SCH (08:07)
[2019-05-28] MEDS: AMANTADINE HCL 100 MG TABLET GT SCH (08:07)
[2019-05-28] MEDS: DOCUSATE SODIUM 100 MG/10 ML LIQUID UDC GT SCH ×2 (08:07→21:47)
[2019-05-28] MEDS: MEMANTINE HCL 10 MG TABLET GT SCH ×2 (08:07→16:22)
[2019-05-28] MEDS: ACIDOPHILUS/BULGARICUS CHEW TAB PO SCH ×2 (08:07→21:49)
[2019-05-28] MEDS: MODAFINIL 100 MG TABLET GT SCH (08:07)
[2019-05-28] MEDS: RIVASTIGMINE 13.3 MG TOP SCH (08:07)
[2019-05-28] MEDS: ASCORBIC ACID 500 MG TABLET GT SCH ×2 (08:07→21:48)
[2019-05-28] MEDS: MIRALAX 17 GM POWD.PACK GT SCH (08:07)
[2019-05-28] MEDS: LEVETIRACETAM 500 MG/5 ML LIQUID UDC GT SCH ×2 (08:07→21:47)
[2019-05-28] MEDS: FAMOTIDINE 20 MG TABLET GT SCH ×2 (08:07→21:48)
[2019-05-28] MEDS: COD LIVER OIL/ZINC OXIDE OINT 113 GM TUBE TP SCH ×2 (08:07→21:49)
[2019-05-28] MEDS: CRANBERRY 450 MG GT SCH (08:07)
[2019-05-28] MEDS: AMIODARONE 100 MG GT SCH (08:07)
[2019-05-28] MEDS: HYDROGEN PEROXIDE 3% 118 ML BOTTLE TP SCH ×2 (08:57→21:10)
[2019-05-28] MEDS: AZILECT 1 MG TAB GT SCH (21:48)
[2019-05-28] MEDS: THIAMINE HCL 100 MG TABLET GT SCH (21:48)
[2019-05-28] MEDS: BACLOFEN 10 MG TABLET GT SCH (21:48)
[2019-05-28] MEDS: ATORVASTATIN 40 MG TABLET GT SCH (21:48)
[2019-05-28] MEDS: RIVAROXABAN 15 MG TABLET GT SCH (21:49)
[2019-05-28] MEDS: TERIPARATIDE SQ SCH (21:49)
[2019-05-29] MEDS: BLOOD SUGAR DIAGNOSTIC 1 EACH STRIP VI SCH ×4 (00:25→15:29)
[2019-05-29] MEDS: CARBIDOPA/LEVODOPA 25-250MG TABLET GT SCH ×7 (00:25→22:56)
[2019-05-29] MEDS: INSULIN REGULAR, HUMAN 300 UNIT/3 ML VIAL SQ PRN ×3 (00:26→15:29)
[2019-05-29] MEDS: ENTACAPONE 200 MG TABLET GT SCH ×6 (01:46→20:45)
[2019-05-29] MEDS: GLUCERNA SHAKE 237 ML CAN GT SCH ×6 (02:00→21:02)
[2019-05-29] MEDS: CHOLECALCIFEROL 1,000 UNIT TABLET GT SCH (05:12)
[2019-05-29] MEDS: BETHANECHOL CHLORIDE 25 MG TABLET GT SCH ×3 (05:12→21:02)
[2019-05-29] MEDS: LEVOTHYROXINE SODIUM 100 MCG TABLET GT SCH (05:12)
[2019-05-29] MEDS: CALCIUM CITRA-VITAMIN D 315 MG-250 UNITS TABLET GT SCH (05:12)
[2019-05-29] MEDS: MAGNESIUM OXIDE 250 MG TABLET GT SCH (05:12)
[2019-05-29] MEDS: PROTEIN SUPPLEMENT (PROSTAT) 30 ML LIQUID GT SCH (05:12)
[2019-05-29 08:00] VITALS: BP 110/60
[2019-05-29] MEDS: GLIMEPIRIDE 1 MG GT SCH (08:27)
[2019-05-29] MEDS: DOCUSATE SODIUM 100 MG/10 ML LIQUID UDC GT SCH ×2 (08:28→20:43)
[2019-05-29] MEDS: LEVETIRACETAM 500 MG/5 ML LIQUID UDC GT SCH ×2 (08:28→20:43)
[2019-05-29] MEDS: CRANBERRY 450 MG GT SCH (08:28)
[2019-05-29] MEDS: MIRALAX 17 GM POWD.PACK GT SCH (08:28)
[2019-05-29] MEDS: AMIODARONE 100 MG GT SCH (08:29)
[2019-05-29] MEDS: MEMANTINE HCL 10 MG TABLET GT SCH ×2 (08:29→17:29)
[2019-05-29] MEDS: MODAFINIL 100 MG TABLET GT SCH (08:30)
[2019-05-29] MEDS: ASCORBIC ACID 500 MG TABLET GT SCH ×2 (08:30→20:45)
[2019-05-29] MEDS: AMANTADINE HCL 100 MG TABLET GT SCH (08:30)
[2019-05-29] MEDS: ACIDOPHILUS/BULGARICUS CHEW TAB PO SCH ×2 (08:30→20:45)
[2019-05-29] MEDS: RIVASTIGMINE 13.3 MG TOP SCH (08:30)
[2019-05-29] MEDS: FAMOTIDINE 20 MG TABLET GT SCH ×2 (08:30→20:44)
[2019-05-29] MEDS: COD LIVER OIL/ZINC OXIDE OINT 113 GM TUBE TP SCH ×2 (08:31→20:45)
[2019-05-29] MEDS: HYDROGEN PEROXIDE 3% 118 ML BOTTLE TP SCH ×2 (10:00→21:27)
[2019-05-29] MEDS: IPRATROPIUM BROMIDE 0.5 MG/2.5 ML NEBU NEB PRN (16:04)
[2019-05-29] MEDS: ALBUTEROL SULFATE 2.5 MG/3 ML NEBU NEB PRN (16:05)
[2019-05-29 20:20] VITALS: BP 122/65
[2019-05-29] MEDS: THIAMINE HCL 100 MG TABLET GT SCH (20:44)
[2019-05-29] MEDS: BACLOFEN 10 MG TABLET GT SCH (20:44)
[2019-05-29] MEDS: AZILECT 1 MG TAB GT SCH (20:44)
[2019-05-29] MEDS: ATORVASTATIN 40 MG TABLET GT SCH (20:44)
[2019-05-29] MEDS: TERIPARATIDE SQ SCH (20:45)
[2019-05-29] MEDS: RIVAROXABAN 15 MG TABLET GT SCH (21:03)
[2019-05-30] MEDS: BLOOD SUGAR DIAGNOSTIC 1 EACH STRIP VI SCH ×4 (00:08→16:00)
[2019-05-30] MEDS: INSULIN REGULAR, HUMAN 300 UNIT/3 ML VIAL SQ PRN ×3 (00:25→11:34)
[2019-05-30] MEDS: GLUCERNA SHAKE 237 ML CAN GT SCH ×6 (01:28→21:09)
[2019-05-30] MEDS: ENTACAPONE 200 MG TABLET GT SCH ×6 (01:28→21:09)
[2019-05-30] MEDS: CARBIDOPA/LEVODOPA 25-250MG TABLET GT SCH ×5 (03:30→20:05)
[2019-05-30] MEDS: PROTEIN SUPPLEMENT (PROSTAT) 30 ML LIQUID GT SCH (05:38)
[2019-05-30] MEDS: MAGNESIUM OXIDE 250 MG TABLET GT SCH (05:38)
[2019-05-30] MEDS: CALCIUM CITRA-VITAMIN D 315 MG-250 UNITS TABLET GT SCH (05:38)
[2019-05-30] MEDS: LEVOTHYROXINE SODIUM 100 MCG TABLET GT SCH (05:39)
[2019-05-30] MEDS: CHOLECALCIFEROL 1,000 UNIT TABLET GT SCH (05:39)
[2019-05-30] MEDS: BETHANECHOL CHLORIDE 25 MG TABLET GT SCH ×3 (05:39→21:09)
[2019-05-30] MEDS: MULTIVIT, IRON, MIN NO. 8, FA TABLET GT SCH (05:39)
[2019-05-30] MEDS: GLIMEPIRIDE 1 MG GT SCH (07:19)
[2019-05-30 08:00] VITALS: BP 127/69
[2019-05-30] MEDS: CRANBERRY 450 MG GT SCH (08:41)
[2019-05-30] MEDS: LEVETIRACETAM 500 MG/5 ML LIQUID UDC GT SCH ×2 (08:41→21:08)
[2019-05-30] MEDS: MEMANTINE HCL 10 MG TABLET GT SCH ×2 (08:41→17:06)
[2019-05-30] MEDS: DOCUSATE SODIUM 100 MG/10 ML LIQUID UDC GT SCH ×2 (08:41→21:08)
[2019-05-30] MEDS: AMIODARONE 100 MG GT SCH (08:41)
[2019-05-30] MEDS: MIRALAX 17 GM POWD.PACK GT SCH (08:41)
[2019-05-30] MEDS: RIVASTIGMINE 13.3 MG TOP SCH (08:42)
[2019-05-30] MEDS: ACIDOPHILUS/BULGARICUS CHEW TAB PO SCH ×2 (08:42→21:09)
[2019-05-30] MEDS: AMANTADINE HCL 100 MG TABLET GT SCH (08:42)
[2019-05-30] MEDS: MODAFINIL 100 MG TABLET GT SCH (08:42)
[2019-05-30] MEDS: FAMOTIDINE 20 MG TABLET GT SCH ×2 (08:42→21:08)
[2019-05-30] MEDS: ASCORBIC ACID 500 MG TABLET GT SCH ×2 (08:42→21:09)
[2019-05-30] MEDS: COD LIVER OIL/ZINC OXIDE OINT 113 GM TUBE TP SCH ×2 (08:43→21:09)
[2019-05-30] MEDS: HYDROGEN PEROXIDE 3% 118 ML BOTTLE TP SCH ×2 (10:10→21:27)
[2019-05-30] MEDS: ALBUTEROL SULFATE 2.5 MG/3 ML NEBU NEB PRN (15:14)
[2019-05-30] MEDS: IPRATROPIUM BROMIDE 0.5 MG/2.5 ML NEBU NEB PRN (15:14)
[2019-05-30] MEDS: TERIPARATIDE SQ SCH (20:12)
[2019-05-30 20:50] VITALS: BP 115/71
[2019-05-30] MEDS: BACLOFEN 10 MG TABLET GT SCH (21:08)
[2019-05-30] MEDS: AZILECT 1 MG TAB GT SCH (21:08)
[2019-05-30] MEDS: ATORVASTATIN 40 MG TABLET GT SCH (21:08)
[2019-05-30] MEDS: THIAMINE HCL 100 MG TABLET GT SCH (21:09)
[2019-05-30] MEDS: RIVAROXABAN 15 MG TABLET GT SCH (21:19)
[2019-05-31] MEDS: BLOOD SUGAR DIAGNOSTIC 1 EACH STRIP VI SCH ×4 (00:04→16:05)
[2019-05-31] MEDS: CARBIDOPA/LEVODOPA 25-250MG TABLET GT SCH ×6 (00:04→19:27)
[2019-05-31] MEDS: GLUCERNA SHAKE 237 ML CAN GT SCH ×6 (01:21→21:24)
[2019-05-31] MEDS: ENTACAPONE 200 MG TABLET GT SCH ×6 (01:21→20:42)
[2019-05-31] MEDS: CHOLECALCIFEROL 1,000 UNIT TABLET GT SCH (06:01)
[2019-05-31] MEDS: LEVOTHYROXINE SODIUM 100 MCG TABLET GT SCH (06:01)
[2019-05-31] MEDS: BETHANECHOL CHLORIDE 25 MG TABLET GT SCH ×3 (06:01→21:24)
[2019-05-31] MEDS: CALCIUM CITRA-VITAMIN D 315 MG-250 UNITS TABLET GT SCH (06:01)
[2019-05-31] MEDS: PROTEIN SUPPLEMENT (PROSTAT) 30 ML LIQUID GT SCH (06:01)
[2019-05-31] MEDS: MAGNESIUM OXIDE 250 MG TABLET GT SCH (06:01)
[2019-05-31] MEDS: INSULIN REGULAR, HUMAN 300 UNIT/3 ML VIAL SQ PRN ×3 (07:05→16:05)
[2019-05-31 08:00] VITALS: BP 129/74
[2019-05-31] MEDS: HYDROGEN PEROXIDE 3% 118 ML BOTTLE TP SCH ×2 (08:07→21:00)
[2019-05-31] MEDS: ASCORBIC ACID 500 MG TABLET GT SCH ×2 (08:38→20:42)
[2019-05-31] MEDS: CRANBERRY 450 MG GT SCH (08:38)
[2019-05-31] MEDS: AMANTADINE HCL 100 MG TABLET GT SCH (08:38)
[2019-05-31] MEDS: LEVETIRACETAM 500 MG/5 ML LIQUID UDC GT SCH ×2 (08:38→20:41)
[2019-05-31] MEDS: DOCUSATE SODIUM 100 MG/10 ML LIQUID UDC GT SCH ×2 (08:38→20:41)
[2019-05-31] MEDS: RIVASTIGMINE 13.3 MG TOP SCH (08:38)
[2019-05-31] MEDS: ACIDOPHILUS/BULGARICUS CHEW TAB PO SCH ×2 (08:38→20:42)
[2019-05-31] MEDS: MIRALAX 17 GM POWD.PACK GT SCH (08:38)
[2019-05-31] MEDS: COD LIVER OIL/ZINC OXIDE OINT 113 GM TUBE TP SCH ×2 (08:38→20:42)
[2019-05-31] MEDS: FAMOTIDINE 20 MG TABLET GT SCH ×2 (08:38→20:41)
[2019-05-31] MEDS: GLIMEPIRIDE 1 MG GT SCH (08:38)
[2019-05-31] MEDS: MEMANTINE HCL 10 MG TABLET GT SCH ×2 (08:38→16:09)
[2019-05-31] MEDS: AMIODARONE 100 MG GT SCH (08:38)
[2019-05-31] MEDS: MODAFINIL 100 MG TABLET GT SCH (08:38)
[2019-05-31] MEDS: IPRATROPIUM BROMIDE 0.5 MG/2.5 ML NEBU NEB PRN (14:58)
[2019-05-31] MEDS: ALBUTEROL SULFATE 2.5 MG/3 ML NEBU NEB PRN (14:58)
[2019-05-31 20:20] VITALS: BP 114/55
[2019-05-31] MEDS: THIAMINE HCL 100 MG TABLET GT SCH (20:41)
[2019-05-31] MEDS: AZILECT 1 MG TAB GT SCH (20:41)
[2019-05-31] MEDS: BACLOFEN 10 MG TABLET GT SCH (20:41)
[2019-05-31] MEDS: ATORVASTATIN 40 MG TABLET GT SCH (20:41)
[2019-05-31] MEDS: TERIPARATIDE SQ SCH (20:42)
[2019-05-31] MEDS: RIVAROXABAN 15 MG TABLET GT SCH (20:43)
[2019-06-01] MEDS: CARBIDOPA/LEVODOPA 25-250MG TABLET GT SCH ×7 (00:04→22:50)
[2019-06-01] MEDS: BLOOD SUGAR DIAGNOSTIC 1 EACH STRIP VI SCH ×5 (00:08→23:13)
[2019-06-01] MEDS: INSULIN REGULAR, HUMAN 300 UNIT/3 ML VIAL SQ PRN ×5 (00:12→23:15)
[2019-06-01] MEDS: ENTACAPONE 200 MG TABLET GT SCH ×6 (01:36→20:32)
[2019-06-01] MEDS: GLUCERNA SHAKE 237 ML CAN GT SCH ×6 (01:36→21:40)
[2019-06-01] MEDS: CALCIUM CITRA-VITAMIN D 315 MG-250 UNITS TABLET GT SCH (05:28)
[2019-06-01] MEDS: CHOLECALCIFEROL 1,000 UNIT TABLET GT SCH (05:28)
[2019-06-01] MEDS: MAGNESIUM OXIDE 250 MG TABLET GT SCH (05:28)
[2019-06-01] MEDS: BETHANECHOL CHLORIDE 25 MG TABLET GT SCH ×3 (05:28→21:40)
[2019-06-01] MEDS: MULTIVIT, IRON, MIN NO. 8, FA TABLET GT SCH (05:28)
[2019-06-01] MEDS: LEVOTHYROXINE SODIUM 100 MCG TABLET GT SCH (05:28)
[2019-06-01] MEDS: PROTEIN SUPPLEMENT (PROSTAT) 30 ML LIQUID GT SCH (05:28)
[2019-06-01 08:30] VITALS: BP 131/77
[2019-06-01] MEDS: LEVETIRACETAM 500 MG/5 ML LIQUID UDC GT SCH ×2 (08:46→20:30)
[2019-06-01] MEDS: DOCUSATE SODIUM 100 MG/10 ML LIQUID UDC GT SCH ×2 (08:46→20:30)
[2019-06-01] MEDS: CRANBERRY 450 MG GT SCH (08:46)
[2019-06-01] MEDS: MEMANTINE HCL 10 MG TABLET GT SCH ×2 (08:46→16:10)
[2019-06-01] MEDS: MIRALAX 17 GM POWD.PACK GT SCH (08:46)
[2019-06-01] MEDS: AMIODARONE 100 MG GT SCH (08:46)
[2019-06-01] MEDS: RIVASTIGMINE 13.3 MG TOP SCH (08:46)
[2019-06-01] MEDS: GLIMEPIRIDE 1 MG GT SCH (08:46)
[2019-06-01] MEDS: ASCORBIC ACID 500 MG TABLET GT SCH ×2 (08:46→20:30)
[2019-06-01] MEDS: FAMOTIDINE 20 MG TABLET GT SCH ×2 (08:46→20:30)
[2019-06-01] MEDS: AMANTADINE HCL 100 MG TABLET GT SCH (08:46)
[2019-06-01] MEDS: ACIDOPHILUS/BULGARICUS CHEW TAB PO SCH ×2 (08:46→20:31)
[2019-06-01] MEDS: COD LIVER OIL/ZINC OXIDE OINT 113 GM TUBE TP SCH ×2 (08:46→20:31)
[2019-06-01] MEDS ORDERED: MODAFINIL 100 MG TABLET PO ONE ×2 (09:00)
[2019-06-01] MEDS: MODAFINIL 100 MG TABLET GT SCH (09:05)
[2019-06-01] MEDS: HYDROGEN PEROXIDE 3% 118 ML BOTTLE TP SCH ×2 (10:10→20:48)
[2019-06-01] MEDS: IPRATROPIUM BROMIDE 0.5 MG/2.5 ML NEBU NEB PRN (14:45)
[2019-06-01] MEDS: ALBUTEROL SULFATE 2.5 MG/3 ML NEBU NEB PRN (14:45)
[2019-06-01] MEDS: ATORVASTATIN 40 MG TABLET GT SCH (20:30)
[2019-06-01] MEDS: AZILECT 1 MG TAB GT SCH (20:30)
[2019-06-01] MEDS: THIAMINE HCL 100 MG TABLET GT SCH (20:30)
[2019-06-01] MEDS: BACLOFEN 10 MG TABLET GT SCH (20:30)
[2019-06-01] MEDS: RIVAROXABAN 15 MG TABLET GT SCH (20:31)
[2019-06-01] MEDS: TERIPARATIDE SQ SCH (20:31)
[2019-06-01 20:43] VITALS: BP 99/60
[2019-06-02] MEDS: ENTACAPONE 200 MG TABLET GT SCH ×6 (01:30→21:57)
[2019-06-02] MEDS: GLUCERNA SHAKE 237 ML CAN GT SCH ×6 (02:00→21:57)
[2019-06-02] MEDS: CARBIDOPA/LEVODOPA 25-250MG TABLET GT SCH ×5 (03:30→19:53)
[2019-06-02] MEDS: CALCIUM CITRA-VITAMIN D 315 MG-250 UNITS TABLET GT SCH (05:13)
[2019-06-02] MEDS: MAGNESIUM OXIDE 250 MG TABLET GT SCH (05:13)
[2019-06-02] MEDS: PROTEIN SUPPLEMENT (PROSTAT) 30 ML LIQUID GT SCH (05:13)
[2019-06-02] MEDS: CHOLECALCIFEROL 1,000 UNIT TABLET GT SCH (05:15)
[2019-06-02] MEDS: LEVOTHYROXINE SODIUM 100 MCG TABLET GT SCH (05:15)
[2019-06-02] MEDS: BETHANECHOL CHLORIDE 25 MG TABLET GT SCH ×3 (05:15→21:57)
[2019-06-02 08:00] VITALS: BP 102/75
[2019-06-02] MEDS ORDERED: MODAFINIL 100 MG TABLET PO ONE ×2 (08:00)
[2019-06-02] MEDS: MODAFINIL 100 MG TABLET GT SCH (08:08)
[2019-06-02] MEDS: LEVETIRACETAM 500 MG/5 ML LIQUID UDC GT SCH ×2 (08:08→21:57)
[2019-06-02] MEDS: BLOOD SUGAR DIAGNOSTIC 1 EACH STRIP VI SCH ×3 (08:08→16:03)
[2019-06-02] MEDS: CRANBERRY 450 MG GT SCH (08:08)
[2019-06-02] MEDS: DOCUSATE SODIUM 100 MG/10 ML LIQUID UDC GT SCH ×2 (08:08→21:57)
[2019-06-02] MEDS: GLIMEPIRIDE 1 MG GT SCH (08:08)
[2019-06-02] MEDS: ACIDOPHILUS/BULGARICUS CHEW TAB PO SCH ×2 (08:09→21:57)
[2019-06-02] MEDS: FAMOTIDINE 20 MG TABLET GT SCH ×2 (08:09→21:57)
[2019-06-02] MEDS: MIRALAX 17 GM POWD.PACK GT SCH (08:09)
[2019-06-02] MEDS: AMANTADINE HCL 100 MG TABLET GT SCH (08:09)
[2019-06-02] MEDS: MEMANTINE HCL 10 MG TABLET GT SCH ×2 (08:09→17:55)
[2019-06-02] MEDS: ASCORBIC ACID 500 MG TABLET GT SCH ×2 (08:09→21:57)
[2019-06-02] MEDS: COD LIVER OIL/ZINC OXIDE OINT 113 GM TUBE TP SCH ×2 (08:09→21:57)
[2019-06-02] MEDS: RIVASTIGMINE 13.3 MG TOP SCH (08:09)
[2019-06-02] MEDS: AMIODARONE 100 MG GT SCH (08:09)
[2019-06-02] MEDS: INSULIN REGULAR, HUMAN 300 UNIT/3 ML VIAL SQ PRN ×2 (08:25→11:24)
[2019-06-02] MEDS: HYDROGEN PEROXIDE 3% 118 ML BOTTLE TP SCH ×2 (09:00→21:09)
[2019-06-02] MEDS: IPRATROPIUM BROMIDE 0.5 MG/2.5 ML NEBU NEB PRN (13:43)
[2019-06-02] MEDS: ALBUTEROL SULFATE 2.5 MG/3 ML NEBU NEB PRN (13:44)
[2019-06-02 20:38] VITALS: BP 114/51
[2019-06-02] MEDS: TERIPARATIDE SQ SCH (21:57)
[2019-06-02] MEDS: THIAMINE HCL 100 MG TABLET GT SCH (21:57)
[2019-06-02] MEDS: AZILECT 1 MG TAB GT SCH (21:57)
[2019-06-02] MEDS: ATORVASTATIN 40 MG TABLET GT SCH (21:57)
[2019-06-02] MEDS: BACLOFEN 10 MG TABLET GT SCH (21:57)
[2019-06-02] MEDS: RIVAROXABAN 15 MG TABLET GT SCH (21:59)
[2019-06-03] MEDS: CARBIDOPA/LEVODOPA 25-250MG TABLET GT SCH ×6 (00:27→19:30)
[2019-06-03] MEDS: BLOOD SUGAR DIAGNOSTIC 1 EACH STRIP VI SCH ×4 (00:35→15:50)
[2019-06-03] MEDS: INSULIN REGULAR, HUMAN 300 UNIT/3 ML VIAL SQ PRN ×3 (00:44→11:33)
[2019-06-03] MEDS: GLUCERNA SHAKE 237 ML CAN GT SCH ×6 (02:19→21:27)
[2019-06-03] MEDS: ENTACAPONE 200 MG TABLET GT SCH ×6 (02:19→21:27)
[2019-06-03] MEDS: PROTEIN SUPPLEMENT (PROSTAT) 30 ML LIQUID GT SCH (06:05)
[2019-06-03] MEDS: CALCIUM CITRA-VITAMIN D 315 MG-250 UNITS TABLET GT SCH (06:05)
[2019-06-03] MEDS: MAGNESIUM OXIDE 250 MG TABLET GT SCH (06:05)
[2019-06-03] MEDS: MULTIVIT, IRON, MIN NO. 8, FA TABLET GT SCH (06:05)
[2019-06-03] MEDS: BETHANECHOL CHLORIDE 25 MG TABLET GT SCH ×3 (06:05→21:27)
[2019-06-03] MEDS: LEVOTHYROXINE SODIUM 100 MCG TABLET GT SCH (06:05)
[2019-06-03] MEDS: CHOLECALCIFEROL 1,000 UNIT TABLET GT SCH (06:05)
[2019-06-03 08:00] VITALS: BP 119/62
[2019-06-03] MEDS: GLIMEPIRIDE 1 MG GT SCH (08:18)
[2019-06-03] MEDS: DOCUSATE SODIUM 100 MG/10 ML LIQUID UDC GT SCH ×2 (08:19→21:23)
[2019-06-03] MEDS: LEVETIRACETAM 500 MG/5 ML LIQUID UDC GT SCH ×2 (08:19→21:24)
[2019-06-03] MEDS: MEMANTINE HCL 10 MG TABLET GT SCH ×2 (08:20→16:23)
[2019-06-03] MEDS: MIRALAX 17 GM POWD.PACK GT SCH (08:20)
[2019-06-03] MEDS: CRANBERRY 450 MG GT SCH (08:20)
[2019-06-03] MEDS: AMIODARONE 100 MG GT SCH (08:20)
[2019-06-03] MEDS ORDERED: MODAFINIL 100 MG TABLET PO ONE ×2 (08:20)
[2019-06-03] MEDS: FAMOTIDINE 20 MG TABLET GT SCH ×2 (08:21→21:26)
[2019-06-03] MEDS: ASCORBIC ACID 500 MG TABLET GT SCH ×2 (08:22→21:26)
[2019-06-03] MEDS: MODAFINIL 100 MG TABLET GT SCH (08:22)
[2019-06-03] MEDS: ACIDOPHILUS/BULGARICUS CHEW TAB PO SCH ×2 (08:22→21:26)
[2019-06-03] MEDS: AMANTADINE HCL 100 MG TABLET GT SCH (08:22)
[2019-06-03] MEDS: RIVASTIGMINE 13.3 MG TOP SCH (08:22)
[2019-06-03] MEDS: COD LIVER OIL/ZINC OXIDE OINT 113 GM TUBE TP SCH ×2 (08:23→21:27)
[2019-06-03] MEDS: HYDROGEN PEROXIDE 3% 118 ML BOTTLE TP SCH ×2 (09:00→21:13)
--- NOTE | 2019-06-03 15:02 | NUR ---
INTERDISCIPLINARY PLAN OF CARE CONFERENCE was held today. Patient's son Alen was invited to the meeting but was not able to attend the meeting. Dr. Ramires and the Interdisciplinary Team reviewed the current plan of care in detail. RN reported on patient's current medical condition. No major changes in condition were reported. See RN IDT conference notes. See also all other disciplines IDT notes and physician's progress notes for additional details.
--- NOTE | 2019-06-03 17:44 | NUR ---
Pharmacy Update from Today's 06/03/18 IDT Meeting: VS: Temp 98.2 BP 119/62 HR 77 LABS: (from 03/20/19, no new labs) Wbc 8.1 H/H 10.8/33 Plt 395 Na 133 K 5.2 Cl 97 CO2 31 BUN/SCr 23/0.7 BS 179 Ca 9.0 Phos 3.5 Mg 2.3 MEDICATION USE REVIEWED: > Pt on Keppra 400mg q12hr for seizure prophylaxis; last CrCl 52.8 ml/min. Renal function ok per dose, no seizure activity reported > On Xarelto 15mg daily (h/o afib, stroke; dvt prophylaxis); last plt 395 > Pt on Provigil 200mg daily for promoting mental alertness - per family neurologist Dr. Grijalva and Dr. Mendoza clinically contraindicated for persistent fatigue/daytime sleepiness (see MD note 12/23/17). Hours of sleep during day range 2-4hrs, improved from baseline per MD/RNs/family. Movement of extremities to verbal stimuli and eye tracking due to verbal commands present. No ADRs noted > Pt on Synthroid 100mcg daily since 08/02/18. Last level 3.312 (0.35-3.74) on 02/21/19, within therapeutic range. > PRN MED USAGE: (Dec) Tylenol for pain used x 0 Tylenol for temp used x 0 Dulcolax used x 0 Diltiazem PRN used x 1 NEW ORDERS NOTED: > NA Patient reviewed and discussed in depth at IDT, with no medication issues or concerns noted at this time. No further recommendations per rx at this time as pt remains stable on current regimen. Will continue to monitor
[2019-06-03] MEDS: BACLOFEN 10 MG TABLET GT SCH (21:24)
[2019-06-03] MEDS: ATORVASTATIN 40 MG TABLET GT SCH (21:26)
[2019-06-03] MEDS: THIAMINE HCL 100 MG TABLET GT SCH (21:26)
[2019-06-03] MEDS: AZILECT 1 MG TAB GT SCH (21:26)
[2019-06-03] MEDS: TERIPARATIDE SQ SCH (21:27)
[2019-06-03] MEDS: RIVAROXABAN 15 MG TABLET GT SCH (21:38)
[2019-06-03 23:40] VITALS: BP 102/54
[2019-06-04] MEDS: BLOOD SUGAR DIAGNOSTIC 1 EACH STRIP VI SCH ×4 (00:27→16:03)
[2019-06-04] MEDS: CARBIDOPA/LEVODOPA 25-250MG TABLET GT SCH ×7 (00:27→23:30)
[2019-06-04] MEDS: INSULIN REGULAR, HUMAN 300 UNIT/3 ML VIAL SQ PRN ×3 (00:30→11:49)
[2019-06-04] MEDS: ENTACAPONE 200 MG TABLET GT SCH ×6 (01:30→22:20)
[2019-06-04] MEDS: GLUCERNA SHAKE 237 ML CAN GT SCH ×6 (02:00→22:20)
[2019-06-04] MEDS: CALCIUM CITRA-VITAMIN D 315 MG-250 UNITS TABLET GT SCH (06:09)
[2019-06-04] MEDS: LEVOTHYROXINE SODIUM 100 MCG TABLET GT SCH (06:09)
[2019-06-04] MEDS: PROTEIN SUPPLEMENT (PROSTAT) 30 ML LIQUID GT SCH (06:09)
[2019-06-04] MEDS: BETHANECHOL CHLORIDE 25 MG TABLET GT SCH ×3 (06:09→22:20)
[2019-06-04] MEDS: MAGNESIUM OXIDE 250 MG TABLET GT SCH (06:09)
[2019-06-04] MEDS: CHOLECALCIFEROL 1,000 UNIT TABLET GT SCH (06:09)
[2019-06-04 08:00] VITALS: BP 157/88
[2019-06-04] MEDS ORDERED: MODAFINIL 100 MG TABLET PO ONE ×2 (08:20)
[2019-06-04] MEDS: GLIMEPIRIDE 1 MG GT SCH (08:20)
[2019-06-04] MEDS: DOCUSATE SODIUM 100 MG/10 ML LIQUID UDC GT SCH ×2 (08:21→20:30)
[2019-06-04] MEDS: LEVETIRACETAM 500 MG/5 ML LIQUID UDC GT SCH ×2 (08:21→20:30)
[2019-06-04] MEDS: CRANBERRY 450 MG GT SCH (08:22)
[2019-06-04] MEDS: MIRALAX 17 GM POWD.PACK GT SCH (08:22)
[2019-06-04] MEDS: AMANTADINE HCL 100 MG TABLET GT SCH (08:23)
[2019-06-04] MEDS: ACIDOPHILUS/BULGARICUS CHEW TAB PO SCH ×2 (08:23→20:31)
[2019-06-04] MEDS: FAMOTIDINE 20 MG TABLET GT SCH ×2 (08:23→20:30)
[2019-06-04] MEDS: AMIODARONE 100 MG GT SCH (08:23)
[2019-06-04] MEDS: MODAFINIL 100 MG TABLET GT SCH (08:23)
[2019-06-04] MEDS: ASCORBIC ACID 500 MG TABLET GT SCH ×2 (08:23→20:31)
[2019-06-04] MEDS: MEMANTINE HCL 10 MG TABLET GT SCH ×2 (08:23→16:03)
[2019-06-04] MEDS: COD LIVER OIL/ZINC OXIDE OINT 113 GM TUBE TP SCH ×2 (08:26→20:37)
[2019-06-04] MEDS: RIVASTIGMINE 13.3 MG TOP SCH (08:26)
[2019-06-04] MEDS: HYDROGEN PEROXIDE 3% 118 ML BOTTLE TP SCH ×2 (09:00→20:59)
[2019-06-04 20:07] VITALS: BP 97/55
[2019-06-04] MEDS: BACLOFEN 10 MG TABLET GT SCH (20:30)
[2019-06-04] MEDS: THIAMINE HCL 100 MG TABLET GT SCH (20:30)
[2019-06-04] MEDS: ATORVASTATIN 40 MG TABLET GT SCH (20:30)
[2019-06-04] MEDS: AZILECT 1 MG TAB GT SCH (20:30)
[2019-06-04] MEDS: RIVAROXABAN 15 MG TABLET GT SCH (20:31)
[2019-06-04] MEDS: TERIPARATIDE SQ SCH (20:35)
[2019-06-05] MEDS: INSULIN REGULAR, HUMAN 300 UNIT/3 ML VIAL SQ PRN ×3 (00:51→12:08)
[2019-06-05] MEDS: BLOOD SUGAR DIAGNOSTIC 1 EACH STRIP VI SCH ×4 (00:51→16:05)
[2019-06-05] MEDS: ENTACAPONE 200 MG TABLET GT SCH ×6 (01:51→21:08)
[2019-06-05] MEDS: GLUCERNA SHAKE 237 ML CAN GT SCH ×6 (01:51→21:08)
[2019-06-05] MEDS: CARBIDOPA/LEVODOPA 25-250MG TABLET GT SCH ×5 (03:30→19:30)
[2019-06-05] MEDS: BETHANECHOL CHLORIDE 25 MG TABLET GT SCH ×3 (05:04→21:08)
[2019-06-05] MEDS: MAGNESIUM OXIDE 250 MG TABLET GT SCH (05:04)
[2019-06-05] MEDS: CALCIUM CITRA-VITAMIN D 315 MG-250 UNITS TABLET GT SCH (05:04)
[2019-06-05] MEDS: CHOLECALCIFEROL 1,000 UNIT TABLET GT SCH (05:04)
[2019-06-05] MEDS: MULTIVIT, IRON, MIN NO. 8, FA TABLET GT SCH (05:04)
[2019-06-05] MEDS: PROTEIN SUPPLEMENT (PROSTAT) 30 ML LIQUID GT SCH (05:04)
[2019-06-05] MEDS: LEVOTHYROXINE SODIUM 100 MCG TABLET GT SCH (05:04)
[2019-06-05] MEDS ORDERED: MODAFINIL 100 MG TABLET PO ONE ×2 (08:00)
[2019-06-05] MEDS: ACIDOPHILUS/BULGARICUS CHEW TAB PO SCH ×2 (08:07→21:08)
[2019-06-05] MEDS: LEVETIRACETAM 500 MG/5 ML LIQUID UDC GT SCH ×2 (08:07→21:07)
[2019-06-05] MEDS: CRANBERRY 450 MG GT SCH (08:07)
[2019-06-05] MEDS: MEMANTINE HCL 10 MG TABLET GT SCH ×2 (08:07→16:05)
[2019-06-05] MEDS: MIRALAX 17 GM POWD.PACK GT SCH (08:07)
[2019-06-05] MEDS: FAMOTIDINE 20 MG TABLET GT SCH ×2 (08:07→21:08)
[2019-06-05] MEDS: COD LIVER OIL/ZINC OXIDE OINT 113 GM TUBE TP SCH ×2 (08:07→21:08)
[2019-06-05] MEDS: MODAFINIL 100 MG TABLET GT SCH (08:07)
[2019-06-05] MEDS: RIVASTIGMINE 13.3 MG TOP SCH (08:07)
[2019-06-05] MEDS: DOCUSATE SODIUM 100 MG/10 ML LIQUID UDC GT SCH ×2 (08:07→21:06)
[2019-06-05] MEDS: AMIODARONE 100 MG GT SCH (08:07)
[2019-06-05] MEDS: ASCORBIC ACID 500 MG TABLET GT SCH ×2 (08:07→21:08)
[2019-06-05] MEDS: AMANTADINE HCL 100 MG TABLET GT SCH (08:07)
[2019-06-05] MEDS: GLIMEPIRIDE 1 MG GT SCH (08:07)
[2019-06-05 08:30] VITALS: BP 133/80
[2019-06-05] MEDS: HYDROGEN PEROXIDE 3% 118 ML BOTTLE TP SCH ×2 (09:47→20:51)
[2019-06-05] MEDS: ALBUTEROL SULFATE 2.5 MG/3 ML NEBU NEB PRN (13:46)
[2019-06-05] MEDS: IPRATROPIUM BROMIDE 0.5 MG/2.5 ML NEBU NEB PRN (13:46)
[2019-06-05 20:53] VITALS: BP 105/46
[2019-06-05] MEDS: ATORVASTATIN 40 MG TABLET GT SCH (21:07)
[2019-06-05] MEDS: BACLOFEN 10 MG TABLET GT SCH (21:07)
[2019-06-05] MEDS: AZILECT 1 MG TAB GT SCH (21:07)
[2019-06-05] MEDS: TERIPARATIDE SQ SCH (21:08)
[2019-06-05] MEDS: THIAMINE HCL 100 MG TABLET GT SCH (21:08)
[2019-06-05] MEDS: RIVAROXABAN 15 MG TABLET GT SCH (21:25)
[2019-06-06] MEDS: BLOOD SUGAR DIAGNOSTIC 1 EACH STRIP VI SCH ×5 (00:03→23:53)
[2019-06-06] MEDS: CARBIDOPA/LEVODOPA 25-250MG TABLET GT SCH ×7 (00:03→23:53)
[2019-06-06] MEDS: INSULIN REGULAR, HUMAN 300 UNIT/3 ML VIAL SQ PRN ×3 (00:13→23:57)
[2019-06-06] MEDS: ENTACAPONE 200 MG TABLET GT SCH ×6 (01:30→21:20)
[2019-06-06] MEDS: GLUCERNA SHAKE 237 ML CAN GT SCH ×6 (02:00→21:20)
[2019-06-06] MEDS: CALCIUM CITRA-VITAMIN D 315 MG-250 UNITS TABLET GT SCH (05:14)
[2019-06-06] MEDS: MAGNESIUM OXIDE 250 MG TABLET GT SCH (05:14)
[2019-06-06] MEDS: PROTEIN SUPPLEMENT (PROSTAT) 30 ML LIQUID GT SCH (05:15)
[2019-06-06] MEDS: LEVOTHYROXINE SODIUM 100 MCG TABLET GT SCH (05:16)
[2019-06-06] MEDS: BETHANECHOL CHLORIDE 25 MG TABLET GT SCH ×3 (05:16→21:20)
[2019-06-06] MEDS: CHOLECALCIFEROL 1,000 UNIT TABLET GT SCH (05:16)
[2019-06-06] MEDS: GLIMEPIRIDE 1 MG GT SCH (07:57)
[2019-06-06 08:04] VITALS: BP 130/53
[2019-06-06] MEDS: DOCUSATE SODIUM 100 MG/10 ML LIQUID UDC GT SCH ×2 (08:13→21:22)
[2019-06-06] MEDS: RIVASTIGMINE 13.3 MG TOP SCH (08:13)
[2019-06-06] MEDS: AMIODARONE 100 MG GT SCH (08:13)
[2019-06-06] MEDS: ASCORBIC ACID 500 MG TABLET GT SCH ×2 (08:13→21:19)
[2019-06-06] MEDS: AMANTADINE HCL 100 MG TABLET GT SCH (08:13)
[2019-06-06] MEDS: MIRALAX 17 GM POWD.PACK GT SCH (08:13)
[2019-06-06] MEDS: CRANBERRY 450 MG GT SCH (08:13)
[2019-06-06] MEDS: ACIDOPHILUS/BULGARICUS CHEW TAB PO SCH ×2 (08:13→21:19)
[2019-06-06] MEDS: MEMANTINE HCL 10 MG TABLET GT SCH ×2 (08:13→17:31)
[2019-06-06] MEDS: LEVETIRACETAM 500 MG/5 ML LIQUID UDC GT SCH ×2 (08:13→21:22)
[2019-06-06] MEDS: MODAFINIL 100 MG TABLET GT SCH (08:13)
[2019-06-06] MEDS: COD LIVER OIL/ZINC OXIDE OINT 113 GM TUBE TP SCH ×2 (08:13→21:20)
[2019-06-06] MEDS: FAMOTIDINE 20 MG TABLET GT SCH ×2 (08:13→21:19)
[2019-06-06] MEDS: HYDROGEN PEROXIDE 3% 118 ML BOTTLE TP SCH ×2 (09:00→20:51)
[2019-06-06 20:48] VITALS: BP 114/51
[2019-06-06] MEDS: BACLOFEN 10 MG TABLET GT SCH (21:19)
[2019-06-06] MEDS: THIAMINE HCL 100 MG TABLET GT SCH (21:19)
[2019-06-06] MEDS: ATORVASTATIN 40 MG TABLET GT SCH (21:19)
[2019-06-06] MEDS: AZILECT 1 MG TAB GT SCH (21:19)
[2019-06-06] MEDS: TERIPARATIDE SQ SCH (21:20)
[2019-06-06] MEDS: RIVAROXABAN 15 MG TABLET GT SCH (21:20)
[2019-06-07] MEDS: GLUCERNA SHAKE 237 ML CAN GT SCH ×6 (02:00→21:32)
[2019-06-07] MEDS: ENTACAPONE 200 MG TABLET GT SCH ×6 (02:00→21:32)
[2019-06-07] MEDS: CARBIDOPA/LEVODOPA 25-250MG TABLET GT SCH ×6 (03:30→23:30)
[2019-06-07] MEDS: BETHANECHOL CHLORIDE 25 MG TABLET GT SCH ×3 (05:05→21:32)
[2019-06-07] MEDS: MAGNESIUM OXIDE 250 MG TABLET GT SCH (05:05)
[2019-06-07] MEDS: LEVOTHYROXINE SODIUM 100 MCG TABLET GT SCH (05:05)
[2019-06-07] MEDS: CALCIUM CITRA-VITAMIN D 315 MG-250 UNITS TABLET GT SCH (05:05)
[2019-06-07] MEDS: CHOLECALCIFEROL 1,000 UNIT TABLET GT SCH (05:05)
[2019-06-07] MEDS: MULTIVIT, IRON, MIN NO. 8, FA TABLET GT SCH (05:05)
[2019-06-07] MEDS: PROTEIN SUPPLEMENT (PROSTAT) 30 ML LIQUID GT SCH (05:05)
[2019-06-07 08:04] VITALS: BP 130/78
[2019-06-07] MEDS: DOCUSATE SODIUM 100 MG/10 ML LIQUID UDC GT SCH ×2 (08:12→21:30)
[2019-06-07] MEDS: BLOOD SUGAR DIAGNOSTIC 1 EACH STRIP VI SCH ×3 (08:12→16:06)
[2019-06-07] MEDS: CRANBERRY 450 MG GT SCH (08:12)
[2019-06-07] MEDS: LEVETIRACETAM 500 MG/5 ML LIQUID UDC GT SCH ×2 (08:12→21:30)
[2019-06-07] MEDS: GLIMEPIRIDE 1 MG GT SCH (08:12)
[2019-06-07] MEDS: MEMANTINE HCL 10 MG TABLET GT SCH ×2 (08:13→16:10)
[2019-06-07] MEDS: MODAFINIL 100 MG TABLET GT SCH (08:13)
[2019-06-07] MEDS: MIRALAX 17 GM POWD.PACK GT SCH (08:13)
[2019-06-07] MEDS: COD LIVER OIL/ZINC OXIDE OINT 113 GM TUBE TP SCH ×2 (08:13→21:32)
[2019-06-07] MEDS: ACIDOPHILUS/BULGARICUS CHEW TAB PO SCH ×2 (08:13→21:31)
[2019-06-07] MEDS: FAMOTIDINE 20 MG TABLET GT SCH ×2 (08:13→21:31)
[2019-06-07] MEDS: ASCORBIC ACID 500 MG TABLET GT SCH ×2 (08:13→21:31)
[2019-06-07] MEDS: AMANTADINE HCL 100 MG TABLET GT SCH (08:13)
[2019-06-07] MEDS: RIVASTIGMINE 13.3 MG TOP SCH (08:13)
[2019-06-07] MEDS: AMIODARONE 100 MG GT SCH (08:13)
[2019-06-07] MEDS: INSULIN REGULAR, HUMAN 300 UNIT/3 ML VIAL SQ PRN ×2 (08:21→11:19)
[2019-06-07] MEDS: HYDROGEN PEROXIDE 3% 118 ML BOTTLE TP SCH ×2 (09:40→21:12)
[2019-06-07] MEDS: IPRATROPIUM BROMIDE 0.5 MG/2.5 ML NEBU NEB PRN (15:03)
[2019-06-07] MEDS: ALBUTEROL SULFATE 2.5 MG/3 ML NEBU NEB PRN (15:03)
[2019-06-07 20:48] VITALS: BP 128/74
[2019-06-07] MEDS: BACLOFEN 10 MG TABLET GT SCH (21:31)
[2019-06-07] MEDS: THIAMINE HCL 100 MG TABLET GT SCH (21:31)
[2019-06-07] MEDS: ATORVASTATIN 40 MG TABLET GT SCH (21:31)
[2019-06-07] MEDS: AZILECT 1 MG TAB GT SCH (21:31)
[2019-06-07] MEDS: TERIPARATIDE SQ SCH (21:32)
[2019-06-07] MEDS: RIVAROXABAN 15 MG TABLET GT SCH (21:32)
[2019-06-08] MEDS: ENTACAPONE 200 MG TABLET GT SCH ×6 (00:59→21:29)
[2019-06-08] MEDS: BLOOD SUGAR DIAGNOSTIC 1 EACH STRIP VI SCH ×5 (00:59→23:17)
[2019-06-08] MEDS: GLUCERNA SHAKE 237 ML CAN GT SCH ×6 (01:36→21:29)
[2019-06-08] MEDS: CARBIDOPA/LEVODOPA 25-250MG TABLET GT SCH ×6 (03:30→23:17)
[2019-06-08] MEDS: CALCIUM CITRA-VITAMIN D 315 MG-250 UNITS TABLET GT SCH (05:06)
[2019-06-08] MEDS: PROTEIN SUPPLEMENT (PROSTAT) 30 ML LIQUID GT SCH (05:06)
[2019-06-08] MEDS: MAGNESIUM OXIDE 250 MG TABLET GT SCH (05:06)
[2019-06-08] MEDS: BETHANECHOL CHLORIDE 25 MG TABLET GT SCH ×3 (05:07→21:29)
[2019-06-08] MEDS: CHOLECALCIFEROL 1,000 UNIT TABLET GT SCH (05:07)
[2019-06-08] MEDS: LEVOTHYROXINE SODIUM 100 MCG TABLET GT SCH (05:07)
[2019-06-08] MEDS: INSULIN REGULAR, HUMAN 300 UNIT/3 ML VIAL SQ PRN ×4 (07:29→23:18)
[2019-06-08] MEDS: GLIMEPIRIDE 1 MG GT SCH (07:29)
[2019-06-08] MEDS: HYDROGEN PEROXIDE 3% 118 ML BOTTLE TP SCH ×2 (08:32→20:58)
[2019-06-08] MEDS: DOCUSATE SODIUM 100 MG/10 ML LIQUID UDC GT SCH ×2 (08:43→21:26)
[2019-06-08] MEDS: CRANBERRY 450 MG GT SCH (08:43)
[2019-06-08] MEDS: MEMANTINE HCL 10 MG TABLET GT SCH ×2 (08:43→17:16)
[2019-06-08] MEDS: MIRALAX 17 GM POWD.PACK GT SCH (08:43)
[2019-06-08] MEDS: LEVETIRACETAM 500 MG/5 ML LIQUID UDC GT SCH ×2 (08:43→21:26)
[2019-06-08] MEDS: AMANTADINE HCL 100 MG TABLET GT SCH (08:44)
[2019-06-08] MEDS: RIVASTIGMINE 13.3 MG TOP SCH (08:44)
[2019-06-08] MEDS: FAMOTIDINE 20 MG TABLET GT SCH ×2 (08:44→21:27)
[2019-06-08] MEDS: ASCORBIC ACID 500 MG TABLET GT SCH ×2 (08:44→21:28)
[2019-06-08] MEDS: MODAFINIL 100 MG TABLET GT SCH (08:44)
[2019-06-08] MEDS: AMIODARONE 100 MG GT SCH (08:44)
[2019-06-08] MEDS: ACIDOPHILUS/BULGARICUS CHEW TAB PO SCH ×2 (08:44→21:28)
[2019-06-08] MEDS: COD LIVER OIL/ZINC OXIDE OINT 113 GM TUBE TP SCH ×2 (08:44→21:29)
[2019-06-08 11:01] VITALS: BP 128/66
[2019-06-08] MEDS: IPRATROPIUM BROMIDE 0.5 MG/2.5 ML NEBU NEB PRN (18:44)
[2019-06-08] MEDS: ALBUTEROL SULFATE 2.5 MG/3 ML NEBU NEB PRN (18:44)
[2019-06-08 21:13] VITALS: BP 123/65
[2019-06-08] MEDS: AZILECT 1 MG TAB GT SCH (21:27)
[2019-06-08] MEDS: BACLOFEN 10 MG TABLET GT SCH (21:27)
[2019-06-08] MEDS: ATORVASTATIN 40 MG TABLET GT SCH (21:27)
[2019-06-08] MEDS: RIVAROXABAN 15 MG TABLET GT SCH (21:28)
[2019-06-08] MEDS: THIAMINE HCL 100 MG TABLET GT SCH (21:28)
[2019-06-08] MEDS: TERIPARATIDE SQ SCH (21:29)
[2019-06-09] MEDS: ENTACAPONE 200 MG TABLET GT SCH ×6 (01:38→21:29)
[2019-06-09] MEDS: GLUCERNA SHAKE 237 ML CAN GT SCH ×6 (01:38→21:29)
[2019-06-09] MEDS: CARBIDOPA/LEVODOPA 25-250MG TABLET GT SCH ×6 (03:30→23:30)
[2019-06-09] MEDS: LEVOTHYROXINE SODIUM 100 MCG TABLET GT SCH (05:33)
[2019-06-09] MEDS: CHOLECALCIFEROL 1,000 UNIT TABLET GT SCH (05:33)
[2019-06-09] MEDS: CALCIUM CITRA-VITAMIN D 315 MG-250 UNITS TABLET GT SCH (05:33)
[2019-06-09] MEDS: MAGNESIUM OXIDE 250 MG TABLET GT SCH (05:33)
[2019-06-09] MEDS: BETHANECHOL CHLORIDE 25 MG TABLET GT SCH ×3 (05:33→21:29)
[2019-06-09] MEDS: PROTEIN SUPPLEMENT (PROSTAT) 30 ML LIQUID GT SCH (05:33)
[2019-06-09] MEDS: MULTIVIT, IRON, MIN NO. 8, FA TABLET GT SCH (05:33)
[2019-06-09] MEDS: BLOOD SUGAR DIAGNOSTIC 1 EACH STRIP VI SCH ×3 (07:30→16:00)
[2019-06-09 08:00] VITALS: BP 118/71
[2019-06-09] MEDS: GLIMEPIRIDE 1 MG GT SCH (08:00)
[2019-06-09] MEDS: HYDROGEN PEROXIDE 3% 118 ML BOTTLE TP SCH ×2 (09:00→21:53)
[2019-06-09] MEDS: DOCUSATE SODIUM 100 MG/10 ML LIQUID UDC GT SCH ×2 (09:10→21:27)
[2019-06-09] MEDS: CRANBERRY 450 MG GT SCH (09:10)
[2019-06-09] MEDS: AMIODARONE 100 MG GT SCH (09:10)
[2019-06-09] MEDS: LEVETIRACETAM 500 MG/5 ML LIQUID UDC GT SCH ×2 (09:10→21:28)
[2019-06-09] MEDS: MIRALAX 17 GM POWD.PACK GT SCH (09:10)
[2019-06-09] MEDS: MEMANTINE HCL 10 MG TABLET GT SCH ×2 (09:10→17:00)
[2019-06-09] MEDS: FAMOTIDINE 20 MG TABLET GT SCH ×2 (09:11→21:28)
[2019-06-09] MEDS: AMANTADINE HCL 100 MG TABLET GT SCH (09:11)
[2019-06-09] MEDS: ASCORBIC ACID 500 MG TABLET GT SCH ×2 (09:11→21:28)
[2019-06-09] MEDS: RIVASTIGMINE 13.3 MG TOP SCH (09:11)
[2019-06-09] MEDS: MODAFINIL 100 MG TABLET GT SCH (09:11)
[2019-06-09] MEDS: COD LIVER OIL/ZINC OXIDE OINT 113 GM TUBE TP SCH ×2 (09:11→21:29)
[2019-06-09] MEDS: ACIDOPHILUS/BULGARICUS CHEW TAB PO SCH ×2 (09:11→21:28)
[2019-06-09] MEDS: INSULIN REGULAR, HUMAN 300 UNIT/3 ML VIAL SQ PRN ×3 (09:19→18:04)
[2019-06-09] MEDS: BACLOFEN 10 MG TABLET GT SCH (21:28)
[2019-06-09] MEDS: RIVAROXABAN 15 MG TABLET GT SCH (21:28)
[2019-06-09] MEDS: ATORVASTATIN 40 MG TABLET GT SCH (21:28)
[2019-06-09] MEDS: THIAMINE HCL 100 MG TABLET GT SCH (21:28)
[2019-06-09] MEDS: AZILECT 1 MG TAB GT SCH (21:28)
[2019-06-09] MEDS: TERIPARATIDE SQ SCH (21:29)
[2019-06-09 22:14] VITALS: BP 128/80
--- NOTE | 2019-06-09 23:29 | NUR ---
Seen and examined by Dr. Swann with new orders for CBC, BMP, magnesiun and phosphorus in am.
[2019-06-10] MEDS: BLOOD SUGAR DIAGNOSTIC 1 EACH STRIP VI SCH ×4 (00:54→16:20)
[2019-06-10] MEDS: INSULIN REGULAR, HUMAN 300 UNIT/3 ML VIAL SQ PRN ×3 (00:56→16:20)
[2019-06-10] MEDS: ENTACAPONE 200 MG TABLET GT SCH ×6 (01:30→21:33)
[2019-06-10] MEDS: CARBIDOPA/LEVODOPA 25-250MG TABLET GT SCH ×5 (02:48→19:30)
[2019-06-10] MEDS: GLUCERNA SHAKE 237 ML CAN GT SCH ×6 (02:48→21:33)
[2019-06-10] MEDS: CHOLECALCIFEROL 1,000 UNIT TABLET GT SCH (05:02)
[2019-06-10] MEDS: MAGNESIUM OXIDE 250 MG TABLET GT SCH (05:02)
[2019-06-10] MEDS: CALCIUM CITRA-VITAMIN D 315 MG-250 UNITS TABLET GT SCH (05:02)
[2019-06-10] MEDS: LEVOTHYROXINE SODIUM 100 MCG TABLET GT SCH (05:02)
[2019-06-10] MEDS: PROTEIN SUPPLEMENT (PROSTAT) 30 ML LIQUID GT SCH (05:02)
[2019-06-10] MEDS: BETHANECHOL CHLORIDE 25 MG TABLET GT SCH ×3 (05:02→21:33)
[2019-06-10 08:00] VITALS: BP 134/85
[2019-06-10] MEDS: AMIODARONE 100 MG GT SCH (08:46)
[2019-06-10] MEDS: LEVETIRACETAM 500 MG/5 ML LIQUID UDC GT SCH ×2 (08:46→21:31)
[2019-06-10] MEDS: DOCUSATE SODIUM 100 MG/10 ML LIQUID UDC GT SCH ×2 (08:46→21:31)
[2019-06-10] MEDS: FAMOTIDINE 20 MG TABLET GT SCH ×2 (08:46→21:32)
[2019-06-10] MEDS: MIRALAX 17 GM POWD.PACK GT SCH (08:46)
[2019-06-10] MEDS: MEMANTINE HCL 10 MG TABLET GT SCH ×2 (08:46→17:40)
[2019-06-10] MEDS: GLIMEPIRIDE 1 MG GT SCH (08:46)
[2019-06-10] MEDS: CRANBERRY 450 MG GT SCH (08:46)
[2019-06-10] MEDS: AMANTADINE HCL 100 MG TABLET GT SCH (08:47)
[2019-06-10] MEDS: ASCORBIC ACID 500 MG TABLET GT SCH ×2 (08:47→21:32)
[2019-06-10] MEDS: ACIDOPHILUS/BULGARICUS CHEW TAB PO SCH ×2 (08:47→21:33)
[2019-06-10] MEDS: MODAFINIL 100 MG TABLET GT SCH (08:47)
[2019-06-10] MEDS: RIVASTIGMINE 13.3 MG TOP SCH (08:47)
[2019-06-10] MEDS: COD LIVER OIL/ZINC OXIDE OINT 113 GM TUBE TP SCH ×2 (08:47→21:33)
[2019-06-10 08:50] LABS: CREATININE 0.6 mg/dL (0.6-1.3); PHOSPHOROUS 3.3 mg/dL (2.5-4.9); POTASSIUM 4.7 mmol/L (3.5-5.1)
[2019-06-10] MEDS: HYDROGEN PEROXIDE 3% 118 ML BOTTLE TP SCH ×2 (09:00→21:08)
[2019-06-10 09:21] LABS: BASOPHILS % (AUTO) 0.3 % (0.0-2.0); EOSINOPHILS # (AUTO) 0.1 K/uL (0.0-0.7); EOSINOPHILS % (AUTO) 1.7 % (0.0-7.0); HEMATOCRIT 35.4 % (31.2-41.9); HEMOGLOBIN 12.2 g/dL (10.9-14.3); LYMPHOCYTES # (AUTO) 1.9 K/uL (20.0-40.0); LYMPHOCYTES % (AUTO) 22.2 % (20.5-51.5); MEAN CORPUSCULAR HEMOGLOBIN 30.1 uug (24.7-32.8); MEAN CORPUSCULAR HGB CONC 35 g/dL (32.3-35.6); MEAN CORPUSCULAR VOLUME 87.1 fL (75.5-95.3); MONOCYTES # (AUTO) 0.9 K/uL (2.0-10.0); MONOCYTES % (AUTO) 10.7 % (0.0-11.0); NEUTROPHILS # (AUTO) 5.6 K/uL (1.8-8.9); NEUTROPHILS % (AUTO) 65.1 % (38.5-71.5); PLATELET COUNT (AUTO) 291 K/uL (179-408); RED BLOOD CELL COUNT(AUTO) 4.06 MIL/uL (3.63-4.92); WHITE BLOOD COUNT (AUTO) 8.6 K/uL (3.8-11.8)
[2019-06-10] MEDS: IPRATROPIUM BROMIDE 0.5 MG/2.5 ML NEBU NEB PRN (15:31)
[2019-06-10] MEDS: ALBUTEROL SULFATE 2.5 MG/3 ML NEBU NEB PRN (15:31)
[2019-06-10 20:05] VITALS: BP 130/76
[2019-06-10] MEDS: ATORVASTATIN 40 MG TABLET GT SCH (21:31)
[2019-06-10] MEDS: BACLOFEN 10 MG TABLET GT SCH (21:31)
[2019-06-10] MEDS: AZILECT 1 MG TAB GT SCH (21:32)
[2019-06-10] MEDS: THIAMINE HCL 100 MG TABLET GT SCH (21:32)
[2019-06-10] MEDS: RIVAROXABAN 15 MG TABLET GT SCH (21:33)
[2019-06-10] MEDS: TERIPARATIDE SQ SCH (21:33)
[2019-06-11] MEDS: BLOOD SUGAR DIAGNOSTIC 1 EACH STRIP VI SCH ×5 (00:15→23:27)
[2019-06-11] MEDS: CARBIDOPA/LEVODOPA 25-250MG TABLET GT SCH ×7 (00:15→23:27)
[2019-06-11] MEDS: INSULIN REGULAR, HUMAN 300 UNIT/3 ML VIAL SQ PRN ×4 (00:17→23:30)
[2019-06-11] MEDS: GLUCERNA SHAKE 237 ML CAN GT SCH ×6 (02:03→21:43)
[2019-06-11] MEDS: ENTACAPONE 200 MG TABLET GT SCH ×6 (02:03→21:43)
[2019-06-11] MEDS: PROTEIN SUPPLEMENT (PROSTAT) 30 ML LIQUID GT SCH (05:26)
[2019-06-11] MEDS: LEVOTHYROXINE SODIUM 100 MCG TABLET GT SCH (05:26)
[2019-06-11] MEDS: BETHANECHOL CHLORIDE 25 MG TABLET GT SCH ×3 (05:26→21:43)
[2019-06-11] MEDS: CHOLECALCIFEROL 1,000 UNIT TABLET GT SCH (05:26)
[2019-06-11] MEDS: MAGNESIUM OXIDE 250 MG TABLET GT SCH (05:26)
[2019-06-11] MEDS: CALCIUM CITRA-VITAMIN D 315 MG-250 UNITS TABLET GT SCH (05:26)
[2019-06-11] MEDS: MULTIVIT, IRON, MIN NO. 8, FA TABLET GT SCH (05:26)
[2019-06-11] MEDS: IPRATROPIUM BROMIDE 0.5 MG/2.5 ML NEBU NEB PRN ×3 (08:08→19:39)
[2019-06-11] MEDS: ALBUTEROL SULFATE 2.5 MG/3 ML NEBU NEB PRN ×3 (08:08→19:39)
[2019-06-11] MEDS: HYDROGEN PEROXIDE 3% 118 ML BOTTLE TP SCH ×2 (08:16→21:08)
[2019-06-11] MEDS: GLIMEPIRIDE 1 MG GT SCH (08:22)
[2019-06-11] MEDS: DOCUSATE SODIUM 100 MG/10 ML LIQUID UDC GT SCH ×2 (08:23→21:42)
[2019-06-11] MEDS: LEVETIRACETAM 500 MG/5 ML LIQUID UDC GT SCH ×2 (08:25→21:42)
[2019-06-11] MEDS: MIRALAX 17 GM POWD.PACK GT SCH (08:26)
[2019-06-11] MEDS: AMANTADINE HCL 100 MG TABLET GT SCH (08:26)
[2019-06-11] MEDS: FAMOTIDINE 20 MG TABLET GT SCH ×2 (08:26→21:43)
[2019-06-11] MEDS: MEMANTINE HCL 10 MG TABLET GT SCH ×2 (08:26→17:36)
[2019-06-11] MEDS: CRANBERRY 450 MG GT SCH (08:26)
[2019-06-11] MEDS: ASCORBIC ACID 500 MG TABLET GT SCH ×2 (08:26→21:43)
[2019-06-11] MEDS: AMIODARONE 100 MG GT SCH (08:26)
[2019-06-11] MEDS: ACIDOPHILUS/BULGARICUS CHEW TAB PO SCH ×2 (08:27→21:43)
[2019-06-11] MEDS: RIVASTIGMINE 13.3 MG TOP SCH (08:27)
[2019-06-11] MEDS: COD LIVER OIL/ZINC OXIDE OINT 113 GM TUBE TP SCH ×2 (08:27→21:43)
[2019-06-11] MEDS: MODAFINIL 100 MG TABLET GT SCH (08:35)
[2019-06-11 14:58] VITALS: BP 130/81
[2019-06-11] MEDS: RIVAROXABAN 15 MG TABLET GT SCH (21:00)
[2019-06-11] MEDS: BACLOFEN 10 MG TABLET GT SCH (21:42)
[2019-06-11] MEDS: AZILECT 1 MG TAB GT SCH (21:43)
[2019-06-11] MEDS: THIAMINE HCL 100 MG TABLET GT SCH (21:43)
[2019-06-11] MEDS: TERIPARATIDE SQ SCH (21:43)
[2019-06-11] MEDS: ATORVASTATIN 40 MG TABLET GT SCH (21:43)
[2019-06-12] MEDS: GLUCERNA SHAKE 237 ML CAN GT SCH ×6 (01:58→21:31)
[2019-06-12] MEDS: ENTACAPONE 200 MG TABLET GT SCH ×6 (01:58→21:30)
[2019-06-12] MEDS: CARBIDOPA/LEVODOPA 25-250MG TABLET GT SCH ×5 (03:30→19:53)
[2019-06-12] MEDS: CHOLECALCIFEROL 1,000 UNIT TABLET GT SCH (05:08)
[2019-06-12] MEDS: CALCIUM CITRA-VITAMIN D 315 MG-250 UNITS TABLET GT SCH (05:08)
[2019-06-12] MEDS: PROTEIN SUPPLEMENT (PROSTAT) 30 ML LIQUID GT SCH (05:08)
[2019-06-12] MEDS: MAGNESIUM OXIDE 250 MG TABLET GT SCH (05:08)
[2019-06-12] MEDS: BETHANECHOL CHLORIDE 25 MG TABLET GT SCH ×3 (05:08→21:31)
[2019-06-12] MEDS: LEVOTHYROXINE SODIUM 100 MCG TABLET GT SCH (05:08)
[2019-06-12] MEDS: INSULIN REGULAR, HUMAN 300 UNIT/3 ML VIAL SQ PRN ×3 (07:45→16:03)
[2019-06-12] MEDS: BLOOD SUGAR DIAGNOSTIC 1 EACH STRIP VI SCH ×3 (07:45→16:03)
[2019-06-12] MEDS: CRANBERRY 450 MG GT SCH (08:21)
[2019-06-12] MEDS: FAMOTIDINE 20 MG TABLET GT SCH ×2 (08:21→21:29)
[2019-06-12] MEDS: MIRALAX 17 GM POWD.PACK GT SCH (08:21)
[2019-06-12] MEDS: LEVETIRACETAM 500 MG/5 ML LIQUID UDC GT SCH ×2 (08:21→21:29)
[2019-06-12] MEDS: RIVASTIGMINE 13.3 MG TOP SCH (08:21)
[2019-06-12] MEDS: ASCORBIC ACID 500 MG TABLET GT SCH ×2 (08:21→21:30)
[2019-06-12] MEDS: AMIODARONE 100 MG GT SCH (08:21)
[2019-06-12] MEDS: AMANTADINE HCL 100 MG TABLET GT SCH (08:21)
[2019-06-12] MEDS: COD LIVER OIL/ZINC OXIDE OINT 113 GM TUBE TP SCH ×2 (08:21→21:30)
[2019-06-12] MEDS: MEMANTINE HCL 10 MG TABLET GT SCH ×2 (08:21→17:05)
[2019-06-12] MEDS: GLIMEPIRIDE 1 MG GT SCH (08:21)
[2019-06-12] MEDS: MODAFINIL 100 MG TABLET GT SCH (08:21)
[2019-06-12] MEDS: ACIDOPHILUS/BULGARICUS CHEW TAB PO SCH ×2 (08:21→21:30)
[2019-06-12] MEDS: DOCUSATE SODIUM 100 MG/10 ML LIQUID UDC GT SCH ×2 (08:21→21:29)
[2019-06-12] MEDS ORDERED: MODAFINIL 100 MG TABLET PO ONE (09:00)
[2019-06-12] MEDS: HYDROGEN PEROXIDE 3% 118 ML BOTTLE TP SCH ×2 (09:42→21:00)
[2019-06-12] MEDS: ALBUTEROL SULFATE 2.5 MG/3 ML NEBU NEB PRN (15:31)
[2019-06-12] MEDS: IPRATROPIUM BROMIDE 0.5 MG/2.5 ML NEBU NEB PRN (15:31)
[2019-06-12] MEDS: TERIPARATIDE SQ SCH (20:13)
[2019-06-12] MEDS: RIVAROXABAN 15 MG TABLET GT SCH (21:26)
[2019-06-12] MEDS: BACLOFEN 10 MG TABLET GT SCH (21:29)
[2019-06-12] MEDS: ATORVASTATIN 40 MG TABLET GT SCH (21:29)
[2019-06-12] MEDS: AZILECT 1 MG TAB GT SCH (21:29)
[2019-06-12] MEDS: THIAMINE HCL 100 MG TABLET GT SCH (21:30)
[2019-06-12 22:18] VITALS: BP 116/73
[2019-06-13] MEDS: CARBIDOPA/LEVODOPA 25-250MG TABLET GT SCH ×7 (00:21→23:04)
[2019-06-13] MEDS: BLOOD SUGAR DIAGNOSTIC 1 EACH STRIP VI SCH ×4 (00:35→15:50)
[2019-06-13] MEDS: INSULIN REGULAR, HUMAN 300 UNIT/3 ML VIAL SQ PRN ×4 (00:37→15:51)
[2019-06-13] MEDS: GLUCERNA SHAKE 237 ML CAN GT SCH ×6 (01:11→21:11)
[2019-06-13] MEDS: ENTACAPONE 200 MG TABLET GT SCH ×6 (01:11→21:11)
[2019-06-13] MEDS: CALCIUM CITRA-VITAMIN D 315 MG-250 UNITS TABLET GT SCH (05:09)
[2019-06-13] MEDS: MAGNESIUM OXIDE 250 MG TABLET GT SCH (05:09)
[2019-06-13] MEDS: BETHANECHOL CHLORIDE 25 MG TABLET GT SCH ×3 (05:09→21:11)
[2019-06-13] MEDS: MULTIVIT, IRON, MIN NO. 8, FA TABLET GT SCH (05:09)
[2019-06-13] MEDS: PROTEIN SUPPLEMENT (PROSTAT) 30 ML LIQUID GT SCH (05:09)
[2019-06-13] MEDS: CHOLECALCIFEROL 1,000 UNIT TABLET GT SCH (05:09)
[2019-06-13] MEDS: LEVOTHYROXINE SODIUM 100 MCG TABLET GT SCH (05:09)
[2019-06-13 08:03] VITALS: BP 114/63
[2019-06-13] MEDS: ASCORBIC ACID 500 MG TABLET GT SCH ×2 (08:08→20:57)
[2019-06-13] MEDS: FAMOTIDINE 20 MG TABLET GT SCH ×2 (08:08→20:57)
[2019-06-13] MEDS: COD LIVER OIL/ZINC OXIDE OINT 113 GM TUBE TP SCH ×2 (08:08→20:58)
[2019-06-13] MEDS: DOCUSATE SODIUM 100 MG/10 ML LIQUID UDC GT SCH ×2 (08:08→20:57)
[2019-06-13] MEDS: MEMANTINE HCL 10 MG TABLET GT SCH ×2 (08:08→17:18)
[2019-06-13] MEDS: ACIDOPHILUS/BULGARICUS CHEW TAB PO SCH ×2 (08:08→20:57)
[2019-06-13] MEDS: MODAFINIL 100 MG TABLET GT SCH (08:08)
[2019-06-13] MEDS: RIVASTIGMINE 13.3 MG TOP SCH (08:08)
[2019-06-13] MEDS: CRANBERRY 450 MG GT SCH (08:08)
[2019-06-13] MEDS: AMANTADINE HCL 100 MG TABLET GT SCH (08:08)
[2019-06-13] MEDS: MIRALAX 17 GM POWD.PACK GT SCH (08:08)
[2019-06-13] MEDS: AMIODARONE 100 MG GT SCH (08:08)
[2019-06-13] MEDS: LEVETIRACETAM 500 MG/5 ML LIQUID UDC GT SCH ×2 (08:08→20:57)
[2019-06-13] MEDS: GLIMEPIRIDE 1 MG GT SCH (08:08)
[2019-06-13] MEDS ORDERED: MODAFINIL 100 MG TABLET PO ONE (09:00)
[2019-06-13] MEDS: HYDROGEN PEROXIDE 3% 118 ML BOTTLE TP SCH ×2 (10:40→21:00)
[2019-06-13] MEDS: ALBUTEROL SULFATE 2.5 MG/3 ML NEBU NEB PRN ×2 (15:13→23:18)
[2019-06-13] MEDS: IPRATROPIUM BROMIDE 0.5 MG/2.5 ML NEBU NEB PRN ×2 (15:13→23:18)
[2019-06-13] MEDS: BACLOFEN 10 MG TABLET GT SCH (20:57)
[2019-06-13] MEDS: AZILECT 1 MG TAB GT SCH (20:57)
[2019-06-13] MEDS: ATORVASTATIN 40 MG TABLET GT SCH (20:57)
[2019-06-13] MEDS: THIAMINE HCL 100 MG TABLET GT SCH (20:57)
[2019-06-13] MEDS: TERIPARATIDE SQ SCH (20:58)
[2019-06-13] MEDS: RIVAROXABAN 15 MG TABLET GT SCH (21:00)
[2019-06-13] MEDS: ACETAMINOPHEN 650 MG/20 ML UDC- SA PATIENTS-PAIN ONLY GT PRN (23:00)
[2019-06-13 23:21] VITALS: BP 102/58
[2019-06-14] MEDS: INSULIN REGULAR, HUMAN 300 UNIT/3 ML VIAL SQ PRN ×5 (01:12→23:15)
[2019-06-14] MEDS: GLUCERNA SHAKE 237 ML CAN GT SCH ×6 (01:32→21:04)
[2019-06-14] MEDS: ENTACAPONE 200 MG TABLET GT SCH ×6 (01:32→21:04)
[2019-06-14] MEDS: CARBIDOPA/LEVODOPA 25-250MG TABLET GT SCH ×6 (03:01→23:10)
[2019-06-14] MEDS: PROTEIN SUPPLEMENT (PROSTAT) 30 ML LIQUID GT SCH (05:30)
[2019-06-14] MEDS: MAGNESIUM OXIDE 250 MG TABLET GT SCH (05:30)
[2019-06-14] MEDS: BETHANECHOL CHLORIDE 25 MG TABLET GT SCH ×3 (05:30→21:04)
[2019-06-14] MEDS: CALCIUM CITRA-VITAMIN D 315 MG-250 UNITS TABLET GT SCH (05:30)
[2019-06-14] MEDS: LEVOTHYROXINE SODIUM 100 MCG TABLET GT SCH (05:30)
[2019-06-14] MEDS: CHOLECALCIFEROL 1,000 UNIT TABLET GT SCH (05:30)
[2019-06-14] MEDS: BLOOD SUGAR DIAGNOSTIC 1 EACH STRIP VI SCH ×5 (07:27→23:10)
[2019-06-14 08:04] VITALS: BP 123/61
[2019-06-14] MEDS: GLIMEPIRIDE 1 MG GT SCH (08:22)
[2019-06-14] MEDS: DOCUSATE SODIUM 100 MG/10 ML LIQUID UDC GT SCH ×2 (08:23→20:56)
[2019-06-14] MEDS: LEVETIRACETAM 500 MG/5 ML LIQUID UDC GT SCH ×2 (08:23→20:56)
[2019-06-14] MEDS: MIRALAX 17 GM POWD.PACK GT SCH (08:24)
[2019-06-14] MEDS: MEMANTINE HCL 10 MG TABLET GT SCH ×2 (08:24→16:42)
[2019-06-14] MEDS: CRANBERRY 450 MG GT SCH (08:24)
[2019-06-14] MEDS: AMIODARONE 100 MG GT SCH (08:27)
[2019-06-14] MEDS: AMANTADINE HCL 100 MG TABLET GT SCH (08:27)
[2019-06-14] MEDS: MODAFINIL 100 MG TABLET GT SCH (08:27)
[2019-06-14] MEDS: FAMOTIDINE 20 MG TABLET GT SCH ×2 (08:27→20:57)
[2019-06-14] MEDS: ASCORBIC ACID 500 MG TABLET GT SCH ×2 (08:27→20:58)
[2019-06-14] MEDS: RIVASTIGMINE 13.3 MG TOP SCH (08:28)
[2019-06-14] MEDS: COD LIVER OIL/ZINC OXIDE OINT 113 GM TUBE TP SCH ×2 (08:28→20:59)
[2019-06-14] MEDS: ACIDOPHILUS/BULGARICUS CHEW TAB PO SCH ×2 (08:28→20:59)
[2019-06-14] MEDS ORDERED: MODAFINIL 100 MG TABLET PO ONE ×2 (09:00)
[2019-06-14] MEDS: HYDROGEN PEROXIDE 3% 118 ML BOTTLE TP SCH ×2 (09:19→21:23)
[2019-06-14] MEDS: ALBUTEROL SULFATE 2.5 MG/3 ML NEBU NEB PRN ×2 (14:00→21:23)
[2019-06-14] MEDS: IPRATROPIUM BROMIDE 0.5 MG/2.5 ML NEBU NEB PRN ×2 (14:00→21:23)
--- NOTE | 2019-06-14 15:02 | NUR ---
spoke to Dr Bernabe ,aware pt has low grade temp, increase yellowish secretions,with new orders noted.
[2019-06-14 16:05] LABS: BASOPHILS % (AUTO) 0.2 % (0.0-2.0); EOSINOPHILS % (AUTO) 0.3 % (0.0-7.0); HEMATOCRIT 33.3 % (31.2-41.9); LYMPHOCYTES % (AUTO) 15.6 % (20.5-51.5); MEAN CORPUSCULAR HEMOGLOBIN 28.8 uug (24.7-32.8); MEAN CORPUSCULAR HGB CONC 33 g/dL (32.3-35.6); MEAN CORPUSCULAR VOLUME 87.3 fL (75.5-95.3); MONOCYTES # (AUTO) 0.9 K/uL (2.0-10.0); MONOCYTES % (AUTO) 13.7 % (0.0-11.0); NEUTROPHILS # (AUTO) 4.6 K/uL (1.8-8.9); NEUTROPHILS % (AUTO) 70.2 % (38.5-71.5); PLATELET COUNT (AUTO) 208 K/uL (179-408); RED BLOOD CELL COUNT(AUTO) 3.81 MIL/uL (3.63-4.92); WHITE BLOOD COUNT (AUTO) 6.5 K/uL (3.8-11.8)
[2019-06-14 16:12] LABS: CREATININE 0.9 mg/dL (0.6-1.3); POTASSIUM 4.8 mmol/L (3.5-5.1)
[2019-06-14] MEDS: ATORVASTATIN 40 MG TABLET GT SCH (20:56)
[2019-06-14] MEDS: BACLOFEN 10 MG TABLET GT SCH (20:56)
[2019-06-14] MEDS: AZILECT 1 MG TAB GT SCH (20:56)
[2019-06-14] MEDS: RIVAROXABAN 15 MG TABLET GT SCH (20:58)
[2019-06-14] MEDS: THIAMINE HCL 100 MG TABLET GT SCH (20:58)
[2019-06-14] MEDS: TERIPARATIDE SQ SCH (20:59)
[2019-06-14] MEDS: ACETAMINOPHEN 650 MG/20 ML UDC- SA PATIENTS-PAIN ONLY GT PRN (21:30)
[2019-06-14 23:00] VITALS: BP 118/81
[2019-06-15] MEDS: ENTACAPONE 200 MG TABLET GT SCH ×6 (01:40→21:16)
[2019-06-15] MEDS: GLUCERNA SHAKE 237 ML CAN GT SCH ×6 (01:40→21:16)
[2019-06-15] MEDS: IPRATROPIUM BROMIDE 0.5 MG/2.5 ML NEBU NEB PRN ×4 (01:52→21:32)
[2019-06-15] MEDS: ALBUTEROL SULFATE 2.5 MG/3 ML NEBU NEB PRN ×4 (01:52→21:32)
[2019-06-15] MEDS: CARBIDOPA/LEVODOPA 25-250MG TABLET GT SCH ×6 (03:30→22:49)
[2019-06-15] MEDS: LEVOTHYROXINE SODIUM 100 MCG TABLET GT SCH (05:16)
[2019-06-15] MEDS: PROTEIN SUPPLEMENT (PROSTAT) 30 ML LIQUID GT SCH (05:16)
[2019-06-15] MEDS: BETHANECHOL CHLORIDE 25 MG TABLET GT SCH ×3 (05:16→21:16)
[2019-06-15] MEDS: MAGNESIUM OXIDE 250 MG TABLET GT SCH (05:16)
[2019-06-15] MEDS: MULTIVIT, IRON, MIN NO. 8, FA TABLET GT SCH (05:16)
[2019-06-15] MEDS: CALCIUM CITRA-VITAMIN D 315 MG-250 UNITS TABLET GT SCH (05:16)
[2019-06-15] MEDS: CHOLECALCIFEROL 1,000 UNIT TABLET GT SCH (05:16)
[2019-06-15] MEDS: BLOOD SUGAR DIAGNOSTIC 1 EACH STRIP VI SCH ×4 (07:14→23:11)
[2019-06-15] MEDS: INSULIN REGULAR, HUMAN 300 UNIT/3 ML VIAL SQ PRN ×4 (07:17→23:13)
[2019-06-15 08:03] VITALS: BP 160/79
[2019-06-15] MEDS: GLIMEPIRIDE 1 MG GT SCH (08:20)
[2019-06-15] MEDS: DOCUSATE SODIUM 100 MG/10 ML LIQUID UDC GT SCH ×2 (08:21→21:15)
[2019-06-15] MEDS: MIRALAX 17 GM POWD.PACK GT SCH (08:21)
[2019-06-15] MEDS: CRANBERRY 450 MG GT SCH (08:21)
[2019-06-15] MEDS: LEVETIRACETAM 500 MG/5 ML LIQUID UDC GT SCH ×2 (08:21→21:15)
[2019-06-15] MEDS: MEMANTINE HCL 10 MG TABLET GT SCH ×2 (08:22→16:31)
[2019-06-15] MEDS: AMIODARONE 100 MG GT SCH (08:22)
[2019-06-15] MEDS: ASCORBIC ACID 500 MG TABLET GT SCH ×2 (08:23→21:15)
[2019-06-15] MEDS: MODAFINIL 100 MG TABLET GT SCH (08:23)
[2019-06-15] MEDS: AMANTADINE HCL 100 MG TABLET GT SCH (08:23)
[2019-06-15] MEDS: FAMOTIDINE 20 MG TABLET GT SCH ×2 (08:23→21:15)
[2019-06-15] MEDS: RIVASTIGMINE 13.3 MG TOP SCH (08:24)
[2019-06-15] MEDS: ACIDOPHILUS/BULGARICUS CHEW TAB PO SCH ×2 (08:24→21:16)
[2019-06-15] MEDS: COD LIVER OIL/ZINC OXIDE OINT 113 GM TUBE TP SCH ×2 (08:24→21:16)
[2019-06-15] MEDS ORDERED: MODAFINIL 100 MG TABLET PO ONE ×2 (09:00)
[2019-06-15] MEDS: HYDROGEN PEROXIDE 3% 118 ML BOTTLE TP SCH ×2 (09:00→21:31)
--- NOTE | 2019-06-15 15:31 | NUR ---
spoke to Rose Rai DNP,aware pt spike temp 102.8 axillary and aware of the labs ,cxr results,with new orders noted and carried out,spoke to Alen,pt's son ,aware of new orders and agreed with plan of care.
[2019-06-15 17:22] LABS: *BILIRUBIN,URIN NEGATIVE (NEGATIVE); *CLARITY,URINE SLIGHTLY CLOUDY (CLEAR); *COLOR,URINE YELLOW (YELLOW); *KETONES,URINE NEGATIVE (NEGATIVE); *UROBILINOGEN,URINE 0.2 E.U./dl (NORMAL); LEUKOCYTE ESTERASE ,URINE 1+ (NEGATIVE); NITRITE, URINE POSITIVE (NEGATIVE); UGLUCOSE NEGATIVE (NEGATIVE)
[2019-06-15 17:25] LABS: *BLOOD, URINE NEGATIVE (NEGATIVE)
[2019-06-15 17:33] LABS: BACTERIA,URINE MANY /HPF (NONE SEEN); SQUAMOUS EPITHELIAL CELL,UR MODERATE /HPF (NONE SEEN); WBC,URINE 80-100 /HPF (0-3)
[2019-06-15 17:34] LABS: URINE AMORPHOUS URATE MANY /HPF
[2019-06-15] MEDS: CEFEPIME HCL 2 G in IV DEXTROSE 5% 100 ML IV SCH (18:14)
--- NOTE | 2019-06-15 18:41 | NUR ---
start on ivatb Cefepine 2 gm ivatb,no adverse reaction noted,new orders to give vancomycin 1 gm every 24 hours for fever.
--- NOTE | 2019-06-15 18:42 | NUR ---
Susan pt's caregiver,reported pt's R arm is slight red and warm to touch,will observe,pt is on Atb.
[2019-06-15] MEDS: VANCOMYCIN IV 1,000 MG in IV DEXTROSE 5% 250 ML IV SCH (19:12)
[2019-06-15 21:15] VITALS: BP 118/52
[2019-06-15] MEDS: BACLOFEN 10 MG TABLET GT SCH (21:15)
[2019-06-15] MEDS: ATORVASTATIN 40 MG TABLET GT SCH (21:15)
[2019-06-15] MEDS: THIAMINE HCL 100 MG TABLET GT SCH (21:15)
[2019-06-15] MEDS: AZILECT 1 MG TAB GT SCH (21:15)
--- NOTE | 2019-06-15 21:15 | NUR ---
Patient is awake, son and caregiver are both on the bedside, son is worried about patient having a DVT or maybe a fracture on patient's right hand is red and swollen and is warm to touch, also patient was moaning when I touched her hand. BP: 118/52 HR: 63 T: 98.6 RR: 18 02 sat: 99%. Son is very worried and wants me to call MD for Doppler ultrasound and an X-ray. I called and spoke with Dr. Grant (Box Car Washer) and ordered to transfer patient to ER but Son Alen is here and he refused to transfer patient to ER. I called Dr. Grant again and he ordered, Venous Doppler on Right Upper Extremity and X-ray of the right hand for pain and swelling. Patient is in bed and resting, will continue monitor.
[2019-06-15] MEDS: TERIPARATIDE SQ SCH (21:16)
[2019-06-15] MEDS: RIVAROXABAN 15 MG TABLET GT SCH (21:16)
--- NOTE | 2019-06-15 22:45 | NUR ---
Patient is afebrile, no respiratory distress noted at this time, on Vancomycin and Cefepime IV for fever, no adverse reactions noted. IV site is intact and patent, no infiltration noted. Elevated swollen right hand on a pillow,still with redness and warm to touch, handled very gently, kept clean and comfortable, will continue monitor.
[2019-06-15 23:00] VITALS: BP 125/53
--- NOTE | 2019-06-15 23:00 | NUR ---
Right Venous Doppler resulted with no DVT, X-ray of Right hand resulted with no fracture/ dislocation, I called patient's son Alen and made him aware of x-ray and Venous Doppler results and he was thankful. patient is asleep and no signs of any distress, kept patient clean and comfortable.
[2019-06-16] MEDS: ALBUTEROL SULFATE 2.5 MG/3 ML NEBU NEB PRN ×2 (00:13→19:32)
[2019-06-16] MEDS: IPRATROPIUM BROMIDE 0.5 MG/2.5 ML NEBU NEB PRN ×2 (00:13→19:32)
[2019-06-16] MEDS: GLUCERNA SHAKE 237 ML CAN GT SCH ×6 (01:25→22:19)
[2019-06-16] MEDS: ENTACAPONE 200 MG TABLET GT SCH ×6 (01:25→21:01)
[2019-06-16] MEDS: CARBIDOPA/LEVODOPA 25-250MG TABLET GT SCH ×6 (02:33→23:24)
[2019-06-16] MEDS: LEVOTHYROXINE SODIUM 100 MCG TABLET GT SCH (05:42)
[2019-06-16] MEDS: BETHANECHOL CHLORIDE 25 MG TABLET GT SCH ×3 (05:42→22:19)
[2019-06-16] MEDS: CALCIUM CITRA-VITAMIN D 315 MG-250 UNITS TABLET GT SCH (05:42)
[2019-06-16] MEDS: MAGNESIUM OXIDE 250 MG TABLET GT SCH (05:42)
[2019-06-16] MEDS: PROTEIN SUPPLEMENT (PROSTAT) 30 ML LIQUID GT SCH (05:42)
[2019-06-16] MEDS: CHOLECALCIFEROL 1,000 UNIT TABLET GT SCH (05:42)
--- NOTE | 2019-06-16 06:45 | NUR ---
Patient slept most of the night, no respiratory distress noted, 02 sat is 99%, afebrile, suctioned with brownish secretions, HOB elevated, on aspiration precaution, kept clean and comfortable.
[2019-06-16 06:47] LABS: CREATININE 0.8 mg/dL (0.6-1.3); POTASSIUM 5.1 mmol/L (3.5-5.1)
[2019-06-16 06:58] LABS: BASOPHILS % (AUTO) 0.2 % (0.0-2.0); EOSINOPHILS % (AUTO) 0.1 % (0.0-7.0); HEMOGLOBIN 10.5 g/dL (10.9-14.3); LYMPHOCYTES # (AUTO) 0.6 K/uL (20.0-40.0); LYMPHOCYTES % (AUTO) 9.2 % (20.5-51.5); MEAN CORPUSCULAR HEMOGLOBIN 29.3 uug (24.7-32.8); MEAN CORPUSCULAR HGB CONC 34 g/dL (32.3-35.6); MEAN CORPUSCULAR VOLUME 86.2 fL (75.5-95.3); MONOCYTES # (AUTO) 0.7 K/uL (2.0-10.0); MONOCYTES % (AUTO) 10.9 % (0.0-11.0); NEUTROPHILS # (AUTO) 5.1 K/uL (1.8-8.9); NEUTROPHILS % (AUTO) 79.6 % (38.5-71.5); PLATELET COUNT (AUTO) 182 K/uL (179-408); RED BLOOD CELL COUNT(AUTO) 3.59 MIL/uL (3.63-4.92); WHITE BLOOD COUNT (AUTO) 6.4 K/uL (3.8-11.8)
[2019-06-16] MEDS: BLOOD SUGAR DIAGNOSTIC 1 EACH STRIP VI SCH ×3 (07:15→16:30)
[2019-06-16] MEDS: INSULIN REGULAR, HUMAN 300 UNIT/3 ML VIAL SQ PRN ×3 (07:27→16:32)
[2019-06-16 08:00] VITALS: BP 128/74
[2019-06-16] MEDS: GLIMEPIRIDE 1 MG GT SCH (08:03)
[2019-06-16] MEDS: LEVETIRACETAM 500 MG/5 ML LIQUID UDC GT SCH ×2 (08:04→20:57)
[2019-06-16] MEDS: CRANBERRY 450 MG GT SCH (08:04)
[2019-06-16] MEDS: MIRALAX 17 GM POWD.PACK GT SCH (08:04)
[2019-06-16] MEDS: DOCUSATE SODIUM 100 MG/10 ML LIQUID UDC GT SCH ×2 (08:04→20:51)
[2019-06-16] MEDS: MEMANTINE HCL 10 MG TABLET GT SCH ×2 (08:05→17:11)
[2019-06-16] MEDS: AMIODARONE 100 MG GT SCH (08:05)
[2019-06-16] MEDS: AMANTADINE HCL 100 MG TABLET GT SCH (08:06)
[2019-06-16] MEDS: FAMOTIDINE 20 MG TABLET GT SCH ×2 (08:06→20:59)
[2019-06-16] MEDS: MODAFINIL 100 MG TABLET GT SCH (08:06)
[2019-06-16] MEDS: ASCORBIC ACID 500 MG TABLET GT SCH ×2 (08:07→20:59)
[2019-06-16] MEDS: ACIDOPHILUS/BULGARICUS CHEW TAB PO SCH ×2 (08:07→21:00)
[2019-06-16] MEDS: RIVASTIGMINE 13.3 MG TOP SCH (08:08)
[2019-06-16] MEDS: COD LIVER OIL/ZINC OXIDE OINT 113 GM TUBE TP SCH ×2 (08:08→21:01)
[2019-06-16] MEDS ORDERED: MODAFINIL 100 MG TABLET PO ONE ×2 (09:00)
[2019-06-16] MEDS: HYDROGEN PEROXIDE 3% 118 ML BOTTLE TP SCH ×2 (09:00→21:10)
--- NOTE | 2019-06-16 10:30 | NUR ---
Seen By Paulette Air Pollution Specialist, new order given to check for rapid influenza antigen a+b.
--- NOTE | 2019-06-16 11:00 | NUR ---
Seen by Stephanie Schmidt, notified of patient's condition, made aware of cxr, no new order given at this time.
--- NOTE | 2019-06-16 12:39 | NUR ---
Dr. Bernabe notified of patient's condition, labs results, Na 125, new orders given to give normal saline 500ml iv x1, repeat bmp in am.
[2019-06-16] MEDS ORDERED: IV NORMAL SALINE 500 ML IV ONE (13:00)
[2019-06-16] MEDS: ACETAMINOPHEN 650 MG/20 ML UDC- SA PATIENTS-PAIN ONLY GT PRN ×2 (14:05→21:40)
[2019-06-16] MEDS: CEFEPIME HCL 2 G in IV DEXTROSE 5% 100 ML IV SCH (17:00)
[2019-06-16] MEDS: VANCOMYCIN IV 1,000 MG in IV DEXTROSE 5% 250 ML IV SCH (18:20)
[2019-06-16] MEDS: ATORVASTATIN 40 MG TABLET GT SCH (20:58)
[2019-06-16] MEDS: AZILECT 1 MG TAB GT SCH (20:58)
[2019-06-16] MEDS: BACLOFEN 10 MG TABLET GT SCH (20:58)
[2019-06-16] MEDS: THIAMINE HCL 100 MG TABLET GT SCH (20:59)
[2019-06-16] MEDS: TERIPARATIDE SQ SCH (21:00)
[2019-06-16] MEDS: RIVAROXABAN 15 MG TABLET GT SCH (21:00)
[2019-06-16 21:40] VITALS: BP 138/52
--- NOTE | 2019-06-16 22:10 | NUR ---
Patient is still warm to touch temperature of 100.0 at this time, currently on Vancomycin and Cefepime IV for fever, suctioned with moderate brownish secretions, son Alen was at the bedside and was concern about patient having sore throat and is requesting to call MD to get something for sore throat, I paged MD and I spoke with Dr. Izaguirre with new order for Robitussin DM 5 ml via gt every 4 hours as needed for cough and sore throat, noted and carried out, son Alen was made aware of new order.
[2019-06-16] MEDS ORDERED: GUAIFENESIN/DEXTROMETHORPHAN 5 ML UDC GT PRN (22:30)
[2019-06-17] MEDS: INSULIN REGULAR, HUMAN 300 UNIT/3 ML VIAL SQ PRN ×4 (00:01→16:40)
[2019-06-17] MEDS: IPRATROPIUM BROMIDE 0.5 MG/2.5 ML NEBU NEB PRN ×3 (00:50→20:35)
[2019-06-17] MEDS: ALBUTEROL SULFATE 2.5 MG/3 ML NEBU NEB PRN ×3 (00:50→20:35)
[2019-06-17] MEDS: ENTACAPONE 200 MG TABLET GT SCH ×5 (01:30→17:30)
[2019-06-17] MEDS: GLUCERNA SHAKE 237 ML CAN GT SCH ×5 (02:00→17:30)
[2019-06-17] MEDS: CARBIDOPA/LEVODOPA 25-250MG TABLET GT SCH ×4 (03:33→15:30)
[2019-06-17] MEDS: ACETAMINOPHEN 650 MG/20 ML UDC- SA PATIENTS-FEVER ONLY GT PRN ×2 (03:40→18:37)
[2019-06-17] MEDS: MAGNESIUM OXIDE 250 MG TABLET GT SCH (06:12)
[2019-06-17] MEDS: PROTEIN SUPPLEMENT (PROSTAT) 30 ML LIQUID GT SCH (06:12)
[2019-06-17] MEDS: LEVOTHYROXINE SODIUM 100 MCG TABLET GT SCH (06:12)
[2019-06-17] MEDS: MULTIVIT, IRON, MIN NO. 8, FA TABLET GT SCH (06:12)
[2019-06-17] MEDS: CALCIUM CITRA-VITAMIN D 315 MG-250 UNITS TABLET GT SCH (06:12)
[2019-06-17] MEDS: BETHANECHOL CHLORIDE 25 MG TABLET GT SCH ×2 (06:12→13:08)
[2019-06-17] MEDS: CHOLECALCIFEROL 1,000 UNIT TABLET GT SCH (06:13)
--- NOTE | 2019-06-17 06:50 | NUR ---
Patient had on and off low grade temperature last night, cooling measures done, breathing treatment was administered as per son's request, Tylenol was given for comfort with help, kept patient clean and comfortable.
[2019-06-17 07:05] LABS: CARBON DIOXIDE 29 mmol/L (21-32); CHLORIDE 92 mmol/L (98-107); CREATININE 0.7 mg/dL (0.6-1.3); GLUCOSE 266 mg/dL (74-106); POTASSIUM 5.5 mmol/L (3.5-5.1); UREA NITROGEN, BLOOD 21 mg/dL (7-18)
[2019-06-17 08:00] VITALS: BP 144/72
[2019-06-17] MEDS: BLOOD SUGAR DIAGNOSTIC 1 EACH STRIP VI SCH ×4 (08:10→16:37)
[2019-06-17] MEDS: LEVETIRACETAM 500 MG/5 ML LIQUID UDC GT SCH (08:11)
[2019-06-17] MEDS: DOCUSATE SODIUM 100 MG/10 ML LIQUID UDC GT SCH (08:11)
[2019-06-17] MEDS: GLIMEPIRIDE 1 MG GT SCH (08:11)
[2019-06-17] MEDS: CRANBERRY 450 MG GT SCH (08:11)
[2019-06-17] MEDS: MIRALAX 17 GM POWD.PACK GT SCH (08:11)
[2019-06-17] MEDS: ACIDOPHILUS/BULGARICUS CHEW TAB PO SCH (08:12)
[2019-06-17] MEDS: ASCORBIC ACID 500 MG TABLET GT SCH (08:12)
[2019-06-17] MEDS: MODAFINIL 100 MG TABLET GT SCH (08:12)
[2019-06-17] MEDS: AMANTADINE HCL 100 MG TABLET GT SCH (08:12)
[2019-06-17] MEDS: FAMOTIDINE 20 MG TABLET GT SCH (08:12)
[2019-06-17] MEDS: AMIODARONE 100 MG GT SCH (08:12)
[2019-06-17] MEDS: COD LIVER OIL/ZINC OXIDE OINT 113 GM TUBE TP SCH (08:12)
[2019-06-17] MEDS: MEMANTINE HCL 10 MG TABLET GT SCH ×2 (08:12→16:37)
[2019-06-17] MEDS: RIVASTIGMINE 13.3 MG TOP SCH (08:12)
[2019-06-17] MEDS: HYDROGEN PEROXIDE 3% 118 ML BOTTLE TP SCH (09:00)
[2019-06-17] MEDS ORDERED: MODAFINIL 100 MG TABLET PO ONE ×2 (09:00)
--- NOTE | 2019-06-17 09:38 | NUR ---
Seen and examined by Rose Rai,no new orders,she stated is better to contact the dot etcher apprentice and get a order for Abg.
--- NOTE | 2019-06-17 09:40 | NUR ---
Pt appear to be gasping for air, o2 sat 92%,increase o2 to 60 % via p mist.Spoke to Sera Manager [employer] with new orders noted,Alen pt's son aware of patient condition.
[2019-06-17 10:00] LABS: ABG BASE EXCESS -2.8 mmol/L; ABG HCO3 23.3 mmol/L; ABG PH 7.323 (7.350-7.450); ABG PO2 69.3 mmHg (75.0-100.0); ABG SITE LEFT BRACHIAL; ABG TOTAL HEMOGLOBIN 11.6 G/dL (12.0-16.0); COHb 0.7 % (0.5-1.5); MetHb 0.2 % (0.0-1.5); O2Hb 91.7 % (94.0-97.0)
--- NOTE | 2019-06-17 12:00 | NUR ---
Dr Ramires covering for Dr Johnston aware of the Abg results with new orders to continue O2 60 % titrated to keep o2 sat 92 %.
--- NOTE | 2019-06-17 15:00 | NUR ---
Call Dr Mooney,regarding labs and cxr results,spoke to Leonel.
--- NOTE | 2019-06-17 17:24 | NUR ---
Call Dr richter again aware of NA results is 124,K 5.5,and aware of the labs results with new orders noted and carried out,Pt's son Ali aware of new orders.
[2019-06-17] MEDS: CEFEPIME HCL 2 G in IV DEXTROSE 5% 100 ML IV SCH (18:09)
[2019-06-17] MEDS ORDERED: IV NS 1000 ML 1,000 ML IV PRN (18:15)
[2019-06-17] MEDS: VANCOMYCIN IV 1,000 MG in IV DEXTROSE 5% 250 ML IV SCH (18:42)
--- NOTE | 2019-06-17 18:42 | NUR ---
Continue on ivatb,no adverse reaction noted iv site on the L hand intact.No s/s of infiltration noted.
[2019-06-17 18:55] LABS: CREATININE 0.7 mg/dL (0.6-1.3); VANCOMYCIN,TROUGH 6.9 ug/mL (12.0-20.0)
--- NOTE | 2019-06-17 19:10 | NUR ---
Dr Mooney aware pt has respiratory distress ,increase o2 to 95% o2 sat 92 to 93 %,temp 100.2 ,with new orders to transfer pt to Er for evaluation for respiratory distress,spoke to Ali pt's son and aware of new orders agreed with the transfer orders.
--- NOTE | 2019-06-17 19:55 | NUR ---
pt trasferred lesly with 2 respiratory thrapistsilvia and son nikky, used bed to transfer,iv n.s. @75ml/hr, vancomycin 1gm iv running, pt on fio2 95%, report given to e.rBoyd nurse cara, pt is gasping for air, introduced nikky, abby to lesly emerson. Addendum: 06/17/19 at 2245 by ABIMAEL GARCIA RN for evaluation for respiratory distress.
[2019-06-17 20:34] VITALS: BP 118/118
--- NOTE | 2019-06-19 10:27 | NUR ---
SPENCER received a phone call from Bonnie at Dr. Zuluaga's office [phone], stating that patient's dental exam needed to be rescheduled from 06/25/2019 to 07/02/2019. SPENCER expressed agreement, however patient is currently off the unit due to need for acute hospitalization. Patient will be seen by dentist if patient returns to the unit before appointment date, otherwise, SPENCER will reschedule.
--- NOTE | 2019-06-23 17:08 | NUR ---
Today grant the end of patient's 7 day bedhold. At 4:50pm, this SW and [employer] Solderer Shukri Shannen called patient's son Alen ([phone]) to inform him that patient's bedhold was expiring today, and to offer him the option to pay the daily non-vent bed hold rate of $1,065.84, effective tomorrow, in order to continue to hold on to patient's bed. Patient is currently at [facility] after Alen signed patient out AMA from [facility] and transferred the patient to [facility]. Alen stated he is not able to pay the daily rate. Shukri informed Alen that Shukri will report Alen's response back to the Business Office and will await for further instructions from the business office. Shukri informed Alen that Shukri would call Alen back tomorrow once further instructions are provided from the Business Office.
== END 2019-06-17 19:55 | disposition short-term general hospital (02) | DRG 189 ==
LOC: SA
PROVIDERS: ADMIT Specialist; ATTEND Specialist
DX: J96.11 Chronic respiratory failure with hypoxia (principal); G93.1 Anoxic brain damage, not elsewhere classified; I48.20 Chronic atrial fibrillation, unspecified; D68.59 Other primary thrombophilia; I69.351 Hemiplegia and hemiparesis following cerebral infarction affecting right dominant side; I13.0 Hypertensive heart and chronic kidney disease with heart failure and stage 1 through stage 4 chronic kidney disease, or unspecified chronic kidney disease; I50.32 Chronic diastolic (congestive) heart failure; N39.0 Urinary tract infection, site not specified; E87.1 Hypo-osmolality and hyponatremia; Z93.0 Tracheostomy status; Z87.440 Personal history of urinary (tract) infections; Z93.1 Gastrostomy status; Z74.09 Other reduced mobility; E03.9 Hypothyroidism, unspecified; Z79.3 Long term (current) use of hormonal contraceptives; E78.5 Hyperlipidemia, unspecified; I25.2 Old myocardial infarction; Z86.74 Personal history of sudden cardiac arrest; N31.9 Neuromuscular dysfunction of bladder, unspecified; Z79.01 Long term (current) use of anticoagulants; Z86.718 Personal history of other venous thrombosis and embolism; Z83.3 Family history of diabetes mellitus; I25.10 Atherosclerotic heart disease of native coronary artery without angina pectoris; Z95.1 Presence of aortocoronary bypass graft; L30.9 Dermatitis, unspecified; Z87.01 Personal history of pneumonia (recurrent); G20 Parkinson's disease; F02.80 Dementia in other diseases classified elsewhere, unspecified severity, without behavioral disturbance, psychotic disturbance, mood disturbance, and anxiety; F01.50 Vascular dementia, unspecified severity, without behavioral disturbance, psychotic disturbance, mood disturbance, and anxiety; E11.65 Type 2 diabetes mellitus with hyperglycemia; M19.90 Unspecified osteoarthritis, unspecified site; N18.9 Chronic kidney disease, unspecified; D64.9 Anemia, unspecified; M80.08XD Age-related osteoporosis with current pathological fracture, vertebra(e), subsequent encounter for fracture with routine healing; Z86.19 Personal history of other infectious and parasitic diseases; J40 Bronchitis, not specified as acute or chronic; R50.9 Fever, unspecified; B96.20 Unspecified Escherichia coli [E. coli] as the cause of diseases classified elsewhere
CPT/HCPCS: 36415; 36600; 71045; 73130; 83735; 84100; 84520; 85025; 87040; 87070; 87077; 87086; 87400; 94640; 94664; A4663; C1758; J0692; J3370; J7030; J7040; J7050; J7060

== ENCOUNTER 2019-06-17 20:01 | Inpatient (IN) | payer MEDICARE, OTHER ==
[~2019-06-17] VITALS: Ht 157.5 cm; Wt 45.8 kg
--- NOTE | 2019-06-17 20:26 | NUR ---
Pt. admitted to [facility], under care of Dr. Swann. Diagnosis: Congestive Heart Failure Belongs List completed
[2019-06-17] MEDS ORDERED: FUROSEMIDE 40 MG/4 ML VIAL IV ONE (20:30)
[2019-06-17 20:40] LABS: BASOPHILS % (AUTO) 0.1 % (0.0-2.0); HEMATOCRIT 29.9 % (31.2-41.9); HEMOGLOBIN 9.8 g/dL (10.9-14.3); LYMPHOCYTES # (AUTO) 0.6 K/uL (20.0-40.0); LYMPHOCYTES % (AUTO) 9.3 % (20.5-51.5); MEAN CORPUSCULAR HEMOGLOBIN 29.4 uug (24.7-32.8); MEAN CORPUSCULAR HGB CONC 33 g/dL (32.3-35.6); MEAN CORPUSCULAR VOLUME 89.9 fL (75.5-95.3); MONOCYTES # (AUTO) 0.8 K/uL (2.0-10.0); MONOCYTES % (AUTO) 11.4 % (0.0-11.0); NEUTROPHILS # (AUTO) 5.5 K/uL (1.8-8.9); NEUTROPHILS % (AUTO) 79.2 % (38.5-71.5); PLATELET COUNT (AUTO) 153 K/uL (179-408); RED BLOOD CELL COUNT(AUTO) 3.33 MIL/uL (3.63-4.92)
[2019-06-17 20:50] LABS: BILIRUBIN,DIRECT 0.1 mg/dL (0.0-0.2); BILIRUBIN,TOTAL 0.8 mg/dL (0.2-1.0); CREATININE 0.9 mg/dL (0.6-1.3); TOTAL PROTEIN, SERUM 6.6 g/dL (6.4-8.2)
[2019-06-17] MEDS ORDERED: FUROSEMIDE 40 MG/4 ML VIAL ONE (21:51)
--- NOTE | 2019-06-17 22:03 | NUR ---
Dr. Reinoso aware of critical values of Na111 & Glucose 729. Accuchek 242. Per Dr. Reinoso, critical lab values not accurate. No new orders at this time.
[2019-06-17 22:30] VITALS: BP 110/58
[2019-06-17] MEDS ORDERED: ZOLPIDEM 5 MG TABLET PO PRN (22:30)
[2019-06-17] MEDS ORDERED: HYDROCODONE/APAP 5-325MG TABLET PO PRN (22:30)
[2019-06-17] MEDS ORDERED: MAGNESIUM HYDROXIDE 30 ML LIQUID UDC PO PRN (22:30)
[2019-06-17] MEDS ORDERED: DEXTROSE 50% 50 ML DISP.SYRIN IV PRN (22:30)
[2019-06-17] MEDS ORDERED: ONDANSETRON 4 MG/2 ML VIAL IV PRN (22:30)
[2019-06-17] MEDS ORDERED: Z GUARD REMEDY PASTE 57 GM TUBE TOP PRN (22:30)
[2019-06-17] MEDS ORDERED: CEFEPIME HCL 1 G VIAL ONE (23:12)
[2019-06-17] MEDS: CEFEPIME HCL 1 G in IV DEXTROSE 5% 50 ML IV SCH (23:20)
--- NOTE | 2019-06-17 23:30 | NUR ---
Received pt in CCU bed 1, eyes open spontaneously, nonverbal, withdraws to painful stimuli. Dx: Respiratory distress/hyponatremia severe. Pt with trach collar, on cool aerosol FIO2 95%. O2 sats above 98%. Tele placed and noted to be SR with HR 65. No acute distress noted. F/C in place. Monitor urine output. Continue antibiotic therapy. VSS, afebrile. Pt turned and repositioned. Safety and aspiration precautions initiated. Continue plan of care.
[2019-06-17] MEDS: IV NORMAL SALINE 250 ML IV PRN (23:32)
[2019-06-17] MEDS ORDERED: VANCOMYCIN IV 200 ML ONE (23:42)
[2019-06-18] VITALS (23 sets, daily range): BP systolic 93–159; BP diastolic 36–93
[2019-06-18] MEDS ORDERED: VANCOMYCIN IV 1,000 MG in IV DEXTROSE 5% 250 ML IV ONE ×2
[2019-06-18] MEDS: BLOOD SUGAR DIAGNOSTIC 1 EACH STRIP VI SCH ×6 (00:11→19:47)
[2019-06-18] MEDS: INSULIN REGULAR, HUMAN 300 UNIT/3 ML VIAL SQ PRN ×5 (00:25→19:48)
[2019-06-18] MEDS: ALBUTEROL SULFATE 2.5 MG/3 ML NEBU NEB PRN ×3 (00:40→21:05)
[2019-06-18] MEDS: IPRATROPIUM BROMIDE 0.5 MG/2.5 ML NEBU NEB PRN ×3 (00:40→21:05)
--- NOTE | 2019-06-18 02:11 | NUR ---
Paged research professional PRIYANK WHITMAN NP regarding pt critical lab values (SODIUM/POTASSIUM LEVELS). New orders received. Continue to monitor.
[2019-06-18] MEDS ORDERED: ALBUTEROL SULFATE 2.5 MG/3 ML NEBU NEB ONE (02:30)
[2019-06-18] MEDS ORDERED: SODIUM POLYSTYRENE SULFONATE 15 G/60 ML LIQUID UDC GT ONE (02:30)
[2019-06-18] MEDS ORDERED: SODIUM POLYSTYRENE SULFONATE 15 G/60 ML LIQUID UDC ONE (02:44)
[2019-06-18] MEDS ORDERED: INSULIN REGULAR, HUMAN 300 UNIT/3 ML VIAL ONE (02:44)
[2019-06-18] MEDS: CEFEPIME HCL 1 G in IV DEXTROSE 5% 50 ML IV SCH (05:35)
[2019-06-18 06:13] LABS: BASOPHILS % (AUTO) 0.1 % (0.0-2.0); HEMATOCRIT 32.6 % (31.2-41.9); HEMOGLOBIN 10.8 g/dL (10.9-14.3); LYMPHOCYTES % (AUTO) 12.2 % (20.5-51.5); MEAN CORPUSCULAR HEMOGLOBIN 28.9 uug (24.7-32.8); MEAN CORPUSCULAR HGB CONC 33 g/dL (32.3-35.6); MONOCYTES % (AUTO) 12.3 % (0.0-11.0); NEUTROPHILS # (AUTO) 6.4 K/uL (1.8-8.9); NEUTROPHILS % (AUTO) 75.4 % (38.5-71.5); PLATELET COUNT (AUTO) 187 K/uL (179-408); RED BLOOD CELL COUNT(AUTO) 3.75 MIL/uL (3.63-4.92); WHITE BLOOD COUNT (AUTO) 8.5 K/uL (3.8-11.8)
[2019-06-18 06:23] LABS: CREATININE 0.8 mg/dL (0.6-1.3); MAGNESIUM 2.2 mg/dL (1.8-2.4); PHOSPHOROUS 2.9 mg/dL (2.5-4.9)
--- NOTE | 2019-06-18 06:45 | NUR ---
Pt rested well in between care. Remains nonverbal, withdraws to painful stimuli. Pt tolerating current O2 settings. No acute distress noted. AM care rendered. Kayexalate given via Gtube, noted large BM x2. Kept pt clean and dry. VSS, afebrile. Q2H repositioning. Safety precautions maintained. Will endorse accordingly.
--- NOTE | 2019-06-18 07:30 | NUR ---
RECIEVED PT LYING IN BED IN SEMI FOWLERS POSITION. BOTH EYES OPENS SPONTANEOSLY BUT NO TRACKING. ALL EXTREMETIES ARE RIGID AND STIFF. HR IS SR WITH OCC PAC. IVF TKO ON THE LEFT FA G20. NO APPARENT RESPIRATORY DISTRESS NOTED. PT ON CHRONIC TRACHE SHILEY 4, WITH A COOL AEROSOL AT 60% FIO2. TOLERATING WELL, SAT 96-98%. SUCTION SMALL AMOUNT OF THIN WHITISH PHLEGM. LUNGS HAS SCATERRED INSPIRATORY WHEEZING ALL OVER, RT NOTIFIED AND PT GOT HER RESPIRATORY TX. NPO. GT CLAMPED. SKIN IS INTACT. REPOSITION FROM SIDE TO SIDE AT FREQUENT INTERVAL. TEMP 99.4F.
--- NOTE | 2019-06-18 08:30 | NUR ---
SEEN AND EXAMINED BY DR MORENO WITH NEW ORDERS.
[2019-06-18] MEDS: FUROSEMIDE 40 MG/4 ML VIAL IV SCH (08:35)
--- NOTE | 2019-06-18 09:02 | NUR ---
Clinical Pharmacy Note: Vancomycin Dosing per Pharmacy Subjective: Vancomycin IV to continue on this 84 yo female patient from [facility] for documented infection (sepsis, UTI) . Objective: BUN 23/Scr 0.8 WBC 8.5 Temperature 98.4 Vanco trough level on 06/17 at 1830 : 6.9 (reported for SA account while on vanco 1gm IVPB q24h but this is before 3rd dose not 4th dose) ht 157 cm wt 46 kg Assessment/Plan: Patient received vanco 1gm IVPB x1 on 06/18 at midnight. Will continue vanco 1gm IVPB q24h. 2nd dose on 06/19 at midnight . Plan to check vanco trough level before 4th dose (not yet ordered). Will monitor renal function & adjust the dose if needed. Will monitor daily.
[2019-06-18] MEDS: ACETAMINOPHEN 325 MG TABLET PO PRN ×2 (16:36→21:59)
--- NOTE | 2019-06-18 16:48 | NUR ---
PICC LINE NURSE AT BEDSIDE.
[2019-06-18] MEDS: GLUCERNA SHAKE VANILLA 237 ML CAN GT SCH (17:41)
--- NOTE | 2019-06-18 18:10 | NUR ---
PT IS BEING TRANSFERED TO TELEMETRY. REPORT GIVEN TO HOUSTON BROWN. Addendum: 06/18/19 at 1851 by KRISTI RICH RN ABOVE NOTE IS AN ERROR. IT IS A NOTE FOR ANOTHER PATIENT. DENIZ BROWN
--- NOTE | 2019-06-18 18:30 | NUR ---
PT HAS BEEN SEEN BY DR RM AND DR PRESCOTT WITH NEW ORDERS.
--- NOTE | 2019-06-18 19:45 | NUR ---
seen and examined by bianca hillman wastewater treatment plant chemist c/o SR to AFIB ,as per HARSH conservative cardiac management and to continue to monitor heart rhythm . continue cardiac medication .start o asa 81 mg /daily .
--- NOTE | 2019-06-18 19:51 | NUR ---
respiratory therapist at bedside gave patient breathing treatment . suction patient and collected sputum for c and s ,sample send to lab.
--- NOTE | 2019-06-18 20:00 | NUR ---
f/s done blood sugar 143 given ISS aggressive 2 units .continue to monitor blood sugar q 4 hourly .
--- NOTE | 2019-06-18 20:16 | NUR ---
seen by son and updated with patient status and condition .
--- NOTE | 2019-06-18 20:45 | NUR ---
patient son ROSS and another brother to his at bedside verbalized he wants to transfer her mother to another facility [facility] and he is signing AMA no matter want and wants it done now .informed that we cannot just transfer patient like that there is a process . primary doctor needs to be notified and there should be an accepting doctor from the other facility and md to md should be done . case operator should also be involved and insurance will be verified and transportation should be made and a copy of patient medical record and cd should be copied.patient SON went to the nursing office and will speak to the nursing photoengraving supervisor RASHAD YIN .
--- NOTE | 2019-06-18 21:15 | NUR ---
called [employer] and spoked with LEONARDO SHARPE and informed about the patient son ROSS ,son SONU and daughter Rhoda wants to do to transfer patient to [facility] ,as per DELL PATTERSON they have all the right to transfer the patient to where they want or to any hopsital that they choices .the have to call there own ambulance and make sure its ACLS /with respiratory therapist .have them sign AMA .make a copy of the medical records and CDS .
--- NOTE | 2019-06-18 21:16 | NUR ---
CENTERLESS GRINDING MACHINE ADJUSTER RASHAD YIN AT BEDSIDE SPOKED WITH SON ROSS AND DISCUSSED THE PROCESS OF SIGNING AMA AND ARRANGING OWN TRANSPORTATION FOR TRANSFER .
--- NOTE | 2019-06-18 21:16 | NUR ---
HARRISON SHARPE spoked with SON ROSS VIA PHONE .
--- NOTE | 2019-06-18 21:34 | NUR ---
spoked son ROSS ,son SONU and patients daughter Rhoda at bedside and all of them decided to do the transfer tomorrow and not tonight ,called nursing supervisor stage carpentry RASHAD and informed her .
--- NOTE | 2019-06-18 21:59 | NUR ---
facial grimaces noted and as per son at bedside AMIR ,shes in pain .given Tylenol prn for pain using the flacc scale grimaces and seems restless hr 110.moving upper and lower extremities .
--- NOTE | 2019-06-18 22:21 | NUR ---
changed soiled linens and gown . patient had a bm soft small in amt ,turned and reposition . elevated upper amr with pillows and lower extremities with pillows scds used to the ble . heels offloaded .
--- NOTE | 2019-06-18 23:00 | NUR ---
called charline and informed patient is doing sr 80 to 90 to afib rate 125 to 123 not sustained in and out afib to sr . no orders to continue to monitor .
[2019-06-19] VITALS (15 sets, daily range): BP systolic 99–167; BP diastolic 33–94
[2019-06-19] MEDS: VANCOMYCIN IV 1,000 MG in IV DEXTROSE 5% 250 ML IV SCH (00:27)
[2019-06-19] MEDS: GLUCERNA SHAKE VANILLA 237 ML CAN GT SCH ×4 (00:28→18:17)
[2019-06-19] MEDS: BLOOD SUGAR DIAGNOSTIC 1 EACH STRIP VI SCH ×6 (00:37→20:38)
[2019-06-19] MEDS: INSULIN REGULAR, HUMAN 300 UNIT/3 ML VIAL SQ PRN ×5 (00:39→20:59)
--- NOTE | 2019-06-19 01:00 | NUR ---
turned and reposition patient suction via trach and via mouth .patient son at b/s will stay all night to help with care.
[2019-06-19] MEDS: IV NORMAL SALINE 250 ML IV PRN (01:18)
[2019-06-19] MEDS: ALBUTEROL SULFATE 2.5 MG/3 ML NEBU NEB PRN ×2 (02:35→14:27)
[2019-06-19] MEDS: IPRATROPIUM BROMIDE 0.5 MG/2.5 ML NEBU NEB PRN ×2 (02:35→14:27)
[2019-06-19 04:53] LABS: BASOPHILS % (AUTO) 0.1 % (0.0-2.0); EOSINOPHILS % (AUTO) 0.1 % (0.0-7.0); HEMOGLOBIN 10.4 g/dL (10.9-14.3); LYMPHOCYTES % (AUTO) 13.3 % (20.5-51.5); MEAN CORPUSCULAR HGB CONC 34 g/dL (32.3-35.6); MEAN CORPUSCULAR VOLUME 86.2 fL (75.5-95.3); MONOCYTES # (AUTO) 0.9 K/uL (2.0-10.0); MONOCYTES % (AUTO) 11.5 % (0.0-11.0); NEUTROPHILS # (AUTO) 5.8 K/uL (1.8-8.9); PLATELET COUNT (AUTO) 184 K/uL (179-408); WHITE BLOOD COUNT (AUTO) 7.8 K/uL (3.8-11.8)
[2019-06-19 05:05] LABS: CREATININE 0.7 mg/dL (0.6-1.3); MAGNESIUM 1.9 mg/dL (1.8-2.4); PHOSPHOROUS 2.9 mg/dL (2.5-4.9); POTASSIUM 3.7 mmol/L (3.5-5.1)
[2019-06-19] MEDS: CEFEPIME HCL 1 G in IV DEXTROSE 5% 50 ML IV SCH (05:06)
--- NOTE | 2019-06-19 05:30 | NUR ---
patient noted facial grimacing and afib rate 131 ,restless ,given Tylenol prn via peg and flushed peg .given 6 glucerna via peg and flused tolerated tf no residual .hob.
[2019-06-19] MEDS: ACETAMINOPHEN 325 MG TABLET PO PRN ×3 (05:33→22:00)
--- NOTE | 2019-06-19 07:20 | NUR ---
Received report, patient is afib HR 138, no fever noted at this time. Trach with mask @ 60% fio2. Air mattress inflated, crawford draining clear yellow urine, picc line in upper left arm. DVT pumps on. Gtube clamped.
--- NOTE | 2019-06-19 07:20 | NUR ---
CALLED DOCTOR FRANCISCO C/O AFIB RATE 136, WITH ORDERS FOR LANOXIN 0.5 MG IVP .
[2019-06-19] MEDS ORDERED: DIGOXIN 500 MCG/2 ML AMP IV ONE (07:30)
--- NOTE | 2019-06-19 08:00 | NUR ---
Patient repositioned, oral care performed, suctioned and crawford care done at this time. Will continue to monitor.
[2019-06-19 08:39] LABS: ABG BASE EXCESS 6.6 mmol/L; ABG HCO3 32.4 mmol/L; ABG PCO2 52.1 mmHg (35.0-45.0); ABG PH 7.411 (7.350-7.450); ABG PO2 88.1 mmHg (75.0-100.0); ABG SITE LEFT RADIAL; ABG TOTAL HEMOGLOBIN 11.3 G/dL (12.0-16.0); COHb 1.1 % (0.5-1.5); MetHb 0.1 % (0.0-1.5); O2Hb 95.8 % (94.0-97.0); VENT MODE COOL AEROSOL
[2019-06-19] MEDS: ASPIRIN 81 MG TAB.CHEW GT SCH (09:06)
[2019-06-19] MEDS: FUROSEMIDE 40 MG/4 ML VIAL IV SCH (09:06)
--- NOTE | 2019-06-19 11:00 | NUR ---
Patient had large stool, Cleansed, barrier protectant applied and crawford care done. Repositioned patient.
--- NOTE | 2019-06-19 11:54 | NUR ---
Clinical Pharmacy Note: Vancomycin Dosing per Pharmacy Subjective: Vancomycin IV to continue on this 84 yo female patient from [facility] for documented infection (sepsis, UTI) . Objective: BUN 24/Scr 0.7 WBC 7.8 Temperature 98.4 Vanco trough level on 06/17 at 1830 : 6.9 (reported for SA account while on vanco 1gm IVPB q24h but this is before 3rd dose not 4th dose) ht 157 cm wt 46 kg Assessment/Plan: Patient received vanco 1gm IVPB x1 on 06/18 at midnight. Will continue vanco 1gm IVPB q24h. 3rd dose on 06/20 at midnight . Plan to check vanco trough level before 4th dose (not yet ordered). Will monitor renal function & adjust the dose if needed. Will monitor daily.
--- NOTE | 2019-06-19 12:45 | NUR ---
Echocardiogram being performed at this time.
--- NOTE | 2019-06-19 13:07 | NUR ---
Oral care performed, suctioned, and partial linen change completed with position change. Patient in no distress, Dr wu called for BP elevation 152/34
--- NOTE | 2019-06-19 15:00 | NUR ---
Report given to John [facility] nurse. Patient is being transferred to room 309 with RT and RN Migdalia.
--- NOTE | 2019-06-19 15:05 | NUR ---
received per bed from ccu, awake but nonverbal, on O2at 15L FI02 60% per mask via tracheostomy, with sat of 99%, tele- afib @70, GT intact and clamped at this time, abdomen soft, incontinent of soft yellow brownish stool, washed and kept clean and dry, repositioned to left side with pillows for support and heels floated with pillows, crawford cath draining yellow urine, on first step mattress and dvt pumps on. daughter at bedside
--- NOTE | 2019-06-19 17:04 | NUR ---
suctioned of thin secretions via trache after oral care given , daughter at bedside, remains on afib 65, sat at 97%
[2019-06-19] MEDS ORDERED: SIMETHICONE 80 MG TAB.CHEW GT PRN (18:15)
[2019-06-19] MEDS ORDERED: [UNRECOGNIZED DRUG - OTHER] GT SCH (18:15)
[2019-06-19] MEDS ORDERED: BISACODYL 10 MG SUPP.RECT RC PRN (18:15)
--- NOTE | 2019-06-19 18:31 | NUR ---
seen by Kassidy Lenz EQUITY HOLDER- no new orders, pt remains on controlled a fib- also seen by Dr Briones(garden labourer), on 15l/mask with sat at 99%, glucerna 240ml given- no residual noted, kept head elevated for aspiration precautions, caregiver at bedside, all needs attended to, repositioned to right side with pillows for support
--- NOTE | 2019-06-19 19:45 | NUR ---
PATIENT AWAKE, NO S/S OF SOB, NO S/S OF CHEST PAIN. TELE MONITOR A FIB CONTROLL. TRACH INTACT, SUCTIONED Q2 HRS AND PRN. GT INTACT PATENT, MCKIN[place] PATENT, PATIENT HAS EPISODE OF RESTLESS, CAUSING HEART RATE TO INCREASED, KEPT CLEAN DRY AND COMFORTABLE, WILL MEDICATED FOR PAIN NEEDED, CONT TO MONITOR.
[2019-06-19] MEDS ORDERED: CARBIDOPA/LEVODOPA 25-250MG TABLET GT SCH (20:00)
[2019-06-19] MEDS ORDERED: ENTACAPONE 200 MG TABLET GT SCH (20:00)
[2019-06-19] MEDS: LEVETIRACETAM 500 MG/5 ML LIQUID UDC GT SCH (20:54)
[2019-06-19] MEDS: DOCUSATE SODIUM 100 MG CAPSULE PO SCH (20:55)
[2019-06-19] MEDS: BACLOFEN 10 MG TABLET GT SCH (20:55)
[2019-06-19] MEDS: DULOXETINE 20 MG CAPSULE.DR PO SCH (20:55)
[2019-06-19] MEDS: ACIDOPHILUS/BULGARICUS CHEW TAB GT SCH (20:55)
[2019-06-19] MEDS: AZILECT 1 MG GT SCH (20:55)
[2019-06-19] MEDS: FAMOTIDINE 20 MG TABLET GT SCH (20:55)
[2019-06-19] MEDS: ASCORBIC ACID 500 MG TABLET GT SCH (20:55)
[2019-06-19] MEDS: METOPROLOL TARTRATE 25 MG TABLET PO SCH (20:56)
[2019-06-19] MEDS: RIVAROXABAN 15 MG TABLET PO SCH (20:58)
[2019-06-19] MEDS ORDERED: RIVAROXABAN 15 MG TABLET PO SCH (21:00)
[2019-06-19] MEDS ORDERED: TERIPARATIDE 20 MCG SUBCUT SCH (21:00)
[2019-06-19] MEDS ORDERED: LEVETIRACETAM GT SCH (21:00)
[2019-06-19] MEDS: TERIPARATIDE SQ SCH (21:00)
[2019-06-19] MEDS: THIAMINE HCL 100 MG TABLET GT SCH (21:13)
[2019-06-19] MEDS: FORTEO SQ SCH (21:13)
[2019-06-20] MEDS: CARBIDOPA/LEVODOPA 25-250MG TABLET GT SCH ×6 (00:11→20:23)
[2019-06-20] MEDS: ENTACAPONE 200 MG TABLET GT SCH ×6 (00:11→20:22)
[2019-06-20] MEDS: VANCOMYCIN IV 1,000 MG in IV DEXTROSE 5% 250 ML IV SCH (00:11)
[2019-06-20] MEDS: BLOOD SUGAR DIAGNOSTIC 1 EACH STRIP VI SCH ×6 (00:21→21:41)
[2019-06-20] MEDS: GLUCERNA SHAKE VANILLA 237 ML CAN GT SCH ×4 (00:27→17:10)
[2019-06-20] MEDS: ALBUTEROL SULFATE 2.5 MG/3 ML NEBU NEB PRN ×4 (02:03→20:17)
[2019-06-20] MEDS: IPRATROPIUM BROMIDE 0.5 MG/2.5 ML NEBU NEB PRN ×4 (02:03→20:17)
[2019-06-20] MEDS: INSULIN REGULAR, HUMAN 300 UNIT/3 ML VIAL SQ PRN ×4 (04:33→20:43)
[2019-06-20 06:11] LABS: BASOPHILS % (AUTO) 0.1 % (0.0-2.0); EOSINOPHILS % (AUTO) 0.1 % (0.0-7.0); HEMOGLOBIN 11.9 g/dL (10.9-14.3); LYMPHOCYTES # (AUTO) 1.3 K/uL (20.0-40.0); MEAN CORPUSCULAR HEMOGLOBIN 28.9 uug (24.7-32.8); MEAN CORPUSCULAR HGB CONC 33 g/dL (32.3-35.6); MEAN CORPUSCULAR VOLUME 87.5 fL (75.5-95.3); MONOCYTES # (AUTO) 1.1 K/uL (2.0-10.0); MONOCYTES % (AUTO) 11.5 % (0.0-11.0); NEUTROPHILS # (AUTO) 6.8 K/uL (1.8-8.9); NEUTROPHILS % (AUTO) 74.3 % (38.5-71.5); PLATELET COUNT (AUTO) 216 K/uL (179-408); RED BLOOD CELL COUNT(AUTO) 4.11 MIL/uL (3.63-4.92); WHITE BLOOD COUNT (AUTO) 9.2 K/uL (3.8-11.8)
[2019-06-20 06:34] LABS: CARBON DIOXIDE 34 mmol/L (21-32); CHLORIDE 94 mmol/L (98-107); CREATININE 0.5 mg/dL (0.6-1.3); GLUCOSE 236 mg/dL (74-106); MAGNESIUM 2.4 mg/dL (1.8-2.4); PHOSPHOROUS 2.4 mg/dL (2.5-4.9); POTASSIUM 4.3 mmol/L (3.5-5.1); UREA NITROGEN, BLOOD 17 mg/dL (7-18)
--- NOTE | 2019-06-20 07:09 | NUR ---
PATIENT AWAKE BUT WITH CONFUSION, NO S/S OF SOB, NO S/S CHEST PAIN. TRACH INTACT SUCTIONED Q 2 HRS AND NEEDED. OXYGEN SAT 92 TO 100 AT 15LPM VIA PMIST. GT INTACT TOLERATE GT FEEDING NO RESIDUAL NOTED, PATIENT MCKINNON DRAINING WITH YELLOW CHARI COLOR IN MODERATE AMOUNT. PATIENT HAS NO S/S OF HYPO/HYPERGLYCEMIA NOTED, PATIENT HAS EPISODE OF ANXIETY, CAUSING TO RAISE HEART RATE, CONT TO REORIENT, KEPT COMFOTABLE, CONT TO MONITOR.
[2019-06-20 07:55] VITALS: BP 109/33
--- NOTE | 2019-06-20 08:02 | NUR ---
Awake, on moderate high back rest, noted raising of left leg. Repositioned comfortably on air mattress. Trach shilley #4 to p mist at 15L with 60% FIO2 on continuous pulse Ox with O2 sat of 99%. Tele afib 105
[2019-06-20] MEDS ORDERED: MAGNESIUM OXIDE 250 MG TABLET GT SCH (09:00)
[2019-06-20] MEDS ORDERED: CRANBERRY 450 MG GT SCH (09:00)
[2019-06-20] MEDS ORDERED: MODAFINIL 100 MG TABLET GT SCH (09:00)
[2019-06-20] MEDS ORDERED: Medication Not On Formulary EA (Acidophilus/Bulgaricus (Floranex Tablet) 1 EACH) GT SCH (09:00)
[2019-06-20] MEDS ORDERED: AMANTADINE HCL 100 MG CAPSULE GT SCH (09:00)
[2019-06-20] MEDS ORDERED: CRANBERRY 250 MG GT SCH (09:00)
[2019-06-20] MEDS ORDERED: Medication Not On Formulary EA (Cholecalciferol (Vitamin D3) (Vitamin D CAPSULE) 2,000 U GT SCH (09:00)
[2019-06-20] MEDS ORDERED: CHOLECALCIFEROL 1,000 UNIT TABLET GT SCH (09:00)
[2019-06-20] MEDS ORDERED: MIRALAX 17 GM POWD.PACK GT SCH (09:00)
[2019-06-20] MEDS ORDERED: MODAFINIL 200 MG GT SCH (09:00)
[2019-06-20] MEDS ORDERED: MULTIVIT, IRON, MIN NO. 8, FA TABLET GT SCH (09:00)
[2019-06-20] MEDS ORDERED: Medication Not On Formulary EA (Cranberry Extract (Cranberry) 450 MG) GT SCH (09:00)
[2019-06-20] MEDS: ASPIRIN 81 MG TAB.CHEW GT SCH (09:01)
[2019-06-20] MEDS: FAMOTIDINE 20 MG TABLET GT SCH ×2 (09:03→20:21)
[2019-06-20] MEDS: DOCUSATE SODIUM 100 MG CAPSULE PO SCH ×2 (09:05→21:42)
[2019-06-20] MEDS: BETHANECHOL CHLORIDE 25 MG TABLET GT SCH ×3 (09:05→16:46)
[2019-06-20] MEDS: METOPROLOL TARTRATE 25 MG TABLET PO SCH ×2 (09:06→20:22)
[2019-06-20] MEDS: LEVETIRACETAM 500 MG/5 ML LIQUID UDC GT SCH ×2 (09:07→20:21)
[2019-06-20] MEDS: CEFEPIME HCL 1 G in IV DEXTROSE 5% 50 ML IV SCH (09:07)
[2019-06-20] MEDS: ACIDOPHILUS/BULGARICUS CHEW TAB GT SCH ×2 (09:07→20:23)
[2019-06-20] MEDS: MEMANTINE HCL 10 MG TABLET GT SCH ×2 (09:08→16:46)
--- NOTE | 2019-06-20 10:00 | NUR ---
Secretions suctioned. oral care done. O2 decreased to 10L at 40 % FIO2, with O2 sat of 98%
[2019-06-20] MEDS ORDERED: NEUTRA PHOS PACKET PO ONE (11:00)
[2019-06-20 11:06] VITALS: BP 147/46
[2019-06-20] MEDS: ACETAMINOPHEN 325 MG TABLET PO PRN (12:24)
--- NOTE | 2019-06-20 15:00 | NUR ---
O2 decreased to 8L at 30% FIO2 with O2 sat of 96%. Secretions suctioned at interval.
--- NOTE | 2019-06-20 15:01 | NUR ---
Clinical Pharmacy Note: Vancomycin Dosing per Pharmacy Subjective: Vancomycin IV to continue on this 84 yo female patient from [facility] for documented infection (sepsis, UTI) . Objective: BUN 17/Scr 0.5 WBC 9.2 Temperature 97.6 Vanco trough level on 06/17 at 1830 : 6.9 (reported for SA account while on vanco 1gm IVPB q24h but this is before 3rd dose not 4th dose) Vanco trough level pending tonight at 2330 ht 157 cm wt 46 kg Assessment/Plan: Will continue vanco 1gm IVPB q24h. 3rd dose was today 06/20 at midnight . Plan to check vanco trough level before 4th dose (due tonight at 2330). Will check trough in am and adjust as needed. Will follow
[2019-06-20 16:07] VITALS: BP 110/32
--- NOTE | 2019-06-20 18:38 | NUR ---
Repositioned comfortably. Tolerated tube feeding, no residual noted. Afebrile. Kept dry and comfortable
--- NOTE | 2019-06-20 19:00 | NUR ---
PATIENT AWAKE BUT NON VERBAL, NO S/S OF SOB, NO S/S OF CHEST PAIN. PICC LINE INTACT AND PATENT, MCKINNON DRAINING WITH YELLOW COLOR URINE IN MODERATE AMOUNT. PATIENT TRACT INTACT ON P MIST OXYGEN, NO S/S OF DESATURATION NOTED, KEPT CLEAN DRY AND COMFORTABLE. SON REQUESTING TO SEE THE CHARGE NURSE, AND WANTED TO TRANSFER HIS MOTHER TO [facility], CLAIMING THAT HIS MOTHER NOT IMPROVING IN OUR CARE. KEVIN SWENSON EXPLAINED TO SON CURRENT LABS AND XRAY, AND WHAT NOTES, BUT DECIDED TO TRANSFER HIS MOTHER TO [facility]. SON MADE HIS OWN ARRANGEMENTS FOR TRANSPORTATION, AMBULANCE.
[2019-06-20 20:05] VITALS: BP 148/91
[2019-06-20 20:22] VITALS: BP 148/91
[2019-06-20] MEDS: THIAMINE HCL 100 MG TABLET GT SCH (20:22)
[2019-06-20] MEDS: ASCORBIC ACID 500 MG TABLET GT SCH (20:22)
[2019-06-20] MEDS: DULOXETINE 20 MG CAPSULE.DR PO SCH (20:22)
[2019-06-20] MEDS: AZILECT 1 MG GT SCH (20:24)
[2019-06-20] MEDS: BACLOFEN 10 MG TABLET GT SCH (20:25)
[2019-06-20] MEDS: TERIPARATIDE SQ SCH (20:43)
[2019-06-20] MEDS: FORTEO SQ SCH (21:42)
[2019-06-20] MEDS: RIVAROXABAN 15 MG TABLET PO SCH (21:43)
--- NOTE | 2019-06-20 22:48 | NUR ---
PATIENT ALERT BUT NON VERBAL, NO S/S OF SOB,NO S/S OF CHEST PAIN, TELE MONITOR AFIB CONTROLLED, SON DECIDED TO TAKE HIS MOTHER AMClinton TO [facility], DR MORENO WAS NOTIFIED, PATIENT STABLE AT THIS TIME. NO S/S OF DISTRESS, PICC LINE ON LEFT UPPER ARM INTACT, [place] CATH PATENT DRAINING WITH YELLOW COLOR URINE IN MODERATE AMOUNT. AMBULANCE WAS ARRANGED BY SON, AMBULANCE WITH ACLS/RT STAFF. SON HAS COPIES OF MEDICATION LIST, XRAY DONE, CD FROM XRAY.
--- NOTE | 2019-06-20 23:00 | NUR ---
PATIENT WAS PICKED UP BY AMBULANCE, GAVE REPORT TO AMBULANCE STAFF, RT SUCTIONED THE PATIENT MAKING SURE TRACH IN PROPER ORDER, CONSULTING UTILITY FORESTER CHECK PICC LINE, AND GT, [place] IN PROPER ORDER ALSO. PATIENT SKIN INTACT, GT SITE CLEAN TRACH SITE CLEAN. DRESSING ON PICC LINE CLEAN AND INTACT, SON TOOK PATIENT FORTEO INJ MEDICATION WITH HIM, AND ALL PATIENT BELONGINGS.
[2019-06-21] MEDS ORDERED: Medication Not On Formulary EA (Multivitamins (Multivitamin) 1 EACH) GT SCH (09:00)
== END 2019-06-20 22:59 | disposition left against medical advice (07) | DRG 871 ==
LOC: ER 20:02 → CCU 22:05 → TELE-TD3 06-19 14:52
PROVIDERS: ADMIT Student in an Organized Health Care Education/Training Program; ATTEND Student in an Organized Health Care Education/Training Program
PROC: 02HV33Z Insertion of Infusion Device into Superior Vena Cava, Percutaneous Approach (ICD-10-PCS; principal; 2019-06-18)
DX: A41.9 Sepsis, unspecified organism (principal); J18.9 Pneumonia, unspecified organism; J96.22 Acute and chronic respiratory failure with hypercapnia; J96.21 Acute and chronic respiratory failure with hypoxia; I21.A1 Myocardial infarction type 2; I50.33 Acute on chronic diastolic (congestive) heart failure; E87.1 Hypo-osmolality and hyponatremia; D68.59 Other primary thrombophilia; I69.351 Hemiplegia and hemiparesis following cerebral infarction affecting right dominant side; G93.1 Anoxic brain damage, not elsewhere classified; I48.20 Chronic atrial fibrillation, unspecified; I13.0 Hypertensive heart and chronic kidney disease with heart failure and stage 1 through stage 4 chronic kidney disease, or unspecified chronic kidney disease; N39.0 Urinary tract infection, site not specified; M80.08XA Age-related osteoporosis with current pathological fracture, vertebra(e), initial encounter for fracture; G31.83 Neurocognitive disorder with Lewy bodies; F02.80 Dementia in other diseases classified elsewhere, unspecified severity, without behavioral disturbance, psychotic disturbance, mood disturbance, and anxiety; Z74.09 Other reduced mobility; Z93.0 Tracheostomy status; R40.2252 Coma scale, best verbal response, oriented, at arrival to emergency department; R40.2362 Coma scale, best motor response, obeys commands, at arrival to emergency department; R40.2142 Coma scale, eyes open, spontaneous, at arrival to emergency department; I27.20 Pulmonary hypertension, unspecified; G40.909 Epilepsy, unspecified, not intractable, without status epilepticus; I25.10 Atherosclerotic heart disease of native coronary artery without angina pectoris; Z95.1 Presence of aortocoronary bypass graft; E78.5 Hyperlipidemia, unspecified; E11.22 Type 2 diabetes mellitus with diabetic chronic kidney disease; N18.2 Chronic kidney disease, stage 2 (mild); I50.9 Heart failure, unspecified; B96.20 Unspecified Escherichia coli [E. coli] as the cause of diseases classified elsewhere; E03.9 Hypothyroidism, unspecified; Z79.890 Hormone replacement therapy; E87.5 Hyperkalemia; Z88.8 Allergy status to other drugs, medicaments and biological substances; E78.00 Pure hypercholesterolemia, unspecified; I25.2 Old myocardial infarction; N31.9 Neuromuscular dysfunction of bladder, unspecified; M19.90 Unspecified osteoarthritis, unspecified site; Z86.19 Personal history of other infectious and parasitic diseases; Z83.3 Family history of diabetes mellitus; Z93.1 Gastrostomy status; Z87.440 Personal history of urinary (tract) infections; Z86.718 Personal history of other venous thrombosis and embolism; Z79.899 Other long term (current) drug therapy; Z79.4 Long term (current) use of insulin; Z79.01 Long term (current) use of anticoagulants; R13.10 Dysphagia, unspecified; D64.9 Anemia, unspecified; Z86.74 Personal history of sudden cardiac arrest; I48.0 Paroxysmal atrial fibrillation; G20 Parkinson's disease
CPT/HCPCS: 36415; 36600; 70030-TC; 71045; 83735; 84100; 84132; 84295; 85025; 87040; 87070; 87077; 93005; 93307; 94640; 94664; A4217; A4663; G0378; J0692; J1160; J1815; J1940; J3370; J3490; J3590; J7050; J7060